=== PATIENT | male | born 1965 | race Caucasian/White ===

== ENCOUNTER → 2018-04-18 13:27 | Outpatient (CLI) | payer OTHER, SELFPAY ==
--- NOTE | 2018-04-18 13:31 | RAD_ITS ---
STUDY: X-RAY - LUMBOSACRAL SPINE REASON FOR EXAM: Male, 53 years old. Pain. TECHNIQUE: 7 view(s) of the lumbosacral spine were obtained including flexion and extension. COMPARISON: None FINDINGS: Normal lumbar lordosis. There is no substantial scoliosis. There is normal alignment of the vertebrae. There is multilevel endplate spondylosis of the lumbar vertebrae. Multilevel mild loss of disc height and moderate loss of disc height at L5-S1. Grossly normal range of motion with no subluxations. Normal bilateral sacral ala, sacroiliac joints, and visualized sacrum. Normal visualized soft tissue structures. RAD/L/S Spine Comp/w Bending Views IMPRESSION: Multilevel mild to moderate degenerative disc disease and no acute abnormality. Electronically Signed: Martín Schaeffer MD at 20:04 EDT , Service support ,
== END ==
PROVIDERS: Family Provider Preventive Medicine Occupational Medicine; PCP Preventive Medicine Occupational Medicine; Visit Provider Orthopaedic Surgery
DX: M54.5 Low back pain (principal)
CPT/HCPCS: 72114

== ENCOUNTER 2018-05-24 17:00 | Outpatient (RCR) | payer OTHER, SELFPAY ==
--- NOTE | 2018-05-01 15:55 | HP.PTEVAL_ITS ---
Patient's Visit Information LAUREN FORD is a 53 year old M referred to Physical Therapy by Arcelia Chávez DO with a diagnosis of B sacralitis and IT band syndrome. Date of Evaluation: 04/24/18 Physical Therapist: Donell Britt - Visit Plan Frequency: 2x /Week Duration: 4 Weeks Plan: Start with extension progression. Assess leg length issues next visit. Re assess lateral shift with REIL. May use modalities as needed. - Subjective Subjective: Pt. is here today for his initial evaluation with diagnosis of B sacralitis and ITB syndrome. Pt. reports having back pain for many years, but has become worse reacently. 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 Pt. reports increased pain with sitting, AMs, lifting, bending and twisting. Decreased pain: staying active. Pt. has not had an MRI at this point in time. Xray showed mild disc height loss at L5/S1. Pt. denies N/T in either LE. Pt. has not trialed exercises, injections or medications at this point in time. He does report increased difficulty with sleeping as well. He reports no changes in B/B and no LE weakness. Pt. is hopeful to reduce symptoms in order to get back to all recreational activities without limitations. - Pain L side of lumbar spine/SI Pain Intensity (Out of 10): 3 Pain Intensity Range: 3, 7 - Objective POSTURE: Pt. has reduced lumbar lordsis in sitting and standing, sway back posture. He has slight left lateral shift with trunk correction. PALPATION: Pt. has increased pain to L sided SI joint and L lumbar paraspinals. Slight R sided pain. NEUROLOGICAL: PT. has normal sensation to light and sharp touch. Pt. has 2+ achilles and patellar DTR. Normal heel/toe raise. ROM: LUMBAR SPINE : flexion min loss increase nW, ext mod loss increase nW, SB min loss bilat mild increase NW bilat, rotation min loss incerase nW bilat. HIP- pt. has normal ROM of bilateral hips, tightness in B HS. MMT: Pt. has 5/5 BLE strength , except hip abd 4+/5, and ext 4+/5. Core strength- fair-. GAIT: Pt. has slight L lateral shift in stance and with gait. Pt. had decreased step lenght bilaterally. STAIRS: no increas in symptoms. - Goals Goal 1:: Pt. to be I with HEP. Goal Time Frame: 4-6 Weeks Goal 2:: Pt. to have increased lumabr ROM by 25% in all directions without increase insymptoms. Goal Time Frame: 4-6 Weeks Goal 3:: Pt. to have increased Core strength by 1/2 grade to reduce stress applied to lumbar spine. Goal Time Frame: 4-6 Weeks Goal 4:: Pt. to resume all work and rectional activities withot increase in symptoms. Goal Time Frame: 4-6 Weeks - Rehabilitation Potential Physical Therapy Diagnosis: Pt. has signs and symptoms consistent with B sacralitis and IT band syndrome. Can not rule on L5/S1 disc injury with lateral component. Pt. would benefit from PT to increase lumabr ROM and decrease symptoms. Rehabilitation Potential: Excellent - Anticipated Interventions Patient/Client Instruction: Educate patient on: Condition, Plan of Care, Risk Factors, Benefits of Fitness Program For the Purpose of:: To improve health and function, To foster healthy habits, To improve decision making, To facilitate caregiver knowledge, To improve self management, To prevent re-injury, To improve ability to perform tasks related to life management Therapeutic Exercise to Include: Strength training, Power training, Body mechanics, Postural training, Flexibilty training, Passive ROM, Active ROM, Dynamic Lumbar Stabilization, Mark Exercises For the Purpose of:: To decrease pain, To increase ROM, To improve nutrient delivery to tissue, To increase oxygenation perfusion, To improve muscle performance and motor function, To improve ability to perform ADL's, To improve health of tissue, To decrease soft tissue restriction, To increase flexibility/ ROM Manual Therapy Techniques to Include: Trigger point massage, Massage, Mobilization, Manipulation, Passive ROM, Functional dry needling, Soft tissue mobilization For the Purpose of:: To decrease pain, To increase ROM, To improve nutrient delivery to tissue, To increase oxygenation perfusion, To improve muscle performance and motor function, To improve ability to perform ADL's, To improve health of tissue, To decrease soft tissue restriction, To increase flexibility/ ROM IF ES: Yes Cryotherapy (ice pack, ice massage): Yes Thermo therapy (hot pack): Yes Ultrasound (thermal/non thermal): Yes Pelvic traction supine: Yes For the Purpose of:: To decrease pain, To decrease swelling/inflammation, To increase ROM, To improve health of tissue, To decrease soft tissue restriction, To increase flexibility/ROM, To foster healthy habits Thank you for the opportunity to evaluate your patient. For Medicare and Medicare HMO plans, please review the plan of care and approve it. It will need to be FAXED BACK to us at [phone] for Medicare purposes. Please let me know if there are questions or concerns regarding this plan of care. Physician Signature: Date:
--- NOTE | 2018-06-20 07:38 | HP.PTDCSUM ---
HP - PT D/C Summary It has been my pleasure to treat LAUREN FORD under orders from Arcelia Chávez DO, for the diagnosis of B sacralitis and IT band syndrome for a total of 9 visit(s). Discharge Date: 05/24/18 Please see the following information for a summary of their discharge status. - Subjective Subjective: Pt. reports I am doing a little better today.' Pt. reports symptoms are less frequent. Pt. pleased. Pt. reports being 80% better overall. Pt. desires to continue with HEP on own at this point in time. - Pain L side of lumbar spine/SI Pain Intensity (Out of 10): 0 - Overall Improvement % Improvement: 80 - Objective Objective/Function: ROM- flexion- nil loss NE, ext min loss decrease in symptoms, SB nil loss bilat NE, rotation nil loss NE. Pt. has tightness in HS. Pt. reports mild increase in symptoms at R SI joint with rolling over in bed. Pt. reports no pain with sitting or walking. No distal symptoms. Pt. has been trained in strengthening and in lumbar ROM exercises to complete and is independent with them. - Goals Goal 1:: Pt. to be I with HEP. Goal Progress: Goal Met Goal 2:: Pt. to have increased lumabr ROM by 25% in all directions without increase insymptoms. Goal Progress: Goal Met Goal 3:: Pt. to have increased Core strength by 1/2 grade to reduce stress applied to lumbar spine. Goal Progress: Progressing Goal 4:: Pt. to resume all work and rectional activities withot increase in symptoms. Goal Progress: Progressing - Plan Plan: Pt. to be DC to HEP and to follow up with physician if symptoms reoccure. Pt. is independent with current HEP. - D/C Information Discharge Comments: Pt. progressed with lumbar ROM, extension progression. Pt. did well with PA and REIL with over pressure. He was progressing to core stability exercises. Pt. has a proper HEP and is independent with it. Pt. will continue with HEP on own and be DC from PT at this point in time. If there are questions or concerns regarding this patient's physical therapy, please feel free to call me at [phone]. Thank you for the referral of this patient. Sincerely, Donell Britt
== END 2018-05-24 19:00 | disposition home or self-care (01) ==
LOC: PT 17:00
PROVIDERS: Family Provider Preventive Medicine Occupational Medicine; PCP Preventive Medicine Occupational Medicine; Visit Provider Orthopaedic Surgery
DX: M46.1 Sacroiliitis, not elsewhere classified (principal); M76.31 Iliotibial band syndrome, right leg; M76.32 Iliotibial band syndrome, left leg
CPT/HCPCS: 97014; 97110; 97161; G0283

== ENCOUNTER 2019-09-29 22:25 | Emergency (ER) | payer OTHER, SELFPAY ==
[2019-09-29 22:26] VITALS: BP 158/78; PULSE 72; RESP 20; TEMP 36.6; O2SAT 98; BMI 32.5
--- NOTE | 2019-09-29 22:39 | EKG12_ITS ---
Test Reason : PALPS Blood Pressure : / mmHG Vent. Rate : 073 BPM Atrial Rate : 073 BPM P-R Int : 130 ms QRS Dur : 090 ms QT Int : 398 ms P-R-T Axes : 040 031 009 degrees QTc Int : 438 ms Normal sinus rhythm Normal ECG Confirmed by POLI CAR MD ([id number]), editor map GUSTAVO CLARKE ([id number]) on 10/01/2019 2:46:37 PM Referred By: Confirmed By:POLI CAR MD
--- NOTE | 2019-09-29 22:39 | ED.VIS.GEN ---
History of Present Illness Chief Complaint: Palpitations Informant: Patient Onset: Month(s) - 1 Context: Gradual Onset Timing: Intermittent Quality: racing and beating hard Location: chest Current Severity: gone Maximum Severity: Moderate Worsened by: light exertion, lying flat Associated Symptoms: none; no chest pain, sob, lightheadedness/near-syncope, LE swelling Narrative: Patient has been feeling this way for about a month. When he climbs stairs he is getting headaches and just feeling like my blood pressure is up. He did not have his blood pressure checked until tonight at work, it was 190 systolic. He does not take any medication for blood pressure and states that he has always been around 110, normal and never required any treatment. He takes medication for hyperlipidemia and type 2 diabetes, those are not new and they have not changed recently, he denies any drug abuse, denies any changes in caffeine intake which is usually 2 or 3 cups of coffee in the mornings, denies taking any [id number] medications or recent illnesses including colds. No focal neurologic symptoms. He does not get the palpitations with exertion, mainly with lying down. He has no orthopnea. He states his 6 months ago and he has been dealing with that but overall has been doing fairly well emotionally and does not feel acutely stressed about anything in particular. Prior similar symptoms: No Recent Illness/Hospitalization: No - Past Medical History (1) Hyperlipidemia Status: Chronic (2) Type 2 diabetes mellitus Status: Chronic Past Medical History - Allergies and Home Meds Allergies/Adverse Reactions: Allergies No Known Allergies Allergy (Verified 09/29/19 22:26) Primary Care Physician: Tushar Greenberg DO [Primary Care Provider] - Lives: With Family Smoking Status: Current some day smoker Drugs: None Review of Systems General: Denies: Chills, Fever, Sweats Eyes: Denies: Visual changes - bilaterally, Diplopia ENT: Denies: Rhinorrhea, Sore throat Cardiovascular: Reports: Palpitations, Heart racing. Denies: Chest pain Respiratory: Denies: Dyspnea, Cough, Dyspnea on exertion Gastrointestinal: Denies: Abdominal pain, Nausea, Vomiting, Diarrhea, Melena, Hematochezia Genitourinary: Denies: Dysuria, Hematuria, Frequency Musculoskeletal: Denies: Back pain, Swelling, Extremity Pain Skin: Denies: Rash, Wounds Neurological: Reports: Headache - mild off and on; no thunderclaps. Denies: Weakness, Parasthesia, Numbness Physical Exam Vital Signs/Narrative: Vital Signs Temp Pulse Resp BP Pulse Ox 09/29/19 22:26 97.8 F 72 20 H 158/78 H 98 Inital Vital Signs reviewed: Yes General: Well nourished, Well developed, No Acute Distress Head: Normocephalic, Atraumatic Eyes: Perrl, EOMI ENT: Moist mucous membranes, No rhinorrhea Neck: Supple, Nontender, No lymphadenopathy, No JVD Cardiovascular: Regular rate, Regular rhythm, No murmurs, Normal S1, Normal S2 Respiratory: No distress, CTA bilaterally, Chest nontender Abdomen: Soft, Nontender, Nondistended, Normal bowel sounds Back: Nontender, Normal Inspection Extremities: Nontender, No edema. Negative for: Calf Tenderness Skin: Normal color, No rash, No Trauma Neurological: Alert, Oriented x3, Cranial nerves II-XII grossly intact, Normal Strength, Normal Sensation, Normal Gait Psychological: Normal affect, Normal Mood Diagnostic/Tx/Re-eval Laboratory Results 09/29/19 09/29/19 09/30/19 22:30 22:30 00:02 WBC 8.5 RBC 5.11 Hgb 17.0 H Hct 49.1 MCV 96.1 H MCH 33.3 H MCHC 34.6 RDW Std Deviation 43.8 RDW Coeff of Uma 12.3 Plt Count 220 MPV 9.6 Immature Gran % (Auto) 0.200 Neut % (Auto) 55.8 Lymph % (Auto) 31.0 [place] % (Auto) 9.1 Eos % (Auto) 3.4 Baso % (Auto) 0.5 Absolute Neuts (auto) 4.8 Absolute Lymphs (auto) 2.65 Nucleated RBC % 0 Sodium 140 Potassium 3.5 Chloride 102 Carbon Dioxide 30.0 Anion Gap 8 BUN 18 Creatinine 1.04 Estim Creat Clear Calc 82.14 Est GFR (MDRD) Af Amer 96 Est GFR (MDRD) Non-Af 79 BUN/Creatinine Ratio 17.3 Glucose 225 H Calcium 9.6 Troponin I < 0.015 Urine Color Yellow Urine Clarity Clear Urine pH 6.0 Ur Specific Jessie 1.015 Urine Protein Negative Urine Glucose (UA) 1000 H Urine Ketones Negative Urine Occult Blood Negative Urine Nitrite Negative Urine Bilirubin Negative Urine Urobilinogen Normal Ur Leukocyte Esterase Negative Urine RBC 0 SEEN Urine WBC 0 SEEN Ur Squamous Epith Cells 0 SEEN Urine Bacteria 0 SEEN Urine Mucus 0 SEEN - Rhythm Strip Rhythm Strip: Sinus Rhythm Rate: 75 Ectopy: None - EKG Initial EKG Interpretation: Sinus Rhythm, No Acute Injury Pattern - normal EKG - Medical Decision Making Work-up is unremarkable. Patient is on lisinopril that he takes every night, not necessarily for blood pressure but due to being a diabetic for renal protection. He feels he may have had some increased stress but is not having anxiety/panic attacks. He wonders if that is related to this, certainly that is possible but not definitively linked or causative. As we observed him in the ER, his initial blood pressures were very high but they went down to the 120-130 range systolic. He remained asymptomatic. Orthostatics are unremarkable. I feel he can safely be discharged home. I recommend trying a couple things, may be taking his lisinopril every morning instead, decreasing caffeine intake or cutting it altogether for a couple days to see if it helps or changes any symptoms, possibly following up for a Holter monitor to rule out ectopic/supraventricular dysrhythmias, he is agreeable to follow-up. ED Disposition - Plan for ED Patient: Disposition: Home or Assisted Living Diagnosis: Labile blood pressure Instructions: Palpitations Referrals: Tushar Greenberg DO [Primary Care Provider] - 1 Week
[2019-09-29 22:46] LABS: Absolute Lymphocyte Count 2.65 X10^3/uL (0.83-4.51); Absolute Neutrophil Count 4.8 X10^3/uL (2.0-7.7); Basophil# 0.04 X10^3/uL; Basophil% 0.5 % (0-1); Eosinophil# 0.29 X10^3/uL; Eosinophils% 3.4 % (0-5); Hematocrit 49.1 % (40-54); Lymphocyte # 2.65 X10^3/ul (4.0); Mean Corp Hgb Conc 34.6 g/dL (32-36); Mean Corpuscular Hgb 33.3 pg (27.0-32.0); Mean Corpuscular Volume 96.1 fL (80-94); Mean Platelet Vol. 9.6 fl (6.2-12.0); Monocyte# 0.78 X10^3/uL; Monocyte% 9.1 % (0-10); NRBC Flagged by Analyzer 0 % (0-5); Neutrophil # 4.76 X10^3/uL (2.7-7.7); Neutrophil % 55.8 % (47-70); Platelet Count 220 K/mm3 (150-450); RBC Distribution Width CV 12.3 % (11.6-14.6); RBC Distribution Width SD 43.8 fl (35.1-43.9); Red Blood Count 5.11 M/mm3 (4.6-6.2); White Blood Count 8.5 K/mm3 (4.4-11.0)
[2019-09-29 22:59] LABS: Anion Gap 8 (5-15); BUN 18 mg/dL (7-18); BUN/Creat Ratio 17.3 RATIO (10-20); Calcium,Total 9.6 mg/dL (8.5-10.1); Chloride 102 mmol/L (98-107); Creatinine, Serum 1.04 mg/dL (0.70-1.30); EST Glomerular Filtration Rate 79 mL/min (>60); Est Glom Filt Rate - Afr Amer 96 mL/min (>60); Estimated Creatinine Clearance 82.14 ml/min; Glucose 225 mg/dL (74-106); Potassium 3.5 mmol/L (3.5-5.1); Sodium Level 140 mmol/L (136-145)
[2019-09-29 23:32] VITALS: BP 128/76; PULSE 67; RESP 18; O2SAT 95
[2019-09-30 00:04] VITALS: BP 139/79; BP 142/71; BP 143/79; BP 145/74; PULSE 62; PULSE 68; PULSE 73; PULSE 78; RESP 15; O2SAT 99
[2019-09-30 00:07] LABS: Bacteria 0 SEEN /hpf (None Seen); Mucous, Urine 0 SEEN /hpf (<or=2+); Red Blood Cells-Urine 0 SEEN /hpf (0-5); Squamous Epithelial Cells - UA 0 SEEN /hpf (0-5); White Blood Cells 0 SEEN /hpf (0-5)
[2019-09-30 00:08] LABS: Color, Urine Yellow (Yellow); Glucose, Dipstick 1000 mg/dl (Normal); Ketone-Dipstick Negative (Negative); Leukocyte Esterase-Dipstick Negative /ul (Negative); Nitrite-Dipstick Negative (Negative); Occult Blood-Urine Negative /ul (Negative); Protein-Dipstick Negative (Negative); Specific Gravity, Urine 1.015 (1.002-1.030); Urine Bilirubin Dipstick Negative (Negative); Urine Clarity Clear (Clear); Urine Urobilinogen Normal (Normal)
[2019-09-30 00:48] VITALS: BP 134/79; PULSE 69; RESP 18; O2SAT 97
--- NOTE | 2019-09-30 00:48 | ED.RN ---
THIS NURSE REVIEWED D/C INSTRUCTIONS WITH PT. PT VERBALIZED UNDERSTANDING OF INSTRUCTIONS. IV D/C. IV CATHETER INTACT. PT TOLERATED WELL. PT DENIES FURTHER NEEDS OR QUESTIONS AT THIS TIME.
== END 2019-09-30 00:49 | disposition home or self-care (01) ==
PROVIDERS: Emergency Provider Emergency Medicine; Family Provider Preventive Medicine Occupational Medicine; PCP Preventive Medicine Occupational Medicine
DX: R09.89 Other specified symptoms and signs involving the circulatory and respiratory systems (principal); E11.9 Type 2 diabetes mellitus without complications; E78.5 Hyperlipidemia, unspecified; Z79.84 Long term (current) use of oral hypoglycemic drugs; Z79.82 Long term (current) use of aspirin; Z79.899 Other long term (current) drug therapy; F17.200 Nicotine dependence, unspecified, uncomplicated
CPT/HCPCS: 80048; 81001; 84484; 85025; 93005; 99285; A4216

== ENCOUNTER 2021-01-16 07:53 | Emergency (ER) | payer OTHER, SELFPAY ==
[2020-02-18 10:45] VITALS: BMI 32.5
[2021-01-16 07:53] VITALS: BP 153/82; PULSE 74; RESP 16; TEMP 36.6; O2SAT 100; BMI 29.2
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
[2021-01-16 09:02] VITALS: BP 116/93; PULSE 72; RESP 16; O2SAT 93
== END 2021-01-16 09:03 | disposition home or self-care (01) ==
LOC: ED 08:53
PROVIDERS: Emergency Provider Emergency Medicine; PCP Preventive Medicine Occupational Medicine
DX: S29.012A Strain of muscle and tendon of back wall of thorax, initial encounter (principal); S20.219A Contusion of unspecified front wall of thorax, initial encounter; M54.2 Cervicalgia; V53.5XXA Driver of pick-up truck or van injured in collision with car, pick-up truck or van in traffic accident, initial encounter; Y93.89 Activity, other specified; Y92.411 Interstate highway as the place of occurrence of the external cause; Y99.0 Civilian activity done for income or pay; E11.9 Type 2 diabetes mellitus without complications; E78.5 Hyperlipidemia, unspecified; Z79.82 Long term (current) use of aspirin; Z79.4 Long term (current) use of insulin; Z79.899 Other long term (current) drug therapy
CPT/HCPCS: 71046; 99282

== ENCOUNTER → 2021-02-25 13:17 | Outpatient (CLI) | payer OTHER, SELFPAY ==
[2021-02-25 06:52] VITALS: BMI 30.7
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
== END ==
PROVIDERS: PCP Preventive Medicine Occupational Medicine; Referring Provider Physician Assistant; Visit Provider Physician Assistant
DX: S20.219A Contusion of unspecified front wall of thorax, initial encounter (principal); S29.012A Strain of muscle and tendon of back wall of thorax, initial encounter; X58.XXXA Exposure to other specified factors, initial encounter; Y93.9 Activity, unspecified; Y92.9 Unspecified place or not applicable; Y99.9 Unspecified external cause status
CPT/HCPCS: 72128

== ENCOUNTER → 2021-04-06 06:22 | Outpatient (CLI) | payer OTHER, SELFPAY ==
[2021-03-11 07:11] VITALS: BMI 30.7
[2021-03-25 06:56] VITALS: BMI 30.7
--- NOTE | 2021-04-06 06:24 | MRI_ITS ---
STUDY: MRI CERVICAL SPINE WITHOUT CONTRAST REASON FOR EXAM: Male, 56 years old. pain, muscle strain neck and upper back TECHNIQUE: Standardized fat and water weighted pulse sequences were obtained in the sagittal and axial planes. COMPARISON: None FINDINGS: Normal foramen magnum and brainstem-cervical cord junction. There is straightening of the normal cervical lordosis. C2-3: There is minimal disc space narrowing and endplate spondylosis. There is no significant disc herniation, central canal or foraminal stenosis. C3-4: There is minimal disc space narrowing and endplate spondylosis. There is no significant disc herniation, central canal or foraminal stenosis. C4-5: There is minimal disc space narrowing and endplate spondylosis. There is no significant disc herniation, central canal or foraminal stenosis. C5-6: There is moderate disc space narrowing and endplates spondylosis. Moderate disc osteophyte complex with mild central canal stenosis. Uncovertebral and facet arthropathy with moderate right and mild left foraminal stenosis. C6-7: There is moderate disc space narrowing and endplates spondylosis. Moderate disc osteophyte complex with mild central canal stenosis. Uncovertebral and facet arthropathy with moderate right and moderate left foraminal stenosis. C7-T1: There is minimal disc space narrowing and endplate spondylosis. There is no significant disc herniation, central canal or foraminal stenosis. Normal cervical cord. MRI/Spine Cervical (Routine) IMPRESSION: C5/C6: Mild central canal stenosis. Moderate right and mild left foraminal stenosis. C6/7: Mild central canal stenosis. Moderate right and moderate left foraminal stenosis. Electronically Signed: Dora Hunt MD at 15:16 EDT Tel , Service support ,
== END ==
PROVIDERS: PCP Preventive Medicine Occupational Medicine; Referring Provider Orthopaedic Surgery; Visit Provider Orthopaedic Surgery
DX: S16.1XXA Strain of muscle, fascia and tendon at neck level, initial encounter (principal); S29.012A Strain of muscle and tendon of back wall of thorax, initial encounter; X58.XXXA Exposure to other specified factors, initial encounter; Y93.9 Activity, unspecified; Y92.9 Unspecified place or not applicable; Y99.9 Unspecified external cause status
CPT/HCPCS: 72141

== ENCOUNTER 2021-04-23 09:00 | Outpatient (RCR) | payer OTHER, SELFPAY ==
[2021-01-19 09:37] VITALS: BMI 30.5
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
--- NOTE | 2021-04-23 09:26 | HP.PTDCSUM ---
It has been my pleasure to treat LAUREN FORD referred by WYATT Zamora, with the diagnosis of STRAIN OF MUSCLE BACK THORACIC,CERVICAL RADICULOPATHY,STRAIN SHOULDER for a total of 17 visit(s). Discharge Date: 04/23/21 Please see the following information for a summary of their discharge status. Subjective: Ready for d/c .RTW fully time .. No pain Left Shoulder Pain Intensity (Out of 10): 0 Bilateral Neck Pain Intensity (Out of 10): 0 RDZ Pain Intensity (Out of 10): 0 % Improvement: 85 Objective/Function: POSTURE: WFL. CERVICAL ROM: WFL FELXION/ROTATION/LATERAL FLEXION/EXTENSION. MMT: BUE 4/5 Goal 1:: I with HEP Goal Progress: Goal Met Goal 2:: Patient to decrease pain by 70% or > to improve function with job demnads and ADLS Goal Progress: Goal Met Goal 3:: Patient to improve left shoulder ROM WFL to improve function and job demands. Goal Progress: Goal Met Goal 4:: Patient to improve cervical ROM for function of recovery Goal Progress: Goal Met Goal 5:: Patient to improve neck owestry score by 5 points or > to improve function Goal Progress: Goal Met Goal 6:: Patient to RTW without limiations or restrictions Goal Progress: Goal Met Plan: D/C TO [facility] Discharge Comments: [facility] If there are questions or concerns regarding this patient's physical therapy, please feel free to call me at [phone]. Thank you for the referral of this patient. Sincerely, Lj Villarreal, PT, Cert MDT, OCS
== END 2021-04-23 19:00 | disposition home or self-care (01) ==
LOC: PT 09:00
PROVIDERS: PCP Preventive Medicine Occupational Medicine; Referring Provider Physician Assistant; Visit Provider Physician Assistant
DX: S29.012D Strain of muscle and tendon of back wall of thorax, subsequent encounter (principal); S20.213D Contusion of bilateral front wall of thorax, subsequent encounter; S16.1XXD Strain of muscle, fascia and tendon at neck level, subsequent encounter; S46.912D Strain of unspecified muscle, fascia and tendon at shoulder and upper arm level, left arm, subsequent encounter; M54.12 Radiculopathy, cervical region
CPT/HCPCS: 97012; 97014; 97110; 97140; 97161; 97530; G0283

== ENCOUNTER → 2022-11-12 | Outpatient (CLI) | payer OTHER, SELFPAY ==
--- NOTE | 2022-11-12 06:45 | CT_ITS ---
STUDY: CT ABDOMEN AND PELVIS WITH CONTRAST REASON FOR EXAM: Male, 57 years old. Probable recurrent umbilical hernia, -- oral and IV RADIATION DOSAGE (If Supplied By Facility): CTDIvol = ( 15.52 ) mGy, DLP = ( 1179.20 ) mGycm TECHNIQUE: Transaxial images were obtained from the dome of the diaphragm to the symphysis pubis with oral contrast. Oral and amp; IV Readi-CAT and amp; 100mL Isovue-370 was administered. Sagittal and coronal images were reconstructed. Individualized dose optimization techniques were used for this CT. COMPARISON: None. FINDINGS: Minimal increased markings at the right lung base suggests a mild degree of basilar atelectasis. The visualized portions of the heart are within normal limits. Normal liver. Normal gallbladder and extrahepatic biliary system. Normal spleen. Normal pancreas. Normal bilateral adrenal glands. There is a 2.9 cm x 2.5 cm x 2.7 cm heterogeneously enhancing mass in the posterior medial aspect of the midportion of the right kidney. A neoplastic process should be ruled out. There is a 9.3 mm cyst in the medial portion of the left kidney. There is a small hiatal hernia. Normal small intestine. There are scattered colonic diverticula consistent with diverticulosis. The appendix is visualized and appears normal. Small lymph nodes are seen within the mesenteric fat in the right lower quadrant suggestive of a mesenteric adenitis. There is scattered atherosclerotic calcification of the abdominal aorta, without a demonstrated aneurysm. Normal inferior vena cava. Normal retroperitoneum. Normal urinary bladder. There is enlargement of the prostate gland. It measures 4.9 cm x 4.9 cm. This causes indentation at the bladder base. There is thickening of the abdominal wall musculature at the level of the umbilicus without a afshin umbilical hernia. Disc space narrowing and degeneration with spondylosis at the L5-S1 level. CT/Abdomen/Pelvis WITH Contrast IMPRESSION: 2.9 cm x 2.5 cm x 2.7 cm heterogeneously enhancing mass in the medial posterior midportion of the right kidney. A neoplastic process should BE ruled out. Small left renal cyst. Sigmoid diverticulosis. Prostatic enlargement with indentation at the bladder base. Electronically Signed: Cuong Caballero MD at 8:32 EST ,
[2022-11-12 07:10] LABS: CREATININE FINGERSTICK 1.2 mg/dL (0.70-1.30); EGFR FINGERSTICK > 60.0000 mL/min (>60)
== END | disposition home or self-care (01) ==
LOC: CT 06:43
PROVIDERS: PCP Preventive Medicine Occupational Medicine; Visit Provider Surgery
DX: K42.9 Umbilical hernia without obstruction or gangrene (principal); K44.9 Diaphragmatic hernia without obstruction or gangrene; N28.1 Cyst of kidney, acquired; K57.30 Diverticulosis of large intestine without perforation or abscess without bleeding
CPT/HCPCS: 74177; Q9967

== ENCOUNTER 2025-06-14 07:00 | Outpatient (RCR) | payer OTHER, SELFPAY ==
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
--- NOTE | 2025-06-14 07:36 | HP.PTDCSUM ---
Discharge Summary D/C summary: It has been my pleasure to treat LAUREN FORD referred by WYATT Hernandez, with the diagnosis of DDD lumbar with back and leg pain for a total of 10 visit(s). Discharge Date: 06/14/25 Please see the following information for a summary of their discharge status. Subjective Subjective: Pt is better. He is not waking up at night now. If he still does too much he will be in pain. Pt feels he is ok to do his HEP and understands what to do. He will go back to his Dr to see what the next step is. Pain Back pain: Pain Intensity (Out of 10): 3 L Leg pain: Pain Intensity (Out of 10): 5 L knee pain: Pain Intensity (Out of 10): 0 Overall Improvement % Improvement: 60 Objective Objective/Function: Pt really felt the MT to the glut med and the foam rolling to it. ALso felt on all 4's hip hike on the L Goals Goal 1:: I HEP Goal Progress: Goal Met Goal 2:: Walk with normal gait pattern and equal stance time Goal Progress: Progressing Goal 3:: Increase L painfree IT band and pirformis length Goal Progress: Progressing Goal 4:: Be able to sleep without waking up in pain Goal Progress: Goal Met Plan Plan: Dc PT to HEP and back to Dr for reassessment D/C Information Discharge Comments: DC PT to HEP d/c sentence: If there are questions or concerns regarding this patient's physical therapy, please feel free to call me at [phone]. Thank you for the referral of this patient. Sincerely, Pamella Moore, MPT Balance/Gait/Functional tests Balance/Special Test Scores Oswestry Low Back Score: 9 Improvement % Improvement: 60
== END 2025-06-14 10:02 | disposition home or self-care (01) ==
LOC: PT 07:00
PROVIDERS: PCP Preventive Medicine Occupational Medicine; Referring Provider Student in an Organized Health Care Education/Training Program; Visit Provider Student in an Organized Health Care Education/Training Program
DX: M51.362 Other intervertebral disc degeneration, lumbar region with discogenic back pain and lower extremity pain (principal); M54.16 Radiculopathy, lumbar region
CPT/HCPCS: 97110; 97161

== ENCOUNTER → 2025-08-01 | Outpatient (CLI) | payer OTHER, SELFPAY ==
--- NOTE | 2025-08-01 10:40 | MRI_ITS ---
PROCEDURE: SPINE LUMBAR (ROUTINE) 08/01/2025 REASON FOR EXAM: PAIN AFTER THERAPY X6-8 WEEKS TECHNIQUE: Procedure Code: MRISPL Modality: MR Procedure: SPINE LUMBAR (ROUTINE) COMPARISON: Lumbar spine series of 04/25/2025. FINDINGS: Vertebrae: Intact. No evidence of spondylolysis. Alignment: No subluxation is seen. Conus Medullaris: Unremarkable, terminating in the T12-L1 level. L1-2: No significant spinal canal stenosis or neural foraminal narrowing is seen. L2-3: No significant spinal canal stenosis or neural foraminal narrowing is seen. L3-4: A very mild disc bulge is noted. No spinal canal stenosis or significant neural foraminal narrowing is seen. L4-5: Mild posterior facet and ligamentum flavum hypertrophy is seen. A mild right lateral disc protrusion is seen. No significant spinal canal stenosis or neural foraminal narrowing is seen. L5-S1: Mild posterior facet and ligamentum flavum hypertrophy is seen. Slight vertebral body osteophytosis is noted. A mild broad-based disc protrusion is asymmetrically greater to the right. No significant degree of spinal canal stenosis is noted, and no significant neural foraminal narrowing is appreciated. Sacrum: Mild degenerative changes seen upon limited evaluation. MRI/Spine Lumbar (Routine) IMPRESSION: Lower lumbar degenerative disc disease as described. No evidence of spinal canal stenosis or significant neural foraminal narrowing. Reading Location: [place] [id number]
== END | disposition home or self-care (01) ==
PROVIDERS: PCP Preventive Medicine Occupational Medicine; Referring Provider Student in an Organized Health Care Education/Training Program; Visit Provider Student in an Organized Health Care Education/Training Program
DX: M51.362 Other intervertebral disc degeneration, lumbar region with discogenic back pain and lower extremity pain (principal); M48.062 Spinal stenosis, lumbar region with neurogenic claudication
CPT/HCPCS: 72148

== ENCOUNTER 2025-10-14 12:04 | Day surgery (SDC) | payer OTHER, SELFPAY ==
[2025-10-14] VITALS (8 sets, daily range): BP systolic 102–123; BP diastolic 65–70; PULSE 52–59; RESP 16; TEMP 36.1–36.4; O2SAT 95–98; BMI 27.3
[2025-10-14] MEDS: 0.9% Normal Saline (Pres. free 10 ML Vial (01:12)
[2025-10-14] MEDS: Lactated Ringers 1,000 ML 15 ML IV (12:38)
--- NOTE | 2025-10-14 12:45 | PCM.PRE.AN2 ---
ASA Classification* ASA Classification ASA Classification: 2 Assessment & Plan Anesthesia* Anesthesia Assessment Anesthesia Assessment: Discussed sedation and/or anesthesia options, risks, benefits, and alternatives with patient/parents/legal guardian/POA. Questions invited. The patient/parents/legal guardian/POA seems to understand and agrees to proceed with anesthesia plan. Reviewed the physical assessment, medical history, allergy history and patient home medications list prior to surgery/procedure/anesthetic and documented any changes. Performed airway and anesthesia risk assessments. Anesthesia Type Anesthesia Type: MAC History Source History Obtained from:: Patient and Chart Anesthesia Focused Assessment* Temperature: 97.6 F Pulse Rate: 58 Blood Pressure: 123/67 Respiratory Rate: 16 Pulse Ox: 98 Oxygen Delivery Method: Room Air Airway Assessment Mouth opens: >3 cm Mallampati Score: III Teeth Condition: Caps/Crowns (Patient has several caps and crowns. They Are All Tight.) Neck Range of motion (ROM): Limited ROM (Somewhat Decreased) Labs Anesthesia Preop lab: CBC WBC, (4.4-11.0) 8.5 K/mm3 09/29/19, 22:30 RBC, (4.6-6.2) 5.11 M/mm3 09/29/19, 22:30 Hgb, (13.0-16.5) 17.0 g/dL H 09/29/19, 22:30 Hct, (40-54) 49.1 % 09/29/19, 22:30 Plt Count, (150-450) 220 K/mm3 09/29/19, 22:30 CHEMISTRY Potassium, (3.5-5.1) 3.5 mmol/L 09/29/19, 22:30 Sodium, (136-145) 140 mmol/L 09/29/19, 22:30 BUN, (7-18) 18 mg/dL 09/29/19, 22:30 Creatinine, (0.70-1.30) 1.04 mg/dL 09/29/19, 22:30 Glucose, (74-106) 225 mg/dL H 09/29/19, 22:30 COAG Pre-Assessment Diagnosis/Proposed Procedure Planned Operative Procedure(s): Block, Caudal Anesthesia History Anesthesia History - administrative volunteer: Anesthesia History - administrative volunteer Hx Hospitalization No 10/10/25 08:38 Any Problems With Anesthesia No 10/10/25 08:38 Cholinesterase deficiency No 10/10/25 08:38 You/Your Family Experience No 10/10/25 08:38 fever (hyperthermia) with Relationship Recent Exposure to Contagious No 10/14/25 12:31 Disease Does patient have nerve No 10/10/25 08:38 stimulator Patient instructed to have device shut off --Does patient have Pacemaker No 10/14/25 12:31 or ICD? When Was Last Pacemaker Check QUESTION #4 FULL TEXT: You/Your Family Experience fever (hyperthermia) with Anesthesia Last Oral Intake Last Oral intake: Last Oral Intake NPO since 05:30 10/14/25 12:31 Meds taken in AM with sips of water? Meds patient instructed to take am of surgery Any additional information?: Yes NPO since: 05:30 (Patient had coffee at 5:30 AM.) Meds taken in AM with sips of water?: Yes Meds patient instructed to take am of surgery: Metformin PONV PONV - administrative volunteer: PONV - administrative volunteer Female No 10/10/25 08:38 HX of Motion Sickness No 10/10/25 08:38 HX of N/V After Surgery No 10/10/25 08:38 Non-Smoker Yes 10/10/25 08:38 Duration of Surgery greater No 10/10/25 08:38 than 60 minutes Number of Risk Factors 1 10/10/25 08:38 PONV Score Low Risk 10/10/25 08:38 Height & Weight Height & Weight: Anesthesia: Height & Weight Height 5 ft 11 in 10/14/25 12:31 Weight: 89 kg 10/14/25 12:31 Body Mass Index (BMI) 27.3 10/14/25 12:31 Respiratory Assessment Respiratory Assessment - administrative volunteer: Respiratory Tract Infection Hx - administrative volunteer Hx Respiratory Tract Infection No 10/10/25 08:38 STOP Sleep Apnea STOP Sleep Apnea - administrative volunteer: STOP Sleep Apnea - administrative volunteer Hx Hypertension No: ON LISINOPRIL TO PROTECT 10/10/25 08:38 KIDNEY'S Hx Sleep Apnea No 10/10/25 08:38 CPAP BIPAP Do you snore loudly (louder No 10/10/25 08:38 than talking or can be heard Do you often feel tired/ No 10/10/25 08:38 fatigued/ sleepy during daytime? Has anyone observed you stop No 10/10/25 08:38 breathing during sleep? STOP Results Negative 10/10/25 08:38 QUESTION #5 FULL TEXT : Do you snore loudly (louder than talking or can be heard through closed doors)? Tobacco Use History Tobacco Use History - administrative volunteer: Tobacco Use History - administrative volunteer Tobacco Use Smoking Status Never smoker 10/10/25 08:38 Hx Tobacco Use No 10/10/25 08:38 Years Smoking Packs Smoked per Day Smoking Cessation Date was within the last 15 years Hx Smoking Cessation Date Hx Smoking Cessation Counseling Hematologic Medial History Hematologic Hx - administrative volunteer: Hematologic Medical Hx - river tester Hx of Blood Transfusion No 10/10/25 08:38 Hx of Transfusion in last 3 No 10/10/25 08:38 Months Date of Last Transfusion (if within last 3 months) Ever experience any problems No 10/10/25 08:38 with transfusion(s)? Specify any problems Hx of Preganancy in last 3 N/A 10/10/25 08:38 Months Nurse Filling Out Transfusion VCHRISTIN 10/10/25 08:38 & Questions: Date: 10/10/25 10/10/25 08:38 Time: 08:39 10/10/25 08:38 Patient unable to answer at this time (ie. confused, unrespo /Reproduction History /Reproductive History - administrative volunteer: /Reproductive Hx- administrative volunteer Hx Now No 10/10/25 08:38 Gestational Age (in weeks): EDC: Hx Hx Para Hx Section SAB No 10/10/25 08:38 Does the father of the baby or his family experience fever w Father of the baby Malignant Hypertension history comment Active Medications Active Medications: Current Medications Generic Name Dose Route Start Last Admin Trade Name Freq PRN Reason Stop Dose Admin Lactated Ringer's 1,000 mls @ 15 mls/hr 10/14/25 12:30 10/14/25 12:38 IV 15 mls/hr .Q48H LUCIAN Administration PFSH Medical History Cancer History of steroid therapy Back pain Non-smoker Left lateral epicondylitis Chronic neck and back pain Diabetes Metabolic disorder Home Medications ?Medication ?Instructions ?Recorded ?Last Taken ?Type lisinopril 2.5 mg tablet 1 tab PO DAILY 09/29/19 10/13/25 History metformin 500 mg tablet,extended See Rx Instructions PO DAILY 02/05/20 10/14/25 History release 24 hr atorvastatin 80 mg tablet 80 mg PO DAILY 07/23/21 10/13/25 History dapagliflozin propanediol 10 mg 10 mg PO DAILY 10/10/25 10/09/25 History tablet (Farxiga) Allergy/AdvReac Type Severity Reaction Status Date / Time No Known Allergies Allergy Verified 10/14/25 12:30 Family History Mother Heart disease Myocardial infarction Father Diabetes Surgical History History of kidney surgery H/O hernia repair H/O adenoidectomy History of tonsillectomy Social History household members: none Smoking Status: Never smoker alcohol intake: current alcohol intake frequency: a few times a month substance use type: does not use what type of physical activity do you participate in: walking and bicycling frequency: 5-6 times per week Review of Systems (Anesthesia) ROS Narrative System reviewed and no additional complaints, except as documented.
--- NOTE | 2025-10-14 12:50 | RAD_ITS ---
PROCEDURE: FLUOR GUIDANCE FOR SPINE INJ 10/14/2025 REASON FOR EXAM: CAUDAL BLOCK TECHNIQUE: Procedure Code: RADSPN Modality: DX Procedure: FLUOR GUIDANCE FOR SPINE INJ. Fluoroscopy: 5.8 seconds. Radiation dose: 4.28 mGy. 2 images were submitted. COMPARISON: None FINDINGS: Fluoroscopic services provided for caudal block. RAD/Fluor Guidance for Spine Inj IMPRESSION: Fluoroscopic services provided for caudal block. Reading Location: [facility]
[2025-10-14] MEDS: Lidocaine 1% (5 ml sdv) 5 ML Vial (13:12)
--- NOTE | 2025-10-14 13:18 | OP.PCM_ITS ---
Operative Report (Standard) Operative Information Date of Procedure: 10/14/25 Pre-Operative Diagnosis: lumbosacral radiculopathy, lumbosacral degenerative disc disease, lumbosacral spinal stenosis Post-Operative Diagnosis: lumbosacral radiculopathy, lumbosacral degenerative disc disease, lumbosacral spinal stenosis Surgery/Procedure Performed: Diagnostic/therapeutic caudal epidural steroid injection under fluoroscopic guidance mill supervisor: No Type of Anesthesia: Local MAC RN Documented Start/Stop Times: Operation Date: 10/14/25 13:50 Case Time Into Pre-Op 10/14/25 12:17 Anesthesia Start 10/14/25 13:03 Into Room 10/14/25 13:03 Procedure Start 10/14/25 13:06 Into Recovery 10/14/25 13:15 Procedure Start Time: 13:18 Procedure Stop Time: 13:18 Select all DRAINS/GRAFTS/IMPLANTS that apply: None Estimated Blood Loss: 0 Specimen collected: No Description of surgery: PROCEDURE PERFORMED: Caudal epidural steroid injection. ANESTHESIA: MAC. BLOOD LOSS: Minimal. COMPLICATIONS: None. DESCRIPTION OF PROCEDURE: History and physical of today was reviewed. Risks and benefits of the procedure were explained. The patient understood and agreed to proceed. Informed consent was obtained. IV inserted per routine protocol. The patient was taken to the operating room and placed in the prone position with a pillow positioned underneath the abdomen. The lower back and tailbone area was prepped and draped in a sterile fashion using iodine x3. Under fluoroscopy guidance on a lateral view, the caudal space was identified. The skin and subcutaneous tissue was anesthetized with approximately 3 mL of 1% lidocaine using a 25-gauge regular needle. Under direct visualization with fluoroscopy, using a 22-gauge 3-1/2-inch spinal needle, the needle was advanced via the skin through the sacral hiatus. The tip of the needle was passed through the sacrococcygeal ligament and advanced to approximately S4 area. After negative aspiration of blood or CSF, a total of 3 mL of contrast was injected to confirm correct placement of the needle as well as cephalad spread. The spread was followed to approximately L5 area. After confirmation on AP as well as lateral view and repeated negative aspiration, a total of 15 mL of preservative-free 0.125% Marcaine with 80 mg of Depo-Medrol was injected easily. The needle was then removed intact. The patient experienced no sign or symptoms of intrathecal or intravascular injection. The patient experienced no paresthesia. The procedure was completed without any apparent difficulty or any complications. The patient appeared to tolerate it well. ASSESSMENT AND PLAN: This is a 60-year-old male with lumbosacral radiculopathy, lumbosacral degenerative disc disease, lumbosacral spinal stenosis, status post diagnostic/therapeutic caudal epidural steroid injection under fluoroscopic guidance, patient will continue his current medications, patient will follow-up in approximately 2 weeks for reevaluation. Surgical Findings: 0 Complications Complications: No Admit VTE Documentation VTE Present on Admission: No VTE Mechan Device Prophylaxis: None VTE Pharm Prophylaxis ordered?: No
--- NOTE | 2025-10-14 13:35 | PCM.POST.ANE ---
Anesthesia: Postop Eval I Current Vital Signs Temperature: 97.5 F Pulse Rate: 59 Blood Pressure: 102/67 Respiratory Rate: 16 Pulse Ox: 95 Assessment Airway patent: Yes Spontaneous unlabored respirations: Yes nausea: No Vomiting: No Anesthesia Complication: No Fluid Hydration Crystalloid volume administer (ml): 200 Total IV fluid infused: 200 Progress Note Anesthesia document: Postop Eval 1 completed: Yes
--- NOTE | 2025-10-14 14:56 | POSTOPAN2_ITS ---
Anesthesia Postop Eval I Sum Postop Eval Completion status Anesthesia document: Postop Eval 1 completed: Yes Anesthesia Postop Eval I Summary Anesthesia Postop Eval I Summary: Anesthesia Postop Eval I: Assessment Summary Airway patent Yes 10/14/25 13:35 MACHINE WOODWORKING [email or web address].[email or web address] Spontaneous unlabored Yes 10/14/25 13:35 MACHINE WOODWORKING [email or web address].[email or web address] respirations Mental status nausea No 10/14/25 13:35 MACHINE WOODWORKING SANDER.[email or web address] Vomiting No 10/14/25 13:35 MACHINE WOODWORKING [email or web address].[email or web address] Anesthesia Postop Eval I: Fluid Summary Crystalloid volume administer 200 10/14/25 13:35 MACHINE WOODWORKING SANDER.TNES (ml) Colloids volume administered ( ml) Blood Product volume administered (ml) Total IV fluid infused 200 10/14/25 13:35 MACHINE WOODWORKING [email or web address].[email or web address] Anesthesia Postop Eval I: Summary Notes Anesthesia Complication No 10/14/25 13:35 MACHINE WOODWORKING SANDER.TNES Anesthesia Complication Comment: Post-operative progress note Anesthesia: Postop Eval II Evaluation Mental status: Awake and Calm Pain Level: 0 nausea: No Vomiting: No Complications Anesthesia Complication: No
--- NOTE | 2025-10-14 14:56 | PCM.POSTANE2 ---
Anesthesia Postop Eval I Sum Postop Eval Completion status Anesthesia document: Postop Eval 1 completed: Yes Anesthesia Postop Eval I Summary Anesthesia Postop Eval I Summary: Anesthesia Postop Eval I: Assessment Summary Airway patent Yes 10/14/25 13:35 SHINGLE SHEARING MACHINE OPERATOR.[email or web address] Spontaneous unlabored Yes 10/14/25 13:35 SHINGLE SHEARING MACHINE OPERATOR.TNES respirations Mental status nausea No 10/14/25 13:35 SHINGLE SHEARING MACHINE OPERATOR.TNES Vomiting No 10/14/25 13:35 SHINGLE SHEARING MACHINE OPERATOR.TNES Anesthesia Postop Eval I: Fluid Summary Crystalloid volume administer 200 10/14/25 13:35 SHINGLE SHEARING MACHINE OPERATOR.TNES (ml) Colloids volume administered ( ml) Blood Product volume administered (ml) Total IV fluid infused 200 10/14/25 13:35 SHINGLE SHEARING MACHINE OPERATOR.TNES Anesthesia Postop Eval I: Summary Notes Anesthesia Complication No 10/14/25 13:35 SHINGLE SHEARING MACHINE OPERATOR.TNES Anesthesia Complication Comment: Post-operative progress note Anesthesia: Postop Eval II Evaluation Mental status: Awake and Calm Pain Level: 0 nausea: No Vomiting: No Complications Anesthesia Complication: No
--- OUTSIDE RECORDS SUMMARY | 2025-10-14 18:37 | XMS RPT_ITS | CCD ---
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 contrast administration guidelines link. - docusate sodium (COLACE) 100 mg capsule Take 1 capsule by mouth twice daily as needed for constipation. - oxyCODONE-acetaminophen (PERCOCET) 5-325 mg tablet Take 1 tablet by mouth every 6 hours as needed for pain. - sildenafil (VIAGRA) 100 mg tablet TAKE 1 TABLET BY MOUTH ONCE DAILY NEEDED (1 HOUR BEFORE SEXUAL ACTIVITY) - metformin HCl (METFORMIN ORAL) Take 1,000 mg by mouth twice daily. - lisinopril 2.5 mg tablet Take 2.5 mg by mouth once daily. - atorvastatin (LIPITOR) 80 mg tablet Take 80 mg by mouth daily at bedtime. - pioglitazone (ACTOS) 15 mg tablet Take 45 mg by mouth once daily. - aspirin, enteric coated (ASPIRIN, ENTERIC COATED) 81 mg EC tablet Take 1 tablet by mouth once daily. - ai-GP-BQ-Vd-Ycm-Zaujdqt -Lutein (CENTRUM) 0.4-162-18 mg tab Take by mouth once daily. Problem List As Of Date 02/18/2025 Noted Resolved Dysmetabolic syndrome X [E88.810] 12/22/2011 Mixed hyperlipidemia [E78.2] 12/22/2011 Type 2 diabetes mellitus (HCC) [E11.9] 12/02/2022 Controlled type 2 diabetes mellitus without com*12/02/2022 Primary hypertension [I10] 12/02/2022 Right renal mass [N28.89] 12/30/2022 Encounter Status:Closed by KHANH ROCK on 02/18/25 [facility] UA DIP, URINE (POC)on 2023 BILIRUBIN UA (POCT) Negative Negative [facility] CLARITY UA (POCT) Clear [facility] COLOR UA (POCT) Yellow [facility] GLUCOSE UA (POCT) 100 mg/dL Abnormal Negative mg/dL [facility] Hemoglobin Ql (U) Negative Negative [facility] KETONE UA (POCT) Negative Negative mg/dL [facility] LEUKOCYTES UA (POCT) Negative Negative [facility] NITRITE UA (POCT) Negative Negative [facility] PH UA (POCT) 6.5 4.5 - 8.0 [facility] Protein Ql (U) Negative Negative mg/dL [facility] SPECIFIC GRAVITY UA (POCT) 1.020 1.005 - 1.030 [facility] UROBILINOGEN UA (POCT) 0.2 E.U./dL Normal E.U./dL [facility] .GFRon 10-25-2023 GFR 75 ml/min/1.73sqm Normal [facility] ([place]) Comment on above: Result Comment: GFR Population mean for , Non- Americans Ages 20-29 = 116 mL/min/1.73 sq.m. Ages 30-39 = 107 mL/min/1.73 sq.m. Ages 40-49 = 99 mL/min/1.73 sq.m. Ages 50-59 = 93 mL/min/1.73 sq.m. Ages 60-69 = 85 mL/min/1.73 sq.m. Ages 70+ = 75 mL/min/1.73 sq.m. Chronic Kidney Disease: Less than 60 mL/min/1.73 square meters End Stage Renal Disease: Less than 15 mL/min/1.73 square meters Performed By: #### P SA, LIPID, GFR, CMP #### [address] [address] GFR Non- 62 ml/min/1.73sqm Normal [facility] ([place]) Comment on above: Result Comment: GFR Population mean for , Non- Americans Ages 20-29 = 116 mL/min/1.73 sq.m. Ages 30-39 = 107 mL/min/1.73 sq.m. Ages 40-49 = 99 mL/min/1.73 sq.m. Ages 50-59 = 93 mL/min/1.73 sq.m. Ages 60-69 = 85 mL/min/1.73 sq.m. Ages 70+ = 75 mL/min/1.73 sq.m. Chronic Kidney Disease: Less than 60 mL/min/1.73 square meters End Stage Renal Disease: Less than 15 mL/min/1.73 square meters Performed By: #### P SA, LIPID, GFR, CMP #### [address] [address] CMPon 10-25-2023 Albumin Level 4.2 G/dL Normal 3.5-5.0 [facility] ([place]) Comment on above: Performed By: #### P SA, LIPID, GFR, CMP #### [address] [address] Albumin/Globulin [Mass ratio] 1.4 {ratio} Normal 1.1-2.5 [facility] ([place]) Comment on above: Performed By: #### P SA, LIPID, GFR, CMP #### [address] [address] ALP [Catalytic activity/Vol] 84 U/L Normal 40-135 [facility] ([place]) Comment on above: Performed By: #### P SA, LIPID, GFR, CMP #### [address] [address] ALT [Catalytic activity/Vol] 41 U/L Normal 16-63 [facility] ([place]) Comment on above: Performed By: #### P SA, LIPID, GFR, CMP #### [address] [address] AST [Catalytic activity/Vol] 18 U/L Normal 10-40 [facility] ([place] Comment on above: Performed By: #### P SA, LIPID, GFR, CMP #### [address] [address] Bili Total 1.2 mg/dL High 0.2-1.0 [facility] ([place]) Comment on above: Result Comment: Use of this assay is not recommended for patients undergoing treatment with eltrombopag due to the potential for falsely elevated results. Performed By: #### P SA, LIPID, GFR, CMP #### [address] [address] BUN/Creatinine Ratio 17 ratio Normal 7-27 [facility] ([place]) Comment on above: Performed By: #### P SA, LIPID, GFR, CMP #### [address] [address] Calcium [Mass/Vol] 9.8 mg/dL Normal 8.4-10.2 [facility] ([place]) Comment on above: Performed By: #### P SA, LIPID, GFR, CMP #### [address] [address] Chloride [Moles/Vol] 99 mmol/L Normal 98-107 [facility] ([place]) Comment on above: Performed By: #### P SA, LIPID, GFR, CMP #### [address] [address] CO2 [Moles/Vol] 30 mmol/L High 22-29 [facility] ([place]) Comment on above: Performed By: #### P SA, LIPID, GFR, CMP #### [address] [address] Creatinine [Mass/Vol] 1.21 mg/dL Normal 0.70-1.30 [facility] ([place]) Comment on above: Performed By: #### P SA, LIPID, GFR, CMP #### [address] [address] Electrolyte Balance 8.0 mEq/L Normal 4.0-15.0 [facility] ([place]) Comment on above: Performed By: #### P SA, LIPID, GFR, CMP #### [address] [address] Globulin 2.9 G/dL Normal [facility] ([place]) Comment on above: Performed By: #### P SA, LIPID, GFR, CMP #### [address] [address] Glucose [Mass/Vol] 130 mg/dL High 70-105 [facility] ([place]) Comment on above: Performed By: #### P SA, LIPID, GFR, CMP #### [address] [address] Potassium [Moles/Vol] 4.4 mmol/L Normal 3.5-5.1 [facility] ([place]) Comment on above: Performed By: #### P SA, LIPID, GFR, CMP #### [address] [address] Sodium [Moles/Vol] 137 mmol/L Normal 136-145 [facility] ([place]) Comment on above: Performed By: #### P SA, LIPID, GFR, CMP #### [address] [address] Total Protein 7.1 G/dL Normal 6.4-8.2 [facility] ([place]) Comment on above: Performed By: #### P SA, LIPID, GFR, CMP #### [address] [address] Urea nitrogen [Mass/Vol] 20 mg/dL High 7-18 [facility] ([place] Comment on above: Performed By: #### P SA, LIPID, GFR, CMP #### [id number] [place], [place] [address] LABORATORYOrdered By: SYSTEM SYSTEM on 10-25-2023 Albumin BCP dye [Mass/Vol] 4.2 G/dL Normal 3.5 - 5.0 G/dL AO ADM SS Albumin/Globulin [Mass ratio] 1.4 {ratio} Normal 1.1 - 2.5 ratio AO ADM SS ALP [Catalytic activity/Vol] 84 U/L Normal 40 - 135 U/L AO ADM SS ALT With P-5'-P [Catalytic activity/Vol] 41 U/L Normal 16 - 63 U/L AO ADM SS AST With P-5'-P [Catalytic activity/Vol] 18 U/L Normal 10 - 40 U/L AO ADM SS Bilirubin [Mass/Vol] 1.2 mg/dL High 0.2 - 1 .0 mg/dL AO ADM SS Comment on above: Interpretive Data: U se of this assay is not recommended for patients undergoing treatment with eltrombopag due to the potential for falsely elevated results. Calcium [Mass/Vol] 9.8 mg/dL Normal 8.4 - 10. 2 mg/dL AO ADM SS Chloride [Moles/Vol] 99 mmol/L Normal 98 - 10 7 mmol/L AO ADM SS CO2 [Moles/Vol] 30 mmol/L High 22 - 29 mmol/L AO ADM SS Creatinine [Mass/Vol] 1.21 mg/dL Normal 0.70 - 1.30 mg/dL AO ADM SS Electrolyte Balance 8.0 mEq/L Normal 4.0 - 15 .0 mEq/L AO ADM SS GFR/1.73 sq M.predicted among blacks MDRD (S/P/Bld) [Vol rate/Area] 75 ml/min/1.73sqm Invalid Interpretation Code AO Chemistry S Comment on above: Interpretive Data: GFR Population mean for , Non- Americans Ages 20-29 = 116 mL/min/1.73 sq.m. Ages 30-39 = 107 mL/min/1.73 sq.m. Ages 40-49 = 99 mL/min/1.73 sq.m. Ages 50-59 = 93 mL/min/1.73 sq.m. Ages 60-69 = 85 mL/min/1.73 sq.m. Ages 70+ = 75 mL/min/1.73 sq.m. Chronic Kidney Disease: Less than 60 mL/min/1.73 square meters End Stage Renal Disease: Less than 15 mL/min/1.73 square meters GFR/1.73 sq M.predicted among non-blacks MDRD (S/P/Bld) [Vol rate/Area] 62 ml/min/1.73sqm Invalid Interpretation Code AO Chemistry S Comment on above: Interpretive Data: GFR Population mean for , Non- Americans Ages 20-29 = 116 mL/min/1.73 sq.m. Ages 30-39 = 107 mL/min/1.73 sq.m. Ages 40-49 = 99 mL/min/1.73 sq.m. Ages 50-59 = 93 mL/min/1.73 sq.m. Ages 60-69 = 85 mL/min/1.73 sq.m. Ages 70+ = 75 mL/min/1.73 sq.m. Chronic Kidney Disease: Less than 60 mL/min/1.73 square meters End Stage Renal Disease: Less than 15 mL/min/1.73 square meters Globulin 2.9 G/dL Invalid Interpretation Code AO ADM SS Glucose [Mass/Vol] 130 mg/dL High 70 - 105 mg/dL AO ADM SS Potassium [Moles/Vol] 4.4 mmol/L Normal 3.5 - 5.1 mmol/L AO ADM SS Prostate specific Ag [Mass/Vol] 1.78 ng/mL Normal 0.00 - 4.00 ng/mL AO ADM SS Protein [Mass/Vol] 7.1 G/dL Normal 6.4 - 8.2 G/dL AO ADM SS Sodium [Moles/Vol] 137 mmol/L Normal 136 - 145 mmol/L AO ADM SS Urea nitrogen [Mass/Vol] 20 mg/dL High 7 - 18 mg/dL AO ADM SS Urea nitrogen/Creatinine [Mass ratio] 17 ratio Normal 7 - 27 ratio AO ADM SS LABORATORYOrdered By: Phillip Ponce on 10-25-2023 Cholesterol [Mass/Vol] 275 mg/dL High 0 - 200 mg/dL AO ADM SS Comment on above: Interpretive Data: C holesterol Reference Interval: Less than 200 Desirable 200-239 Borderline high risk 240 and above High risk Cholesterol in HDL [Mass/Vol] 47 mg/dL Normal 40 - 60 mg/dL AO ADM SS Cholesterol in LDL [Mass/Vol] 177 mg/dL High 0 - 130 mg/dL AO ADM SS Triglyceride [Mass/Vol] 254 mg/dL High 0 - 150 mg/dL AO ADM SS Comment on above: Interpretive Data: T riglyceride Reference Interval: Less than 150 Normal 150-199 Borderline high risk 200-499 High risk 500 or higher Very high risk LIPIDon 10-25-2023 Cholesterol [Mass/Vol] 275 mg/dL High 0-200 [facility] ([place]) Comment on above: Result Comment: Chol esterol Reference Interval: Less than 200 Desirable 200-239 Borderline high risk 240 and above High risk Performed By: #### P SA, LIPID, GFR, CMP #### [address] [address] Cholesterol in HDL [Mass/Vol] 47 mg/dL Normal 40-60 [facility] ([place]) Comment on above: Performed By: #### P SA, LIPID, GFR, CMP #### [address] [address] Cholesterol in LDL [Mass/Vol] 177 mg/dL High 0-130 [facility] ([place]) Comment on above: Performed By: #### P SA, LIPID, GFR, CMP #### [address] [address] Triglyceride [Mass/Vol] 254 mg/dL High 0-150 [facility] ([place]) Comment on above: Result Comment: Trig lyceride Reference Interval: Less than 150 Normal 150-199 Borderline high risk 200-499 High risk 500 or higher Very high risk Performed By: #### P SA, LIPID, GFR, CMP #### [address] [address] PSAon 10-25-2023 Prostate Specific Antigen 1.78 ng/mL Normal 0.00-4.00 [facility] ([place]) Comment on above: Performed By: #### P SA, LIPID, GFR, CMP #### Melony [address] [address] CNCOon 08-02-2023 CNCO Letter Text Normal [facility] CNOVon 08-02-2023 CNOV Office Visit (KRISS ) BRET CINTRON ([id number]) 1965 M Date Time Provider Department 08/02/23 3:45 PM PADMA MEDEIROS During your visit today, we recorded the following information about you: Blood pressure Weight Height 124/76 93.4 kg 1.803 m Padma Medeiros MD 08/02/2023 4:06 PM Signed [facility] UROLOGY ESTABLISHED PATIENT FOLLOW-UP NOTE PATIENT: Bret S Saida (58 year old) PCP: Keiry Wayne, DO SUMMARY: 1. Renal cell carcinoma of right kidney. 12/30/22 - R-RPN. Final path - [id number] G3 ccRCC. Intermediate risk. 2. Pulmonary nodule. 2-mm left lung nodule, present at diagnosis, stable on CT-07/2023. ASSESSMENT: 1. History of kidney cancer - ICD9: V10.52, ICD10: Z85.528 (primary diagnosis) 2. Malignant neoplasm of right kidney, except renal pelvis (HCC) - ICD9: 189.0, ICD10: C64.1 3. Lung nodules - ICD9: 793.19, ICD10: R91.8 PLAN: #1 Chronic, stable. CT chest and kidney results reviewed. There is no evidence of disease recurrence or metastasis. The previously seen lung nodule is stable. Continue surveillance. Follow up in [address] chest and renal. If the lung nodule is stable, then chest imaging can be switched to chest x-ray. FOLLOW UP: Return in about 6 months (around 02/01/2024) for CT scans and Creatinine. CHIEF COMPLAINT: Patient presents with: Follow Up: Renal cell carcinoma of right kidney (HCC HISTORY OF PRESENT ILLNESS: Prior notes were reviewed. The patient reports doing well. CHUCKY/AUASS FORMS No question data found. REVIEW OF SYSTEMS: Not applicable ALLERGIES: ALLERGIES No Known Allergies MEDICATIONS: iv contrast (will be provided with radiology test) CT kidney wow Inject, intravenously, once for 1 dose.No IV access, insert saline lock prior to the beginning of sedation, infusion, injection of imaging exam. Discontinue saline lock post exam. If Pt. has a central line or IVAD, may access for administration according to line specific nursing protocol. Once exam is complete flush line and de-access according to line specific nursing protocol in the CT contrast administration guidelines link. iv contrast (will be provided with radiology test) CT Chest W -Inject, intravenously, once for 1 dose.No IV access, insert saline lock prior to the beginning of sedation, infusion, injection of imaging exam. Discontinue saline lock post exam. If Pt. has a central line or IVAD, may access for administration according to line specific nursing protocol. Once exam is complete flush line and de-access according to line specific nursing protocol in the CT contrast administration guidelines link. docusate sodium (COLACE) 100 mg capsule Take 1 capsule by mouth twice daily as needed for constipation. oxyCODONE-acetaminophen (PERCOCET) 5-325 mg tablet Take 1 tablet by mouth every 6 hours as needed for pain. sildenafil (VIAGRA) 100 mg tablet TAKE 1 TABLET BY MOUTH ONCE DAILY NEEDED (1 HOUR BEFORE SEXUAL ACTIVITY) metformin HCl (METFORMIN ORAL) Take 1,000 mg by mouth twice daily. lisinopril 2.5 mg tablet Take 2.5 mg by mouth once daily. atorvastatin (LIPITOR) 80 mg tablet Take 80 mg by mouth daily at bedtime. pioglitazone (ACTOS) 15 mg tablet Take 45 mg by mouth once daily. aspirin, enteric coated (ASPIRIN, ENTERIC COATED) 81 mg EC tablet Take 1 tablet by mouth once daily. dn-FO-NZ-Ub-Ods-Ezyfkss -Lutein (CENTRUM) 0.4-162-18 mg tab Take by mouth once daily. PAST HISTORY: PAST MEDICAL HISTORY Diagnosis Date CKD (chronic kidney disease) stage 2, GFR 60-89 ml/min Diabetes mellitus (HCC) Pure hypercholesterolemia Renal mass PAST SURGICAL HISTORY Procedure Laterality Date PAST SURGICAL HISTORY OF umbilical hernia repair as a baby TONSILLECTOMY AND ADENOIDECTOMY as a child FAMILY HISTORY Problem Relation Age of Onset other ([place] and age 60) Mother other (diabetes and [place] age 60) Father Social History Tobacco Use Smoking status: Never Smokeless tobacco: Never Vaping Use Vaping Use: Never used Substance Use Topics Alcohol use: Yes Comment: occassionally Drug use: Not Currently PHYSICAL EXAMINATION: BP 124/76 Ht 180.3 cm (5' 11) Wt 93.4 kg (206 lb) BMI 28.73 kg/m? Genitourinary: (1) Rectal: . (2) CVA: . (3) Genital: . (4) Gonads: . (5) Other: . Constitutional: In no acute distress. Well appearing. Respiratory: Normal respiratory effort without use of accessory muscles. Musculoskeletal: Normal gait and station Cardiovascular: Gastrointestinal: DATA: Clinic: URINALYSIS: N/a Laboratory: (more content not included)... Normal [facility] CNOVon 01-18-2023 CNOV Office Visit (AKURFL ) BRET CINTRON ([id number]) 1965 M Date Time Provider Department 01/18/23 3:45 PM PADMA MEDEIROS During your visit today, we recorded the following information about you: Blood pressure Weight Height 148/76 93.4 kg 1.803 m Padma Medeiros MD 01/18/2023 4:14 PM Signed REASON FOR VISIT: Post-operative visit IMPRESSION: Bret Cintron is a 57 year old male s/p Robotic-assisted laparoscopic right partial nephrectomy; intraoperative renal ultrasound for tumor identification on 12/30/22. 1. Renal cell carcinoma of right kidney (HCC) - ICD9: 189.0, ICD10: C64.1 (primary diagnosis). 12/30/22 - R-RPN. Final path - [id number] G3 ccRCC. Intermediate risk. 2. Pulmonary nodule - ICD9: 793.11, ICD10: R91.1 3. Malignant neoplasm of right kidney, except renal pelvis (HCC) - ICD9: 189.0, ICD10: C64.1. PLAN: 1) Doing well. Pathology results reviewed; significance discussed. Proceed with surveillance. Activity restrictions until 01/30/23. Follow up in [address] renal wwo contrast, CT chest (due to pulmonary nodule on preop CT), and sCr. 2) Obtain CT chest to monitor pulmonary nodule. HPI: The patient presents for postoperative follow up. He is doing well. Pain is minimal. PATHOLOGY: FINAL DIAGNOSIS A. 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 Diagnosis Comment This case has been reviewed by Dr. Pamella Cotton, who concurs with the above findings. Synoptic Report KIDNEY: Nephrectomy 8th Edition - Protocol posted: 04/29/2021 KIDNEY: RESECTION - A SPECIMEN Procedure Partial nephrectomy Specimen Laterality Right TUMOR Tumor Focality Unifocal Tumor Site Not specified Tumor Size Greatest Dimension (Centimeters): 3.0 cm Additional Dimension (Centimeters) 2.8 cm 2 cm Histologic Type Clear cell renal cell carcinoma Histologic Grade (WHO / ISUP) G3 (nucleoli conspicuous and eosinophilic at 100x magnification) Tumor Extent Limited to kidney Sarcomatoid Features Not identified Rhabdoid Features Not identified Tumor Necrosis Not identified Lymphovascular Invasion Not identified MARGINS Margin Status All margins negative for invasive carcinoma REGIONAL LYMPH NODES Regional Lymph Node Status Not applicable (no regional lymph nodes submitted or found) PATHOLOGIC STAGE CLASSIFICATION (pTNM, AJCC 8th Edition) Reporting of pT, pN, and (when applicable) pM categories is based on information available to the pathologist at the time the report is issued. As per the AJCC (Chapter 1, 8th Ed.) it is the managing physician?s responsibility to establish the final pathologic stage based upon all pertinent information, including but potentially not limited to this pathology report. 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 LABS: Hemoglobin Date Value Ref Range Status 01/12/2023 15.6 13.0 - 17.0 g/dL Final 12/31/2022 13.6 13.0 - 17.0 g/dL Final Hematocrit Date Value Ref Range Status 01/12/2023 46.2 39.0 - 51.0 % Final 12/31/2022 41.3 39.0 - 51.0 % Final Creatinine Date Value Ref Range Status 01/12/2023 1.22 0.73 - 1.22 mg/dL Final 12/31/2022 1.33 (H) 0.73 - 1.22 mg/dL Final 12/16/2022 0.95 0.73 - 1.22 mg/dL Final No results found for: PSA URINALYSIS: No results found for: PH, SPGR, UGLUC, UBILI, UKET, UHB, UPROT, UROBIL, NITRITES, UWBC, SSA IMAGING: N/a PHYSICAL EXAMINATION BP 148/76 Ht 180.3 cm (5' 11) Wt 93.4 kg (206 lb) BMI 28.73 kg/m? General appearance: Well appearing, alert, in no acute distress, and well-hydrated, well nourished Abdomen: Abdomen soft, non-tender. Incision: c/d/i Genitourinary: n/a Padma Medeiros MD Referring Provider: PADMA MEDEIROS [[id number]] Allergies As of Date: 01/18/2023 (No Known Allergies) Date Reviewed: 01/18/2023 Reviewed by: Padma Medeiros MD - Fully Assessed Reason for Visit: Follow Up [171] Cmt: Renal mass Primary Visit Diagnosis:Renal cell carcinoma of right kidney (HCC) [C64.1] Other Visit Diagnoses:Pulmonary nodule [R91.1] Malignant neoplasm of right kidney, except renal pelvis (HCC) [C64.1] Lung nodules [R91.8] Order(s):CT KIDNEY WO/W IVCON [[id number]] Order #: [id number] FUTURE iv contrast (will be provided with radiology test)CT kidney wow Inject, intravenously, once for 1 dose.No IV access, insert saline lock prior to the beginning of sedation, infusion, injection of imaging exam. Discontinue saline lock post exam. If Pt. has a central line or IVAD (more content not included)... Normal [facility] CNPNon 01-05-2023 CNPN Telephone (AKURFL) BRET CINTRON ([id number]) 1965 M Date Time Provider Department 01/05/23 PADMA MEDEIROS During your visit today, we recorded the following information about you: Arminda Byers MA 01/05/2023 1:51 PM Signed Patient called stating that he is having some issues with the site of his surgery incision. He stated that he is having bloating and cramping in the lower right abdomin area. He feels like he needs to have a BM or to pass gas, however he is not having any trouble doing either. He is feeling nauseous, becomes hot and then cold. He says that he does not feel as if he has a fever and no other signs of infection. Patient would like to know if there is something that can be can or given to help? Please advise. JOI Magaña MD 01/05/2023 2:50 PM Signed Bowel symptoms are usually uncommon after kidney surgery. Constipation due to narcotic pain medications is the most common side effect. I have sent a script for simethicone (gas-ex) to his pharmacy to help with the gas and bloating feeling. I recommend sticking with a more bland diet. I encourage him to wean off narcotic pain medications if he hasn't already. If he is already off narcotic pain medications and having a daily bowel movement, then he can stop Colace as well. If he develops worsening pain, nausea/vomiting, fevers/chills, then he should go to the ER. Thanks Padma Medeiros MD 01/05/2023 2:50 PM Signed Addended by: PADMA MEDEIROS on: 01/05/2023 02:50 PM Modules accepted: Orders Arminda Byers MA 01/06/2023 11:56 AM Signed Passed along message. Patient says that he is feeling much better today after taking the gas-ex medication. Arminda Byers MA Allergies As of Date: 01/05/2023 (No Known Allergies) Date Reviewed: 12/30/2022 Reviewed by: Amanda Haji RN - Fully Assessed Reason for Visit: Patient Update [1234] Patient Question [1477] Primary Visit Diagnosis:Bloating [R14.0] Order(s):simethicone, chewable (MYLICON) 80 mg chewable tabletTake 1 tablet by mouth every 6 hours as needed (gas and bloating) for up to 7 days.Disp: 28 tabletRfl: 0 Prescriptions as of 01/06/2023 - simethicone, chewable (MYLICON) 80 mg chewable tablet Take 1 tablet by mouth every 6 hours as needed (gas and bloating) for up to 7 days. - docusate sodium (COLACE) 100 mg capsule Take 1 capsule by mouth twice daily as needed for constipation. - oxyCODONE-acetaminophen (PERCOCET) 5-325 mg tablet Take 1 tablet by mouth every 6 hours as needed for pain. - sildenafil (VIAGRA) 100 mg tablet TAKE 1 TABLET BY MOUTH ONCE DAILY NEEDED (1 HOUR BEFORE SEXUAL ACTIVITY) - metformin HCl (METFORMIN ORAL) Take 1,000 mg by mouth twice daily. - lisinopril 2.5 mg tablet Take 2.5 mg by mouth once daily. - atorvastatin (LIPITOR) 80 mg tablet Take 80 mg by mouth daily at bedtime. - pioglitazone (ACTOS) 15 mg tablet Take 45 mg by mouth once daily. - aspirin, enteric coated (ASPIRIN, ENTERIC COATED) 81 mg EC tablet Take 1 tablet by mouth once daily. - gi-QW-SR-Qj-Nzx-Iakyhhz -Lutein (CENTRUM) 0.4-162-18 mg tab Take by mouth once daily. Problem List As Of Date 01/05/2023 Noted Resolved Dysmetabolic syndrome X [E88.81] 12/22/2011 Mixed hyperlipidemia [E78.2] 12/22/2011 Type 2 diabetes mellitus (HCC) [E11.9] 12/02/2022 Controlled type 2 diabetes mellitus without com*12/02/2022 Primary hypertension [I10] 12/02/2022 Right renal mass [N28.89] 12/30/2022 Prescriptions ordered this encounter Disp Refills Start End SIMETHICONE 80 MG CHEWABLE TABLET 28 t* 0 01/05/2023 01/12/2023 Route: ORAL Sig: Take 1 tablet by mouth every 6 hours as needed (gas and bloating) for up to 7 days. Encounter Status:Closed by ARMINDA BYERS on 01/05/23 [facility] ANES POSTPROC EVALon 023 ANES POSTPROC EVAL HNO ID: [id number] Author: Bishop Monsivais MD Service: Anesthesiology Author Type: Physician Type: Anesthesia Postprocedure Evaluation Filed: 12/31/2022 7:29 AM Note Text: POST ANESTHESIA EVALUATION NOTE : 1965 Procedure Summary Date: 12/30/22 Room / Location: [place] OR 04 / [place] Anesthesia Start: 1210 Anesthesia Stop: 1737 Procedures: XI ROBOTIC LAPAROSCOPIC NEPHRECTOMY PARTIAL (Right: Kidney) DANNY INTRAOPERATIVE ULTRASOUND GUIDANCE Diagnosis: Renal mass, right (Renal mass, right [N28.89]) Surgeons: Padma Medeiros MD Responsible Provider: Bishop Monsivais MD Anesthesia Type: general ASA Status: 2 Anesthesia Type: general Airway Type: ETT Last Vitals Vitals Value Taken Time BP 118/60 12/30/221999 Temp 36.6 ?C (97.9 ?F) 12/30/221999 HR SpO2 82 12/30/222003 Resp 12 12/30/222003 SpO2 95 % 12/30/222003 Vitals shown include unvalidated device data. Post Anesthesia Patient Status Patient Evaluation: bedside. Neurological Status: aware and responsive. Pulmonary Status: breathing comfortably on supplemental oxygen Airway Control: returned to baseline unsupported. Cardiovascular Status: stable. Pain Management: clinically adequate Postoperative Hydration: acceptable. Intraoperative Events: no significant anesthesia events Post Operative Nausea/Vomiting Status: no significant post operative nausea or vomiting Recommendation: continue current plan of care. Anesthesia Observations No Documentation SIGNATURE: Bishop Monsivais MD PATIENT NAME: Bret Cintron DATE: December 31, 2022 TIME: 7:29 AM CSN: [id number] Normal [facility] Basic metabolic 2000 panelon 12-31-2022 Anion gap [Moles/Vol] 12 mmol/L Normal 9-18 [facility] Comment on above: Order Comment: Speci men Type: BLOOD SPECIMEN Ordering Facility: [facility] Address: [address] [place] [address] Performed By: #### 2 4321-2 #### [facility] CLIA [id number] [address] [place] [address] [place] Calcium [Mass/Vol] 8.4 mg/dL Low 8.5-10.2 [facility] Comment on above: Order Comment: Speci men Type: BLOOD SPECIMEN Ordering Facility: [facility] Address: [address] [place] [address] Performed By: #### 2 4321-2 #### [facility] CLIA [id number] 1 [place] [address] [place] Chloride [Moles/Vol] 100 mmol/L Normal 97-105 [facility] Comment on above: Order Comment: Speci men Type: BLOOD SPECIMEN Ordering Facility: [facility] Address: [address] [address] Performed By: #### 2 4321-2 #### [facility] CLIA [id number] [address] CO2 [Moles/Vol] 23 mmol/L Normal 22-30 [facility] Comment on above: Order Comment: Speci men Type: BLOOD SPECIMEN Ordering Facility: [facility] Address: [address] [place] [address] Performed By: #### 2 4321-2 #### [facility] CLIA [id number] [address] OF [facility] Creatinine [Mass/Vol] 1.33 mg/dL High 0.73-1.22 [facility] Comment on above: Order Comment: Speci men Type: BLOOD SPECIMEN Ordering Facility: [facility] Address: [address] [place] [address] Performed By: #### 2 4321-2 #### [facility] CLIA [id number] [address] ESTIMATED GLOMERULAR FILTRATION RATE 63 mL/min/1.73m??? Normal >=60 [facility] Comment on above: Order Comment: Speci men Type: BLOOD SPECIMEN Ordering Facility: [facility] Address: [address] [place] [address] Result Comment: Analilia mated Glomerular Filtration Rate (eGFR) is calculated using the 2020 CKD-EPI creatinine equation. This equation utilizes serum creatinine, sex, and age as parameters. The creatinine assay has traceable calibration to isotope dilution-mass spectrometry. Refer to KDIGO guidelines for clinical interpretation. In patients with unstable renal function, e.g. those with acute kidney injury, the eGFR may not accurately reflect actual GFR. Performed By: #### 2 4321-2 #### [facility] CLIA [id number] [address] OF [facility] Glucose [Mass/Vol] 141 mg/dL High 74-99 [facility] Comment on above: Order Comment: Speci men Type: BLOOD SPECIMEN Ordering Facility: [facility] Address: [address] [place] [address] Result Comment: The [place] Diabetes Association (ADA) provides guidance for cutoff values for fasting glucose and random glucose. The ADA defines fasting as no caloric intake for at least 8 hours. Fasting plasma glucose results between 100 to 125 mg/dL indicate increased risk for diabetes (prediabetes). Fasting plasma glucose results greater than or equal to 126 mg/dL meet the criteria for diagnosis of diabetes. In the absence of unequivocal hyperglycemia, results should be confirmed by repeat testing. In a patient with classic symptoms of hyperglycemia or hyperglycemic crisis, random plasma glucose results greater than or equal to 200 mg/dL meet the criteria for diagnosis of diabetes. Reference: Standards of Medical Care in Diabetes 2016, [place] [employer] Association. Diabetes Care. 2016.39(Suppl 1). Performed By: #### 2 4321-2 #### [facility] CLIA [id number] [address] [place] [address] [place] Potassium [Moles/Vol] 4.3 mmol/L Normal 3.7-5.1 [facility] Comment on above: Order Comment: Speci men Type: BLOOD SPECIMEN Ordering Facility: [facility] Address: [address] [place] [address] Performed By: #### 2 1-2 #### [facility] CLIA [id number] 1 [place] [address] [place] Sodium [Moles/Vol] 135 mmol/L Low 136-144 [facility] Comment on above: Order Comment: Speci men Type: BLOOD SPECIMEN Ordering Facility: [facility] Address: [address] [address] Performed By: #### 2 4321-2 #### [facility] CLIA [id number] 1 [place] [address] [place] Urea nitrogen [Mass/Vol] 19 mg/dL Normal 9-24 [facility] Comment on above: Order Comment: Fredyi men Type: BLOOD SPECIMEN Ordering Facility: [facility] Address: [address] [place] [address] Performed By: #### 2 4321-2 #### [facility] CLIA [id number] [address] CBC panel Auto (Bld)on 12-31 Erythrocyte distribution width (RBC) [Ratio] 13.2 % Normal 11.5-15.0 [facility] Comment on above: Order Comment: Speci men Type: BLOOD SPECIMEN Ordering Facility: [facility] Address: [address] [place] [address] Performed By: #### T SCR30 #### [facility] CLIA [id number] [address] Hematocrit (Bld) [Volume fraction] 41.3 % Normal 39.0-51.0 [facility] Comment on above: Order Comment: Speci men Type: BLOOD SPECIMEN Ordering Facility: [facility] Address: [address] [place] [address] Performed By: #### T SCR30 #### [facility] CLIA [id number] [address] Hemoglobin (Bld) [Mass/Vol] 13.6 g/dL Normal 13.0-17.0 [facility] Comment on above: Order Comment: Speci men Type: BLOOD SPECIMEN Ordering Facility: [facility] Address: [address] [place] [address] Performed By: #### T SCR30 #### [facility] CLIA [id number] [address] MCH (RBC) [Entitic mass] 32.6 pg Normal 26.0-34.0 [facility] Comment on above: Order Comment: Speci men Type: BLOOD SPECIMEN Ordering Facility: [facility] Address: [address] [place] [address] Performed By: #### T SCR30 #### [facility] CLIA [id number] [address] OF [facility] MCHC (RBC) [Mass/Vol] 32.9 g/dL Normal 30.5-36.0 [facility] Comment on above: Order Comment: Speci men Type: BLOOD SPECIMEN Ordering Facility: [facility] Address: [address] [address] Performed By: #### T SCR30 #### [facility] CLIA [id number] [address] MCV (RBC) [Entitic vol] 99.0 fL Normal 80.0-100.0 [facility] Comment on above: Order Comment: Speci men Type: BLOOD SPECIMEN Ordering Facility: [facility] Address: [address] [address] Performed By: #### T SCR30 #### [facility] CLIA [id number] [address] Nucleated RBC (Bld) [#/Vol] 10*3/uL Normal <0.01 [facility] Comment on above: Order Comment: Speci men Type: BLOOD SPECIMEN Ordering Facility: [facility] Address: [address] [address] Performed By: #### T SCR30 #### [facility] CLIA [id number] [address] Platelet mean volume (Bld) [Entitic vol] 9.7 fL Normal 9.0-12.7 [facility] Comment on above: Order Comment: Speci men Type: BLOOD SPECIMEN Ordering Facility: [facility] Address: [address] [address] Performed By: #### T SCR30 #### [facility] CLIA [id number] [address] Platelets (Bld) [#/Vol] 198 10*3/uL Normal 150-400 [facility] Comment on above: Order Comment: Speci men Type: BLOOD SPECIMEN Ordering Facility: [facility] Address: [address] [address] Performed By: #### T SCR30 #### [facility] CLIA [id number] [address] RBC (Bld) [#/Vol] 4.17 10*6/uL Low 4.20-6.00 [facility] Comment on above: Order Comment: Speci men Type: BLOOD SPECIMEN Ordering Facility: [facility] Address: [address] [id number] Performed By: #### T SCR30 #### [facility] CLIA [id number] [address] WBC (Bld) [#/Vol] 12.88 10*3/uL High 3.70-11.00 [facility] Comment on above: Order Comment: Speci men Type: BLOOD SPECIMEN Ordering Facility: [facility] Address: [address] [address] Performed By: #### T SCR30 #### [facility] CLIA [id number] [address] CNDSon 12-31-2022 CNDS HNO ID: [id number] Author: Smooth Figueroa MD Service: Urology Author Type: Resident Type: Discharge Summary Filed: 12/31/2022 3:52 PM Note Text: Attestation signed by Padma Medeiros MD at 12/31/2022 4:10 PM Attending Note I agree with the resident's findings and plan as documented and have discussed the case and management of the patient's care with the resident. Padma Medeiros MD Date: 12/31/22 Time: 4:09 PM DISCHARGE NOTE (Patient Admitted Less than 48 Hours) SERVICE DATE: 12/31/2022 SERVICE TIME: 3:51 PM ADMISSION DATE: 12/30/2022 DISCHARGE DISPOSITION: Home with Self Care DIET: Regular ACTIVITY AFTER DISCHARGE: Lifting is restricted to 15-20 lbs for 6 weeks FOLLOW UP CARE REQUIRED: Follow up with Dr. Medeiros DISCHARGE MEDICATIONS (ONLY ACTIVATE WHEN READY TO DISCHARGE): Current Discharge Medication List START taking these medications docusate sodium (COLACE) 100 mg Take 100 mg by mouth twice daily as needed for constipation. Qty: 60 capsule Refills: 0 oxyCODONE-acetaminophen (PERCOCET) 1 tablet Take 1 tablet by mouth every 6 hours as needed for pain. Qty: 12 tablet Refills: 0 Associated Diagnoses:Right renal mass CONTINUE these medications which have NOT CHANGED metformin HCl (METFORMIN ORAL) 1,000 mg Take 1,000 mg by mouth twice daily. lisinopril 2.5 mg Take 2.5 mg by mouth once daily. atorvastatin (LIPITOR) 80 mg Take 80 mg by mouth daily at bedtime. pioglitazone (ACTOS) 45 mg Take 45 mg by mouth once daily. Refills: 0 aspirin, enteric coated (ASPIRIN, ENTERIC COATED) 81 mg Take 81 mg by mouth once daily. Refills: 0 en-EF-LS-Hj-Ncg-Mcqashu -Lutein (CENTRUM) 0.4-162-18 mg tab Take by mouth once daily. Refills: 0 sildenafil (VIAGRA) 100 mg tablet TAKE 1 TABLET BY MOUTH ONCE DAILY NEEDED (1 HOUR BEFORE SEXUAL ACTIVITY) FINAL DIAGNOSIS: Right renal mass SIGNATURE: Smooth Figueroa MD PATIENT NAME: Bret Cintron DATE: December 31, 2022 TIME: 3:51 PM [facility] ANES PRE-OPon 12-30-2022 ANES PRE-OP HNO ID: [id number] Author: Kathy Burns MD Service: Anesthesiology Author Type: Anesthesiologist Type: Anesthesia Preprocedure Evaluation Filed: 12/30/2022 12:55 PM Note Text: ANESTHESIOLOGY DAY OF SURGERY NOTE : 1965 Procedure Information Date/Time: 12/30/22 1215 Procedures: XI ROBOTIC LAPAROSCOPIC NEPHRECTOMY PARTIAL (Right: Kidney) DANNY INTRAOPERATIVE ULTRASOUND GUIDANCE Location: [place] OR / [place] Surgeons: Padma Medeiros MD Estimated body mass index is 28.45 kg/m? as calculated from the following: Height as of 12/16/22: 180.3 cm (5' 11). Weight as of 12/16/22: 92.5 kg (204 lb). Most recent hematocrit and potassium results: Hematocrit 50.6 12/16/2022 Potassium 4.7 12/16/2022 Other history: T2DM HLD CKD - lisinopril for renal protection Relevant Problems CARDIO (+) Primary hypertension ENDO (+) Controlled type 2 diabetes mellitus without complication, without long-term current use of insulin (HCC) (+) Type 2 diabetes mellitus (HCC) I - PHYSICAL EVALUATION AIRWAY Patient intubated: No. Tracheostomy tube not present Mallampati: III. TM distance: >3 FB. Neck ROM: full ROM without neurological symptoms. Mouth opening: adequate. Short neck: no. Thick neck: yes Ng present: yes DENTAL Dental findings: teeth intact. II - ANESTHESIA PLAN ASA Score: 2 Anesthetic Plan: general Airway type: ETT The patient is not a current smoker. NPO Status: adequate Beta Julienne Perioperative beta-julienne/statin: n/a. Monitoring Plan Monitoring plan: standard ASA and invasive hemodynamic monitoring. Monitoring method: arterial Line Post Procedure Analgesic Plan Postoperative analgesic plan: multimodal analgesia. Informed Consent Anesthetic risks, benefits, alternatives, personnel and consent discussed: yes. Patient / Responsible Constitution Party agrees to proceed: yes Patient / Surrogate agrees to blood products: blood products not planned Significant changes in the patient condition since the History and Physical, not otherwise documented in primary service progress note: no. Potential Anesthesia issues that may suggest increased risk of complications or contraindication to planned procedure: none. No vitals data found for the desired time range. No current facility-administered medications on file as of 12/30/2022. Outpatient Medications as of 12/30/2022 Medication Sig - sildenafil (VIAGRA) 100 mg tablet TAKE 1 TABLET BY MOUTH ONCE DAILY NEEDED (1 HOUR BEFORE SEXUAL ACTIVITY) - metformin HCl (METFORMIN ORAL) Take 1,000 mg by mouth twice daily. - lisinopril 2.5 mg tablet Take 2.5 mg by mouth once daily. - atorvastatin (LIPITOR) 80 mg tablet Take 80 mg by mouth daily at bedtime. - pioglitazone (ACTOS) 15 mg tablet Take 45 mg by mouth once daily. - aspirin, enteric coated (ASPIRIN, ENTERIC COATED) 81 mg EC tablet Take 1 tablet by mouth once daily. - bl-AO-JK-Nq-Abc-Wvzecwm -Lutein (CENTRUM) 0.4-162-18 mg tab Take by mouth once daily. I have interviewed and examined the patient. I have reviewed the medical record and/or the pre-anesthesia evaluation, pertinent labs, and test results. This contains updated information obtained within 48 hours of Surgery/Procedure. SIGNATURE: Kathy Burns MD PATIENT NAME: Bret Cintron DATE: December 30, 2022 TIME: 10:37 AM CSN: [id number] [facility]RET CINTR[facility] ([id number]) 1965 M Date Time Provider Department 12/30/22 PADMA MEDEIROS During your visit today, we recorded the following information about you: Padma Medeiros MD 12/30/2022 10:06 PM Signed The patient is s/p robotic partial nephrectomy. Please schedule follow up visit with me in 2 weeks with CBC and BMP. Thanks Connie Gay COORD 12/31/2022 9:41 AM Signed Pt has been added to schedule. Will call pt and confirm appt and advise to get blood work prior. Connie Gay COORD Irma Murguia Coord 01/05/2023 3:49 PM Signed Called patient and he is aware of follow up appointment and told him to make sure to get the blood work done prior to appointment. Patient understands. Irma Murguia Coord Allergies As of Date: 12/30/2022 (No Known Allergies) Date Reviewed: 12/30/2022 Reviewed by: Amanda Haji RN - Fully Assessed Reason for Visit: Appointment [186] Primary Visit Diagnosis:Right renal mass [N28.89] Order(s):CBC [SQCBC] Order #: [id number] FUTURE BASIC METABOLIC PNL [SQBMP] Order #: [id number] FUTURE Prescriptions as of 01/05/2023 - simethicone, chewable (MYLICON) 80 mg chewable tablet Take 1 tablet by mouth every 6 hours as needed (gas and bloating) for up to 7 days. - docusate sodium (COLACE) 100 mg capsule Take 1 capsule by mouth twice daily as needed for constipation. - oxyCODONE-acetaminophen (PERCOCET) 5-325 mg tablet Take 1 tablet by mouth every 6 hours as needed for pain. - sildenafil (VIAGRA) 100 mg tablet TAKE 1 TABLET BY MOUTH ONCE DAILY NEEDED (1 HOUR BEFORE SEXUAL ACTIVITY) - metformin HCl (METFORMIN ORAL) Take 1,000 mg by mouth twice daily. - lisinopril 2.5 mg tablet Take 2.5 mg by mouth once daily. - atorvastatin (LIPITOR) 80 mg tablet Take 80 mg by mouth daily at bedtime. - pioglitazone (ACTOS) 15 mg tablet Take 45 mg by mouth once daily. - aspirin, enteric coated (ASPIRIN, ENTERIC COATED) 81 mg EC tablet Take 1 tablet by mouth once daily. - vo-LQ-FD-At-Ute-Twozgoj -Lutein (CENTRUM) 0.4-162-18 mg tab Take by mouth once daily. Problem List As Of Date 12/30/2022 Noted Resolved Dysmetabolic syndrome X [E88.81] 12/22/2011 Mixed hyperlipidemia [E78.2] 12/22/2011 Type 2 diabetes mellitus (HCC) [E11.9] 12/02/2022 Controlled type 2 diabetes mellitus without com*12/02/2022 Primary hypertension [I10] 12/02/2022 Right renal mass [N28.89] 12/30/2022 Encounter Status:Closed by PADMA MEDEIROS on 12/30/22 [facility] OPERATIVE NOon 12-30-2022 OPERATIVE NO HNO ID: [id number] Author: Padma Medeiros MD Service: Urology Author Type: Physician Type: Operative Report Filed: 12/30/2022 5:11 PM Note Text: OPERATIVE REPORT NAME: Bret Cintron LOG ID: [id number] Surgery/Procedure Date: 12/30/2022 Incision/Procedure Start Time: 12:46 PM Incision Close/Procedure End Time: Surgeon(s)/Proceduralis t(s) and Language And Literature Division Chair(s): Surgeon(s) and Role: * Padma Medeiros MD - Primary * Rajat Chandler MD - Resident - Assisting * Rylan Angeles MD Procedure(s): Robotic-assisted laparoscopic right partial nephrectomy; intraoperative renal ultrasound for tumor identification. Anesthesia: General Estimated Blood Loss: 300 ml Specimens: Right renal mass Implantable Devices: None Drains: 15-Fr round KEYLA drain; 16-Fr Aranda catheter Complications: None immediate Accidental Punctures and Lacerations: None Pre-Op/Pre-Procedure Diagnosis: (N28.89) Right renal mass (primary encounter diagnosis) Post-Op/Post-Procedure Diagnosis: Same as above Operative Indications: Bret Cintron is a 57 year old male who presents for surgery. Informed consent was obtained. Findings: 1. Warm ischemia: 53 minutes 2. Percent saved parenchyma: 85% 3. Surgical margins: grossly negative for tumor 4. Entry into the collecting system: yes Procedure Narrative: A huddle was performed wherein the patient, procedure, and laterality were verified in the presence of the patient and operative team. The patient was transported to the operating room and transferred to the operating table in the supine position. Sequential compression devices were placed on the lower extremities and turned on. After the placement of lines and monitors, general endotracheal anesthesia was induced, and an orogastric tube was inserted. Prophylactic antibiotics were administered prior to the procedure start. A Aranda catheter was inserted and placed to gravity drainage. The patient was repositioned in the lateral flank position with the right side up in preparation for a right-sided partial nephrectomy. All pressure points were padded appropriately. The patient was shaved, prepped, and draped in the usual sterile fashion. A time out was performed, wherein the patient, procedure, and laterality were confirmed prior to starting. Intraperitoneal access was obtained using a Veress needle off the lateral border of the rectus muscle in line with the eleventh rib. After access was obtained, an 8-mm robotic port was placed, and the camera was inserted. Under direct vision, three additional 8-mm robotic ports, one 12-mm AirSeal port, and two 5-mm retail assistant store manager ports were placed. A liver retractor was place. The robot was then docked. All of the port sites were infiltrated with 0.25% bupivacaine at the onset of the case. The peritoneum was incised along the line of Toldt, and the colon was reflected medially. The duodenum was released sharply, exposing the lateral border of the inferior vena cava. Superior to the insertion of the gonadal vein into the vena cava and anterior to the psoas muscle, the posterior renal plane was developed. Dissection was continued towards the renal hilum. One renal vein and one renal artery were identified and dissected out. The kidney was then defatted completely, and a bulge was noted on the posterior interpolar medial aspect of the kidney. Renal ultrasound was used to delineate the borders of the tumor. Two robotic bulldog clamps were placed on the artery, and one robotic bulldog clamp was placed on the vein. The partial nephrectomy was then performed, removing the tumor with a grossly negative margin. The tumor was bordering the renal sinus fat and collecting system. There was yellow tissue noted at the base of the resection. I reinserted the ultrasound and checked this area, and no residual mass was seen. I suspect that the lowe yellow tissue was renal sinus fat. The renorrhaphy was performed in two layers with a 2-0 Vicryl/Polysorb suture for the deep layer and 0 Vicryl/Polysorb suture for the capsular closure. The collecting system was closed in the deep layer. Capsular sutures were secured with nonabsorbable polymer clips. Vascular control was then released from the hilum. Hemostasis was checked and was noted to be excellent. The ischemia time was as noted above. No bleeding was noted from the renorrhaphy site. Surgicel was placed over the renorrhaphy site and hilum to support postoperative hemostasis. Gerota's fascia was re-approximated over the partial nephrectomy site with nonabsorbable polymer clips. The specimen was then placed in a retrieval bag, and the robot was undocked. The liver retractor was released. The 12-mm AirSeal port incision was extended, and the specimen was extracted and sent to Pathology. The fascia of the extraction site was closed with 0 PDS/Maxon suture in an interrupted fashion. The remainder of the ski (more content not included)... Normal [facility] SURGICAL PATHOLOGYon 023 CASE REPORT Normal [facility] Comment on above: Order Comment: Speci men Type: TISSUE SPECIMEN Ordering Facility: [facility] Address: [address] [place] [address] Result Comment: Surg ical Pathology Report Case: [id number] Authorizing Provider: Padma Medeiros MD Collected: 12/30/2022 12:55 PM Ordering Location: [place] [facility] Received: 12/31/2022 09:00 AM Pathologist: Morenita Gao MD Specimen: KIDNEY PARTIAL NEPHRECTOMY RIGHT, Right Renal Mass Performed By: #### S #### [facility] CLIA [id number] [address] CLINICAL HISTORY Normal [facility] Comment on above: Order Comment: Speci men Type: TISSUE SPECIMEN Ordering Facility: [facility] Address: [address] [place] [address] Result Comment: Pre- op diagnosis: Renal mass, right [N28.89] Performed By: #### S #### [facility] CLIA [id number] [address] DIAGNOSIS COMMENT This case has been reviewed by Dr. Pamella Cotton, who concurs with the above findings. [facility] Comment on above: Order Comment: Speci men Type: TISSUE SPECIMEN Ordering Facility: [facility] Address: [address] [place] [address] Performed By: #### S #### [facility] CLIA [id number] [address] FINAL DIAGNOSIS Normal [facility] Comment on above: Order Comment: Speci men Type: TISSUE SPECIMEN Ordering Facility: [facility] Address: [address] [place] [address] Result Comment: A. R ight renal mass, robotic laparoscopic partial nephrectomy: -- Clear-cell renal cell carcinoma (3.0 cm), WHO/ ISUP G3, see comment and case summary. Performed By: #### S #### [facility] CLIA [id number] [address] FINAL PERFORMING LAB Normal [facility] Comment on above: Order Comment: Speci men Type: TISSUE SPECIMEN Ordering Facility: [facility] Address: [address] [place] [address] Result Comment: Diag nostic interpretation performed at [facility], [address] [place] [address] CLIA# [id number] Manager Library: Rafi Quick M.D. Performed By: #### S #### [facility] CLIA [id number] [address] [place] [address] GROSS DESCRIPTION Normal [facility] Comment on above: Order Comment: Speci men Type: TISSUE SPECIMEN Ordering Facility: [facility] Address: [address] [place] [address] Result Comment: Gabriela SMITH PARTIAL NEPHRECTOMY RIGHT Received in formalin labeled right renal mass is a portion of kidney weighing 17 g and measuring 3.8 x 3.5 x 2.2 cm. The parenchymal resection margin is inked blue and the capsular surface is inked black. A 3.0 x 2.8 x 2 cm mass is identified upon sectioning (abuts parenchymal resection margin, abuts the capsular surface). The mass is orange and fibrous with focal areas of hemorrhage. The background uninvolved renal parenchyma is brown-garcia and unremarkable. Also received in the same container is a irregular unoriented fragment of fibroadipose tissue measuring 2.4 x 1.5 x 1 cm. No nodularity or induration is identified. A gross photograph is taken and attached to the case. Crown Presser sections are submitted as follows: A1-A3-mass in relation to capsular surface and parenchymal resection margin, A4-uninvolved renal parenchyma, A5-fragment of adipose tissue received in the same container. Gross examination performed at [facility], [address] [place] [address] CLIA#[id number] OLS December 31, 2022 9:40 AM Performed By: #### S #### [facility] CLIA [id number] [address] [place] SYNOPTIC REPORT Normal [facility] Comment on above: Order Comment: Speci men Type: TISSUE SPECIMEN Ordering Facility: [facility] Address: [place] [address] Result Comment: KIDRenea EY: Nephrectomy KIDNEY: RESECTION - A 8th Edition - Protocol posted: 04/29/2021 SPECIMEN Procedure: Partial nephrectomy Specimen Laterality: Right TUMOR Tumor Focality: Unifocal Tumor Site: Not specified Tumor Size: Greatest Dimension (Centimeters): 3.0 cm Additional Dimension (Centimeters): 2.8 cm Additional Dimension (Centimeters): 2 cm Histologic Type: Clear cell renal cell carcinoma Histologic Grade (WHO / ISUP): G3 (nucleoli conspicuous and eosinophilic at 100x magnification) Tumor Extent: Limited to kidney Sarcomatoid Features: Not identified Rhabdoid Features: Not identified Tumor Necrosis: Not identified Lymphovascular Invasion: Not identified MARGINS Margin Status: All margins negative for invasive carcinoma REGIONAL LYMPH NODES Regional Lymph Node Status: Not applicable (no regional lymph nodes submitted or found) PATHOLOGIC STAGE CLASSIFICATION (pTNM, AJCC 8th Edition) Reporting of pT, pN, and (when applicable) pM categories is based on information available to the pathologist at the time the report is issued. As per the AJCC (Chapter 1, 8th Ed.) it is the managing physician???s responsibility to establish the final pathologic stage based upon all pertinent information, including but potentially not limited to this pathology report. 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 Performed By: #### S #### [facility] CLIA [id number] [address] [place] Basic metabolic 2000 panelon 12-16-2022 Anion gap [Moles/Vol] 13 mmol/L Normal 9-18 [facility] Comment on above: Order Comment: Speci men Type: BLOOD SPECIMEN Ordering Facility: [facility] Address: [place] [address] Performed By: #### 2 4321-2 #### [facility] CLIA [id number] [address] [place] Calcium [Mass/Vol] 9.8 mg/dL Normal 8.5-10.2 [facility] Comment on above: Order Comment: Speci men Type: BLOOD SPECIMEN Ordering Facility: [facility] Address: [address] [place] [address] Performed By: #### 2 4321-2 #### [facility] CLIA [id number] [address] [place] Chloride [Moles/Vol] 102 mmol/L Normal 97-105 [facility] Comment on above: Order Comment: Speci men Type: BLOOD SPECIMEN Ordering Facility: [facility] Address: [address] [place] [address] Performed By: #### 2 4321-2 #### [facility] CLIA [id number] [address] CO2 [Moles/Vol] 25 mmol/L Normal 22-30 [facility] Comment on above: Order Comment: Speci men Type: BLOOD SPECIMEN Ordering Facility: [facility] Address: [address] [place] [address] Performed By: #### 2 4321-2 #### [facility] CLIA [id number] [address] [place] Creatinine [Mass/Vol] 0.95 mg/dL Normal 0.73-1.22 [facility] Comment on above: Order Comment: Speci men Type: BLOOD SPECIMEN Ordering Facility: [facility] Address: [address] [place] [address] Performed By: #### 2 4321-2 #### [facility] CLIA [id number] [address] ESTIMATED GLOMERULAR FILTRATION RATE 94 mL/min/1.73m??? Normal >=60 [facility] Comment on above: Order Comment: Speci men Type: BLOOD SPECIMEN Ordering Facility: [facility] Address: [address] [place] [address] Result Comment: Analilia mated Glomerular Filtration Rate (eGFR) is calculated using the 2020 CKD-EPI creatinine equation. This equation utilizes serum creatinine, sex, and age as parameters. The creatinine assay has traceable calibration to isotope dilution-mass spectrometry. Refer to KDIGO guidelines for clinical interpretation. In patients with unstable renal function, e.g. those with acute kidney injury, the eGFR may not accurately reflect actual GFR. Performed By: #### 2 4321-2 #### [facility] CLIA [id number] 1 [place] [address] [place] Glucose [Mass/Vol] 115 mg/dL High 74-99 [facility] Comment on above: Order Comment: Cisco archer Type: BLOOD SPECIMEN Ordering Facility: [facility] Address: [address] [place] [address] Result Comment: The [place] Diabetes Association (ADA) provides guidance for cutoff values for fasting glucose and random glucose. The ADA defines fasting as no caloric intake for at least 8 hours. Fasting plasma glucose results between 100 to 125 mg/dL indicate increased risk for diabetes (prediabetes). Fasting plasma glucose results greater than or equal to 126 mg/dL meet the criteria for diagnosis of diabetes. In the absence of unequivocal hyperglycemia, results should be confirmed by repeat testing. In a patient with classic symptoms of hyperglycemia or hyperglycemic crisis, random plasma glucose results greater than or equal to 200 mg/dL meet the criteria for diagnosis of diabetes. Reference: Standards of Medical Care in Diabetes 2016, [place] Diabetes Association. Diabetes Care. 2016.39(Suppl 1). Performed By: #### 2 4321-2 #### [facility] CLIA [id number] [address] [place] [address] [place] Potassium [Moles/Vol] 4.7 mmol/L Normal 3.7-5.1 [facility] Comment on above: Order Comment: Cisco archer Type: BLOOD SPECIMEN Ordering Facility: [facility] Address: [address] [place] [address] Performed By: #### 2 4321-2 #### [facility] CLIA [id number] 1 [place] [address] [place] Sodium [Moles/Vol] 140 mmol/L Normal 136-144 [facility] Comment on above: Order Comment: Speci men Type: BLOOD SPECIMEN Ordering Facility: [facility] Address: [address] [address] Performed By: #### 2 4321-2 #### [facility] CLIA [id number] [address] Urea nitrogen [Mass/Vol] 14 mg/dL Normal 9-24 [facility] Comment on above: Order Comment: Speci men Type: BLOOD SPECIMEN Ordering Facility: [facility] Address: [address] [address] Performed By: #### 2 4321-2 #### [facility] CLIA [id number] [address] CBC panel Auto (Bld)on 12-16 Erythrocyte distribution width (RBC) [Ratio] 13.1 % 11.5 - 15.0 % [facility] Hematocrit (Bld) [Volume fraction] 50.6 % 39.0 - 51.0 % [facility] Hemoglobin (Bld) [Mass/Vol] 16.9 g/dL 13.0 - 17.0 g/dL [facility] MCH (RBC) [Entitic mass] 33.1 pg 26.0 - 34.0 pg [facility] MCHC (RBC) [Mass/Vol] 33.4 g/dL 30.5 - 36.0 g/dL [facility] MCV (RBC) [Entitic vol] 99.0 fL 80.0 - 100.0 fL [facility] Nucleated RBC (Bld) [#/Vol] <0.01 k/uL [facility] Platelet mean volume (Bld) [Entitic vol] 10.5 fL 9.0 - 12.7 fL [facility] Platelets (Bld) [#/Vol] 227 10*3/uL 150 - 400 k/uL [facility] RBC (Bld) [#/Vol] 5.11 10*6/uL 4.20 - 6.0 0 m/uL [facility] WBC (Bld) [#/Vol] 8.01 10*3/uL 3.70 - 11. 00 k/uL [facility] Erythrocyte distribution width (RBC) [Ratio] 13.1 % Normal 11.5-15.0 [facility] Comment on above: Order Comment: Speci men Type: BLOOD SPECIMEN Ordering Facility: [facility] Address: [address] [address] Performed By: #### 5 8410-2 #### [facility] CLIA [id number] [address] Hematocrit (Bld) [Volume fraction] 50.6 % Normal 39.0-51.0 [facility] Comment on above: Order Comment: Speci men Type: BLOOD SPECIMEN Ordering Facility: [facility] Address: [address] [place] [address] Performed By: #### 5 8410-2 #### [facility] CLIA [id number] [address] Hemoglobin (Bld) [Mass/Vol] 16.9 g/dL Normal 13.0-17.0 [facility] Comment on above: Order Comment: Speci men Type: BLOOD SPECIMEN Ordering Facility: [facility] Address: [address] [address] Performed By: #### 5 8410-2 #### [facility] CLIA [id number] [address] MCH (RBC) [Entitic mass] 33.1 pg Normal 26.0-34.0 [facility] Comment on above: Order Comment: Speci men Type: BLOOD SPECIMEN Ordering Facility: [facility] Address: [address] [address] Performed By: #### 5 8410-2 #### [facility] CLIA [id number] [address] MCHC (RBC) [Mass/Vol] 33.4 g/dL Normal 30.5-36.0 [facility] Comment on above: Order Comment: Speci men Type: BLOOD SPECIMEN Ordering Facility: [facility] Address: [address] [place] [address] Performed By: #### 5 8410-2 #### [facility] CLIA [id number] [address] MCV (RBC) [Entitic vol] 99.0 fL Normal 80.0-100.0 [facility] Comment on above: Order Comment: Speci men Type: BLOOD SPECIMEN Ordering Facility: [facility] Address: [address] [place] [address] Performed By: #### 5 8410-2 #### [facility] CLIA [id number] [address] [place] Nucleated RBC (Bld) [#/Vol] 10*3/uL Normal <0.01 [facility] Comment on above: Order Comment: Speci men Type: BLOOD SPECIMEN Ordering Facility: [facility] Address: [address] [place] [address] Performed By: #### 5 8410-2 #### [facility] CLIA [id number] [address] Platelet mean volume (Bld) [Entitic vol] 10.5 fL Normal 9.0-12.7 [facility] Comment on above: Order Comment: Speci men Type: BLOOD SPECIMEN Ordering Facility: [facility] Address: [address] [place] [address] Performed By: #### 5 8410-2 #### [facility] CLIA [id number] [address] Platelets (Bld) [#/Vol] 227 10*3/uL Normal 150-400 [facility] Comment on above: Order Comment: Speci men Type: BLOOD SPECIMEN Ordering Facility: [facility] Address: [address] [place] [address] Performed By: #### 5 8410-2 #### [facility] CLIA [id number] [address] [place] RBC (Bld) [#/Vol] 5.11 10*6/uL Normal 4.20-6.00 [facility] Comment on above: Order Comment: Speci men Type: BLOOD SPECIMEN Ordering Facility: [facility] Address: [address] [address] Performed By: #### 5 8410-2 #### [facility] CLIA [id number] [address] WBC (Bld) [#/Vol] 8.01 10*3/uL Normal 3.70-11.00 [facility] Comment on above: Order Comment: Speci men Type: BLOOD SPECIMEN Ordering Facility: [facility] Address: [address] [place] [address] Performed By: #### 5 8410-2 #### [facility] CLIA [id number] [address] CONFIRM BLOOD TYPEon 023 ABO O [facility] Rh Nom (Bld) Positive [facility] ABO O Normal [facility] Comment on above: Order Comment: Speci men Type: BLOOD SPECIMEN Ordering Facility: [facility] Address: [address] [place] [address] Performed By: #### C ONABO #### [facility] CLIA [id number] [address] Rh Nom (Bld) Positive Normal [facility] Comment on above: Order Comment: Speci men Type: BLOOD SPECIMEN Ordering Facility: [facility] Address: [address] [place] [address] Performed By: #### C ONABO #### [facility] CLIA [id number] [address] [place] [address] HISTORY PHYSICALon 3 HISTORY PHYSICAL HNO ID: [id number] Author: Emiliano Mcallister APRN.NIYA Service: ? Author Type: Nurse Practitioner Type: HANDP Filed: 12/16/2022 12:21 PM Note Text: HISTORY AND PHYSICAL EXAMINATION SERVICE DATE: 12/16/2022 SERVICE TIME: 7:27 AM PRIMARY CARE PHYSICIAN: Keiry Wayne DO REASON FOR VISIT: Bret Cintron is a 57 year old male who is scheduled for Procedure(s): XI ROBOTIC LAPAROSCOPIC NEPHRECTOMY PARTIAL (Right) DANNY INTRAOPERATIVE ULTRASOUND GUIDANCE (N/A) at the request of Dr. Padma swift. My final recommendation will be communicated back to the requesting physician by way of shared medical record or letter.Visit type: PST. Subjective The patient has the following: ACTIVE PROBLEM LIST Dysmetabolic Syndrome X Mixed Hyperlipidemia Type 2 Diabetes Mellitus (Hcc) Controlled Type 2 Diabetes Mellitus Without Complication, Without Long-Term Current Use of Insulin (Hcc) Primary Hypertension COVID-19 Immunization Status Overdue - COVID-19 VACCINE (4 - Booster for Moderna series) Overdue since 11/26/2021 10/01/2021 Imm Admin: COVID-19 original vaccine, full dose, monovalent (MODERNA) 11/26/2020 Imm Admin: COVID-19 original vaccine, full dose, monovalent (MODERNA) 10/29/2020 Imm Admin: COVID-19 original vaccine, full dose, monovalent (MODERNA) CHIEF COMPLAINT: Kidney cancer HPI: Patient incidentally noted to have an enhancing 2.9 cm interpolar medial right renal mass on CT 11/12/22 in the work up for possible recurrent umbilical hernia. No hernia was noted. Renal mass is concerning for malignancy. Patient denies pain or urinary issues. REVIEW OF SYSTEMS: General: No weight loss, malaise or fevers. Neurological: Negative for: headaches, seizures and strokes. Respiratory: Denies coughing, wheezing, SOB Cardiovascular: HLD. Denies HTN, on Lisinopril for kidney protection. Denies chest pain, palpitations, or CHF GI: Negative for: abdominal pain, nausea and vomiting. : See HPI. Endocrine: DM-oral meds Negative for: hypothyroidism. Hematology: Denies bleeding/clotting disorder Oncology: See HPI. Psych: Negative for: anxiety and depression. Musculoskeletal: Negative for: back pain, joint pain and swelling. PAST MEDICAL HISTORY Diagnosis Date CKD (chronic kidney disease) stage 2, GFR 60-89 ml/min Diabetes mellitus (HCC) Pure hypercholesterolemia Renal mass PAST SURGICAL HISTORY Procedure Laterality Date PAST SURGICAL HISTORY OF umbilical hernia repair as a baby TONSILLECTOMY AND ADENOIDECTOMY as a child FAMILY HISTORY Problem Relation Age of Onset other ([place] and age 60) Mother other (diabetes and [place] age 60) Father Social History Tobacco Use Smoking status: Never Smokeless tobacco: Never Vaping Use Vaping Use: Never used Substance Use Topics Alcohol use: Yes Comment: occassionally Drug use: Not Currently Prior to Admission medications as of 12/16/22 1127 Medication Sig Last Dose Taking metformin HCl (METFORMIN ORAL) Take 1,000 mg by mouth twice daily. Yes lisinopril 2.5 mg tablet Take 2.5 mg by mouth once daily. Yes atorvastatin (LIPITOR) 80 mg tablet Take 80 mg by mouth daily at bedtime. Yes pioglitazone (ACTOS) 15 mg tablet Take 45 mg by mouth once daily. Yes aspirin, enteric coated (ASPIRIN, ENTERIC COATED) 81 mg EC tablet Take 1 tablet by mouth once daily. Yes ds-XK-JG-Lc-Rhw-Aupgwfl -Lutein (CENTRUM) 0.4-162-18 mg tab Take by mouth once daily. Yes sildenafil (VIAGRA) 100 mg tablet TAKE 1 TABLET BY MOUTH ONCE DAILY NEEDED (1 HOUR BEFORE SEXUAL ACTIVITY) No medication comments found. ALLERGIES No Known Allergies Objective PHYSICAL EXAM: General: alert and oriented and healthy appearance. Skin: Warm, dry, no diaphoresis. HEENT: Normocephalic, atraumatic, no lymphadenopathy. Cardiovascular: regular rate and rhythm, normal S1 and S2, no rub, murmurs, or gallop. Respiratory: normal breath sounds, no wheezes or crackles. Abdomen: Soft, nontender, BSx4. Extremities: no deformity, no edema or tenderness, no joint swelling or clubbing. Neurological: normal cognition and motor skills. PAIN ASSESSMENT: VITALS: BP 130/79 Pulse 62 Temp 97.9 Resp 14 Ht 5' 11 (1.80m) Wt 204 lb (92.5kg) SpO2 99% BMI 28.46 kg/(m2). Diagnostic tests reviewed for today's visit: Lab Value Units Date High Low HB No results within date range. HCT No results within date range. WBC No results within date range. PLT No results within date range. NA No results within date range. K No results within date range. GLUC No results within date range. BUN No results within date range. CREAT No results within date range. PTSEC No results within date range. INR No results within date range. APTT No results within date range. ALT No results within date range. AST No results within date range. TBILI No results within date range. TSH No results within date range. Lab Value Units Date (more content not included)... Normal [facility] TYPE AND SCREEN,30 DAYon ABO O [facility] HIstorical Ab Scr Status Negative [facility] Rh Nom (Bld) Positive [facility] ABO O Normal [facility] Comment on above: Order Comment: Speci men Type: BLOOD SPECIMEN Ordering Facility: [facility] Address: [address] [place] [address] Performed By: #### T SCR30 #### [facility] CLIA [id number] [address] HISTORICAL AB SCR STATUS Negative Normal [facility] Comment on above: Order Comment: Speci men Type: BLOOD SPECIMEN Ordering Facility: [facility] Address: [address] [place] [address] Performed By: #### T SCR30 #### [facility] CLIA [id number] [address] Rh Nom (Bld) Positive Normal [facility] Comment on above: Order Comment: Speci men Type: BLOOD SPECIMEN Ordering Facility: [facility] Address: [address] [place] [address] Performed By: #### T SCR30 #### [facility] CLIA [id number] [address] CNPNasima 12-10-2022 CNPN Telephone (KRISS) BRET CINTRON ([id number]) 1965 M Date Time Provider Department 12/10/22 PADMA MEDEIROS During your visit today, we recorded the following information about you: Matt Barry MA 12/10/2022 10:21 AM Signed Pt's scott called and was asking about the results of the ct scan of the chest. She is very upset that she hasn't heard from anyone. Pt's scott wanted to know about FMLA for herself. She asked to call Bret at [phone].Please advise JOI Perez MD 12/10/2022 1:09 PM Signed Please see my previous phone message for CT results. I do not know the office policy regarding FMLA . I recommend checking with the training systems officer. Thanks Katie Alexis 12/13/2022 1:18 PM Signed Spoke to patient he was given all information previously and I can close this call out. Katie Alexis Allergies As of Date: 12/10/2022 (No Known Allergies) Date Reviewed: 11/23/2022 Reviewed by: Padma Medeiros MD - Fully Assessed Reason for Visit: Patient Question [7315] Cmt: Pt's scott called and was asking about the results of the ct scan of the chest. She is very upset that she hasn't heard from anyone. Pt's scott wanted to know about FMLA for herself. She asked to call Bret at [phone].Please advise Prescriptions as of 12/13/2022 - lisinopril 2.5 mg tablet Take 2.5 mg by mouth once daily. - atorvastatin (LIPITOR) 80 mg tablet Take 80 mg by mouth once daily. - metFORMIN ER (GLUMETZA) 1,000 mg 24 hr tablet Take 1,000 mg by mouth daily with breakfast. - phentolamine-alprostadi l 0.5 mg-20 mcg/mL injection Inject 10 units in office as directed. Bring COLD to injection appt. - pioglitazone (ACTOS) 15 mg tablet Take 30 mg by mouth once daily. - aspirin, enteric coated (ASPIRIN, ENTERIC COATED) 81 mg EC tablet Take 1 tablet by mouth once daily. - sn-VS-JE-Vy-Dbh-Wueecru -Lutein (CENTRUM) 0.4-162-18 mg tab Take by mouth once daily. - Flaxseed Oil 1,000 mg ORAL Cap Take by mouth. Problem List As Of Date 12/10/2022 Noted Resolved Dysmetabolic syndrome X [E88.81] 12/22/2011 Mixed hyperlipidemia [E78.2] 12/22/2011 Type 2 diabetes mellitus (HCC) [E11.9] 12/02/2022 Controlled type 2 diabetes mellitus without com*12/02/2022 Primary hypertension [I10] 12/02/2022 Encounter Status:Closed by MATT BARRY on 12/10/22 [facility] CNP[facility] Telephone (UROLAE) BRET CINTRON Theo ([id number]) 1965 M Date Time Provider Department 12/09/22 PADMA MEDEIROS During your visit today, we recorded the following information about you: Colton Artis RN 12/09/2022 2:09 PM Signed Patient calling about results of chest CT that you ordered. Please advise. Bridget Medeiros MD 12/10/2022 1:02 PM Signed You can share the results: Tiny 2 mm subpleural nodule, nonspecific, can be reassessed with surveillance Small sclerotic focus left 8th rib, nonspecific. Coronary artery calcifications From my standpoint, the results are good; there is no obvious evidence of metastatic disease. Thanks Colton Artis RN 12/10/2022 1:16 PM Signed Spoke with patient and gave him the information. Colton Artis RN Allergies As of Date: 12/09/2022 (No Known Allergies) Date Reviewed: 11/23/2022 Reviewed by: Padma Medeiros MD - Fully Assessed Reason for Visit: Results [95] Prescriptions as of 12/10/2022 - lisinopril 2.5 mg tablet Take 2.5 mg by mouth once daily. - atorvastatin (LIPITOR) 80 mg tablet Take 80 mg by mouth once daily. - metFORMIN ER (GLUMETZA) 1,000 mg 24 hr tablet Take 1,000 mg by mouth daily with breakfast. - phentolamine-alprostadi l 0.5 mg-20 mcg/mL injection Inject 10 units in office as directed. Bring COLD to injection appt. - pioglitazone (ACTOS) 15 mg tablet Take 30 mg by mouth once daily. - aspirin, enteric coated (ASPIRIN, ENTERIC COATED) 81 mg EC tablet Take 1 tablet by mouth once daily. - je-FF-IN-Ql-Rtn-Prxyigk -Lutein (CENTRUM) 0.4-162-18 mg tab Take by mouth once daily. - Flaxseed Oil 1,000 mg ORAL Cap Take by mouth. Problem List As Of Date 12/09/2022 Noted Resolved Dysmetabolic syndrome X [E88.81] 12/22/2011 Mixed hyperlipidemia [E78.2] 12/22/2011 Type 2 diabetes mellitus (HCC) [E11.9] 12/02/2022 Controlled type 2 diabetes mellitus without com*12/02/2022 Primary hypertension [I10] 12/02/2022 Encounter Status:Closed by COLTON ARTIS on 12/09/[address] [facility] [address] CHEST WO IVCONon 12-07-19 CT CHEST WO IVCON * * *Final Report* * * DATE OF EXAM: Dec 07 2022 7:05AM [facility] 0541 - CT CHEST WO IVCON / PROCEDURE REASON: Malignant neoplasm of right kidney, except renal pelvis (HCC) * * * * Physician Interpretation * * * * EXAMINATION: CHEST CT WITHOUT CONTRAST CLINICAL HISTORY: Malignant neoplasm of right kidney, except renal pelvis Technique: Spiral CT acquisition of the chest from the thoracic inlet to the upper abdomen without contrast. MQ: [id number] CT Radiation dose: Integrated Dose-length product (DLP) for this visit = 531 mGy*cm CT Dose Reduction Employed: Automated exposure control (AEC) Comparison: Outside hospital CT abdomen and pelvis 11/12/2022 RESULT: Limitations: None. Lines, tubes, and devices: None. Lung parenchyma and airways: Calcified granulomas Tiny subpleural 2 mm nodule left lower lobe by the fissure image 67 Pleural space: No pleural effusion. No pleural thickening. Lower neck, lymph nodes, and mediastinum: The imaged thyroid gland is normal. No lymphadenopathy in the supraclavicular, axillary, mediastinal, or hilar regions. Heart, pericardium, and thoracic vessels: The thoracic aorta and main pulmonary artery are normal in caliber. The cardiac chambers are normal in size. Coronary artery atherosclerotic calcifications are noted, although the study is not optimized for coronary assessment. No pericardial effusion or thickening. Bones and soft tissues: Small sclerotic focus lateral left 8th rib, image 177 Upper abdomen: No abnormality in the imaged upper abdomen. Textile Conversion Manager (topogram) images: No additional findings. IMPRESSION: Tiny 2 mm subpleural nodule, nonspecific, can be reassessed with surveillance Small sclerotic focus left 8th rib, nonspecific. Coronary artery calcifications Furniture Upholsterer Apprentice: PSCB Transcribe Date/Time: Dec 09 2022 11:38A Dictated by : ELIAZAR HOOD MD This examination was interpreted and the report reviewed and electronically signed by: ELIAZAR HOOD MD on Dec 09 2022 11:44AM EST [id number] Normal [facility] CNCOon 12-06-2022 CNCO Letter Text Normal [facility] CNOVon 11-23-2022 CNOV Office Visit (UROLAE ) SAIDABRET Venegas ([id number]) 1965 M Date Time Provider Department 11/23/22 8:00 AM PADMA MEDEIROS During your visit today, we recorded the following information about you: Blood pressure Weight Height 128/82 94.3 kg 1.803 m Padma Medeiros MD 11/23/2022 9:00 AM Signed [facility] UROLOGY ESTABLISHED PATIENT FOLLOW-UP NOTE PATIENT: Bret S Saida (57 year old) PCP: Keiry Wayne, DO SUMMARY: Incidentally noted to have an enhancing 2.9 cm interpolar medial right renal mass on CT 11/12/22 in the work up for possible recurrent umbilical hernia. No hernia was detected. ASSESSMENT: 1. Right renal mass - ICD9: 593.9, ICD10: N28.89 (primary diagnosis) 2. Malignant neoplasm of right kidney, except renal pelvis (HCC) - ICD9: 189.0, ICD10: C64.1 3. CKD (chronic kidney disease) stage 2, GFR 60-89 ml/min - ICD9: 585.2, ICD10: N18.2 PLAN: The diagnosis of small renal mass was discussed in detail. Cr/GFR in 09/2022 was 1.07/71. Based on its radiographic appearance, I counseled the patient that there is an 80-90% risk of malignancy. Of malignant tumors, I counseled that 75% are indolent while 25% tend to be aggressive. At its current size, I estimate that the risk of metastasis is <2% (<4 cm). I reviewed the rationale, positive and negative predictive values (95-100% and 65-70%, respectively), potential risks (including pain, hemorrhage, hematuria, and pneumothorax), and non-diagnostic rate (up to 20%) of renal mass biopsy. For these reasons, I have counseled the patient against pursuing renal mass biopsy as it is unlikely to alter management and carries serious risks. Treatment options were discussed, including expectant management or active surveillance, partial nephrectomy, radical nephrectomy, and thermal ablation. In terms of active treatments, we discussed radical and partial nephrectomy. I discussed the fact that partial nephrectomy has the advantage of better long-term renal functional preservation, which may be advantageous in select patients, and offers equivalent long-term oncologic efficacy with a small (<5%) risk of local recurrence. We discussed the higher complication rate with partial nephrectomy and the need for long-term radiographic surveillance after surgery. In terms of thermal ablation, I discussed percutaneous cryoablation. I counseled the patient that this approach is reserved for small (<3 cm), well-located masses. I discussed the increased risk of recurrence and possible need for retreatment with this modality. The patient is interested in partial nephrectomy. I counseled the patient that partial nephrectomy is considered a major surgery that carries potential surgical risks including, but not limited to, bleeding, infection, adjacent organ injury, kidney loss, renal insufficiency, need for short-term or long-term dialysis, and cancer recurrence and anesthetic risks including, but not limited to, heart attack, stroke, pulmonary embolism/deep venous thrombosis, and . I discussed risks unique to partial nephrectomy, including ureteral injury, positive surgical margin, and conversion to radical nephrectomy. I discussed the open, laparoscopic, and robotic approaches and risk of open conversion with the minimally invasive surgery. I discussed the patient's overall health and how the patient's comorbidities may increase the risk of medical and/or surgical complications. I informed the patient that these complications may require longer hospitalization and/or additional surgery. The operation was reviewed in detail, including my preferred approach (robotic) and anticipated duration (4-6 hours). I discussed the expected postoperative course, including overnight stay in the hospital. I discussed the need for a Aranda catheter for overnight. I discussed the need for an abdominal drain that is usually removed prior to discharge from the hospital. I discussed that the patient would be on activity restrictions (no heavy lifting >15 lbs or strenuous activity) for 1 month after surgery. The patient was informed that another board-certified urologist would be assisting me with the surgery. The patient wishes to proceed with right robotic partial nephrectomy with intraoperative ultrasound for tumor identification, possible radical nephrectomy, possible open conversion . ([facility]) In terms of preoperative preparation for surgery, I discussed the following. Obtain CT thorax.I have asked the patient to stop the following blood thinners prior to surgery: aspirin for 7 days. A presurgical testing appointment will be requested. Clearance for surgery will be requested (more content not included)... Normal [facility] [place] 11-23-2022 EPHRAIM Telephone (UROLAG) BRET CINTRON ([id number]) 1965 M Date Time Provider Department 11/23/22 PADMA MEDEIROS During your visit today, we recorded the following information about you: Padma Medeiros MD 11/23/2022 8:46 AM Signed Surgery: Right robotic partial nephrectomy with intraoperative ultrasound for tumor identification, possible radical nephrectomy, possible open conversion Duration: 5 hour(s) Surgeon: Padma Medeiros MD Language And Literature Division Chair: Rylan Angeles MD Location: main Anesthesia: General Fluoroscopy: No Special equipment: Yes, If yes describe:robot Presurgical testing: Yes Clearance: Yes, If yes describe: medical Orders: No Bowel prep: No Blood thinners to stop: aspirin for 7 days Allergies As of Date: 11/23/2022 (No Known Allergies) Date Reviewed: 11/23/2022 Reviewed by: Padma Medeiros MD - Fully Assessed Reason for Visit: Orders [681] Prescriptions as of 11/23/2022 - lisinopril 2.5 mg tablet Take 2.5 mg by mouth once daily. - atorvastatin (LIPITOR) 80 mg tablet Take 80 mg by mouth once daily. - metFORMIN ER (GLUMETZA) 1,000 mg 24 hr tablet Take 1,000 mg by mouth daily with breakfast. - phentolamine-alprostadi l 0.5 mg-20 mcg/mL injection Inject 10 units in office as directed. Bring COLD to injection appt. - pioglitazone (ACTOS) 15 mg tablet Take 30 mg by mouth once daily. - aspirin, enteric coated (ASPIRIN, ENTERIC COATED) 81 mg EC tablet Take 1 tablet by mouth once daily. - po-IO-EL-Tc-Clh-Bkrvtxo -Lutein (CENTRUM) 0.4-162-18 mg tab Take by mouth once daily. - Flaxseed Oil 1,000 mg ORAL Cap Take by mouth. Problem List As Of Date 11/23/2022 Noted Resolved Dysmetabolic syndrome X [E88.81] 12/22/2011 Mixed hyperlipidemia [E78.2] 12/22/2011 Encounter Status:Closed by PADMA MEDEIROS on 11/23/22 [facility] UA DIP, URINE (POC)on 2022 BILIRUBIN UA (POCT) Negative Negative [facility] CLARITY UA (POCT) Clear [facility] COLOR UA (POCT) Yellow [facility] GLUCOSE UA (POCT) Negative Negative mg/dL [facility] HEMOGLOBIN/BLOOD UA (POCT) Negative Negative [facility] KETONE UA (POCT) Negative Negative mg/dL [facility] LEUKOCYTES UA (POCT) Negative Negative [facility] NITRITE [facility]A (POCT) Negative Negative [facility] PH UA (POCT) 6.0 4.5 - 8.0 [facility] Protein Ql (U) Negative Negative mg/dL [facility] SPECIFIC GRAVITY UA (POCT) 1.025 1.005 - 1.030 [facility] UROBILINOGEN UA (POCT) 0.2 E.U./dL Normal E.U./dL [facility] Basophil percentageOrdered B y: Dr. Gates on 11-12-2022 Creatinine [Mass/Vol] 1.2 mg/dL 0.70-1.30 [facility] No Panel InformationOrdered By: Dr. Gates on 11-12-2022 Bedside Estimated GFR (eGFR) > 60.0000 mL/min >60 [facility] LABORATORYOrdered By: Dennis Adan on 10-12-2022 Albumin DL <= 20 mg/L (U) [Mass/Vol] 1094 mcg/dL Invalid Interpretation Code AO ADM SS Albumin/Creatinine DL <= 20 mg/L (U) [Mass ratio] 9 mcg/mg Invalid Interpretation Code 0 - 30 mcg/mg AO ADM SS Creatinine (U) [Mass/Vol] 121.2 mg/dL Invalid Interpretation Code 39.0 - 259.0 mg/dL AO ADM SS Albumin BCP dye [Mass/Vol] 4.4 G/dL Invalid Interpretation Code 3.5 - 5.0 G/dL AO ADM SS Albumin/Globulin [Mass ratio] 1.6 {ratio} Invalid Interpretation Code 1.1 - 2.5 ratio AO ADM SS ALP [Catalytic activity/Vol] 84 U/L Invalid Interpretation Code 40 - 135 U/L AO ADM SS ALT With P-5'-P [Catalytic activity/Vol] 38 U/L Invalid Interpretation Code 16 - 63 U/L AO ADM SS AST With P-5'-P [Catalytic activity/Vol] 24 U/L Invalid Interpretation Code 10 - 40 U/L AO ADM SS Bilirubin [Mass/Vol] 1.2 mg/dL Invalid Interpretation Code 0.2 - 1.0 mg/dL AO ADM SS Calcium [Mass/Vol] 9.8 mg/dL Invalid Interpretation Code 8.4 - 10.2 mg/dL AO ADM SS Chloride [Moles/Vol] 101 mmol/L Invalid Interpretation Code 98 - 107 mmol/L AO ADM SS Cholesterol [Mass/Vol] 185 mg/dL Invalid Interpretation Code 0 - 200 mg/dL AO ADM SS Cholesterol in HDL [Mass/Vol] 49 mg/dL Invalid Interpretation Code 40 - 60 mg/dL AO ADM SS Cholesterol in LDL [Mass/Vol] 106 mg/dL Invalid Interpretation Code 0 - 130 mg/dL AO ADM SS CO2 [Moles/Vol] 29 mmol/L Invalid Interpretation Code 22 - 29 mmol/L AO ADM SS Creatinine [Mass/Vol] 1.07 mg/dL Invalid Interpretation Code 0.70 - 1.30 mg/dL AO ADM SS Electrolyte Balance 9.0 mEq/L Invalid Interpretation Code 4.0 - 15.0 mEq/L AO ADM SS Globulin 2.7 G/dL Invalid Interpretation Code AO ADM SS Glucose [Mass/Vol] 149 mg/dL Invalid Interpretation Code 70 - 105 mg/dL AO ADM SS Potassium [Moles/Vol] 4.5 mmol/L Invalid Interpretation Code 3.5 - 5.1 mmol/L AO ADM SS Prostate specific Ag [Mass/Vol] 1.40 ng/mL Invalid Interpretation Code 0.00 - 4.00 ng/mL AO ADM SS Protein [Mass/Vol] 7.1 G/dL Invalid Interpretation Code 6.4 - 8.2 G/dL AO ADM SS Sodium [Moles/Vol] 139 mmol/L Invalid Interpretation Code 136 - 145 mmol/L AO ADM SS Triglyceride [Mass/Vol] 149 mg/dL Invalid Interpretation Code 0 - 150 mg/dL AO ADM SS Urea nitrogen [Mass/Vol] 14 mg/dL Invalid Interpretation Code 7 - 18 mg/dL AO ADM SS Urea nitrogen/Creatinine [Mass ratio] 13 ratio Invalid Interpretation Code 7 - 27 ratio AO ADM SS LABORATORYOrdered By: SYSTEM SYSTEM on 10-12-2022 GFR 87 ml/min/1.73sqm Invalid Interpretation Code AO Chemistry S GFR Non- 71 ml/min/1.73sqm Invalid Interpretation Code AO Chemistry S BLADDER SCAN [facility] Vital Signs Date Time Vital Sign Value Performing Clinician Brook chavez 04-25-2025 08:03-0400 Body height 180.[address] Keiry Wayne DO Work Phone: [facility] 04-25-2025 08:03-0400 Body mass index (BMI) [Ratio] 28.3 kg/m2 Dr. Keiry Wayne DO Work Phone: [facility] 04-25-2025 08:03-0400 Body weight 92.[address] Keiry Wayne DO Work Phone: [facility] 02-13-2024 13:28-0400 Body height 180.3 cm Padma Medeiros MD Work Phone: [facility] 02-13-2024 13:28-0400 Body weight 93.44 kg Padma Medeiros MD Work Phone: [facility] 02-13-2024 13:28-0400 Diastolic blood pressure 77 mm[Hg] Padma Medeiros MD Work Phone: [facility] 02-13-2024 13:28-0400 Systolic blood pressure 134 mm[Hg] Padma Medeiros MD Work Phone: [facility] 01-18-2023 15:29-0400 Body height 180.3 cm Padma Medeiros MD Work Phone: [facility] 01-18-2023 15:29-0400 Body weight 93.44 kg Padma Medeiros MD Work Phone: [facility] 01-18-2023 15:29-0400 Diastolic blood pressure 76 mm[Hg] Padma Medeiros MD Work Phone: [facility] 01-18-2023 15:29-0400 Systolic blood pressure 148 mm[Hg] Padma Medeiros MD Work Phone: [facility] 12-16-2022 11:37-0500 Body height 180.3 cm [facility] 1 [facility] 12-16-2022 11:37-0500 Body temperature 97.9 [degF] Pst 1 [facility] 12-16-2022 11:37-0500 Body weight 92.53 kg Pst 1 [facility] 12-16-2022 11:37-0500 Diastolic blood pressure 79 mm[Hg] Pst 1 [facility] 12-16-2022 11:37-0500 Heart rate 62 /min Pst 1 [facility] 12-16-2022 11:37-0500 Respiratory rate 14 /min Pst 1 [facility] 12-16-2022 11:37-0500 SaO2% (BldA) [Mass fraction] 99 % Pst 1 [facility] 12-16-2022 11:37-0500 Systolic blood pressure 130 mm[Hg] Pst 1 [facility] 11-23-2022 08:08-0500 Body height 180.3 cm Padma Medeiros MD Work Phone: [facility] 11-23-2022 08:08-0500 Body weight 94.35 kg Padma Medeiros MD Work Phone: [facility] 11-23-2022 08:08-0500 Diastolic blood pressure 82 mm[Hg] Padma Medeiros MD Work Phone: [facility] 11-23-2022 08:08-0500 Systolic blood pressure 128 mm[Hg] Padma Medeiros MD Work Phone: [facility] 11-03-2022 07:58-0500 Body height 180.[address] Keiry Wayne Work Phone: [facility] 11-03-2022 07:58-0500 Body mass index (BMI) [Ratio] 30.1 kg/m2 Dr. Keiry Wayne Work Phone: [facility] 11-03-2022 07:58-0500 Body temperature 97 [degF] Dr. Keiry Wayne Work Phone: [facility] 11-03-2022 07:58-0500 Body weight 97.[address] Keiry Wayne Work Phone: [facility] 11-03-2022 07:58-0500 Diastolic blood pressure 85 mm[Hg] Dr. Keiry Wayne Work Phone: [facility] 11-03-2022 07:58-0500 Heart rate 70 /min Dr. Keiry Wayne Work Phone: [facility] 11-03-2022 07:58-0500 Respiratory rate 17 /min Dr. Keiry Wayne Work Phone: [facility] 11-03-2022 07:58-0500 SaO2% (BldA) [Mass fraction] 97 % Dr. Keiry Wayne Work Phone: [facility] 11-03-2022 07:58-0500 Systolic blood pressure 138 mm[Hg] Dr. Keiry Wayne Work Phone: [facility] Encounters Encounter Date Encounter Type Care Provider Facility Start: 08-28-2025 End: 08-28-2025 ambulatory Rajat Allred Facility:[facility] Start: 08-27-2025 End: 08-27-2025 ambulatory Gabe Rivas Facility:[facility] Start: 08-09-2025 End: 08-09-2025 Patient encounter procedure Laurie SCHNEIDER -[facility] Work Phone: Start: 08-09-2025 End: 08-09-[address] Keiry Wayne DO Work Phone: -[facility] Start: 08-01-2025 End: 08-01-[address] Keiry Wayne DO Work Phone: [facility] Start: 08-01-2025 End: 08-01-2025 Patient encounter procedure Laurie SCHNEIDER -[facility] Work Phone: Start: 08-01-2025 End: 08-01-2025 ambulatory Laurie May Facility:[facility] Start: 06-26-2025 End: 06-26-2025 ambulatory SONIA SCHWARTZ DO Facility:[facility] Start: 06-26-2025 End: 06-26-2025 Minor Procedure SONIA SCHWARTZ DO [facility] Start: 06-21-2025 End: 06-21-2025 Patient encounter procedure Laurie SCHNEIDER -[facility] Work Phone: Start: 06-21-2025 End: 06-21-[address] Keiry Wayne DO Work Phone: -[facility] Start: 06-14-2025 End: 06-14-[address] Keiry Wayne DO Work Phone: -Physical Therapy Start: 06-14-2025 End: 06-14-2025 Discharged Recurring Laurie SCHNEIDER -Physical Therapy Work Phone: Start: 04-25-2025 End: 04-25-[address] Gabe Rivas MD -[facility] Start: 04-25-2025 End: 04-25-[address] Keiry Wayne DO Work Phone: [facility] Work Phone: Start: 02-25-2025 End: 02-25-2025 Patient encounter procedure Padma Medeiros MD Work Phone: Urology Comment on above: History of kidney ca ncer (Primary Dx); Pulmonary nodule Start: 02-25-2025 End: 02-25-2025 ambulatory PADMA MEDEIROS Facility:[id number] Start: 02-19-2025 End: 02-19-2025 ambulatory PADMA MEDEIROS Facility:[facility] Start: 02-19-2025 End: 02-19-2025 Subsequent hospital visit by physician [facility] (I-Stat) Work Phone: Cat Scan Comment on above: History of kidney ca ncer [Z85.528] Start: 02-18-2025 End: 02-18-2025 Orders Only Padma Medeiros MD Work Phone: Urology Comment on above: History of kidney ca ncer (Primary Dx) Orders Start: 02-14-2024 Telephone encounter Padma Medeiros MD Work Phone: Urology Comment on above: Patient Update Start: 02-13-2024 End: 02-13-2024 Patient encounter procedure Padma Medeiros MD Work Phone: Urology Comment on above: History of kidney ca ncer (Primary Dx); Pulmonary nodule; Glucosuria Start: 02-01-2024 End: 02-01-2024 Subsequent hospital visit by physician [facility] (I-Stat) Work Phone: Cat Scan Comment on above: History of kidney ca ncer [Z85.528] Start: 10-25-2023 End: 10-26-2023 ambulatory KEIRY WAYNE DO Facility:[facility] Start: 10-25-2023 End: 10-25-2023 Patient encounter procedure KEIRY WAYNE DO [facility] Start: 08-02-2023 End: 08-02-2023 ambulatory PADMA MEDEIROS Facility:[facility] Start: 01-18-2023 End: 01-18-2023 ambulatory PADMA MEDEIROS Facility:[facility] Start: 01-18-2023 End: 01-18-2023 Patient encounter procedure Padma Medeiros MD Work Phone: [facility] Comment on above: Renal cell carcinoma of right kidney (HCC) (Primary Dx); Pulmonary nodule; Malignant neoplasm of right kidney, except renal pelvis (HCC); Lung nodules Start: 01-05-2023 Telephone encounter Padma Medeiros MD Work Phone: [facility] Comment on above: Patient Update; Brandie ent Question Start: 12-30-2022 Telephone encounter Padma Medeiros MD Work Phone: Urology Comment on above: Appointment Start: 12-30-2022 End: 12-31-2022 ambulatory PADMA MEDEIROS Facility:[facility] Start: 12-16-2022 End: 12-17-2022 ambulatory EMILIANO MCALLISTER Facility:[facility] Start: 12-16-2022 End: 12-17-2022 ambulatory PADMA MEDEIROS [facility] Start: 12-16-2022 Encounter for other preprocedural examination PADMA MEDEIROS [facility] Start: 12-16-2022 End: 12-16-2022 Admission to [facility] Start: 12-16-2022 End: 12-16-2022 ambulatory P[address] 1 Pre Surgical Testing Comment on above: Preoperative testing (Primary Dx); Controlled type 2 diabetes mellitus without complication, without long-term current use of insulin (HCC); Primary hypertension; Renal mass [N28.89 (ICD-10-CM)] Start: 12-16-2022 End: 12-16-2022 Patient encounter status Pst 1 Pre Surgical Te sting Start: 12-09-2022 Telephone encounter Padma Medeiros MD Work Phone: Urology Comment on above: Results Start: 12-07-2022 ambulatory PADMA MEDEIROS [facility] ity:[facility] Start: 12-07-2022 End: 12-07-2022 Subsequent hospital visit by physician [facility] SCAN [facility] Comment on above: Malignant neoplasm o f right kidney, except renal pelvis (HCC) [C64.1] Start: 11-23-2022 Telephone encounter Padma Medeiros MD Work Phone: Urology Comment on above: Orders Start: 11-23-2022 End: 11-23-2022 ambulatory KEIRY WAYNE Facility:[facility] Start: 11-23-2022 End: 11-23-2022 Patient encounter procedure Padma Medeiros MD Work Phone: Urology Comment on above: Right renal mass (Pr imary Dx); Malignant neoplasm of right kidney, except renal pelvis (HCC); CKD (chronic kidney disease) stage 2, GFR 60-89 ml/min Start: 11-12-2022 End: 11-12-[address] Keiry Wayne Work Phone: [facility] Work Phone: Start: 11-12-2022 End: 11-12-[address] Keiry Wayne Work Phone: [facility] Start: 11-03-2022 End: 11-03-[address] Keiry Wayne Work Phone: [facility] Start: 10-12-2022 End: 10-12-2022 Patient encounter procedure KEIRY WAYNE DO [facility] Procedures Date Procedure Procedure Detail Performing Clinician Start: 08-01-2025 MRI of lumbar spine Dr. Keiry Wayne DO Work Phone: Start: 04-25-2025 X-ray of lumbosacral spine Dr. Keiry Wayne DO Work Phone: Start: 02-13-2024 BLADDER SCAN Padma Medeiros MD Work Phone: Start: 02-13-2024 Urnls dip stick/tabl et rgnt auto w/o microscopy Padma Medeiros MD Work Phone: Start: 12-16-2022 Antibody screen Pst 1 Start: 12-16-2022 Antibody screen PADMA MEDEIROS Comment on above: Order Comment: Speci men Type: BLOOD SPECIMEN Ordering Facility: [facility] Address: [address] [place] [address] Performed By: #### T [id number] #### [facility] BLOOD B[facility] [id number] [address] [place] [address] [place] Start: 11-23-2022 Urnls dip stick/tabl et rgnt auto w/o microscopy Padma Medeiros MD Work Phone: Start: 11-12-2022 Computed tomography of abdomen and pelvis with contrast Dr. Keiry Wayne Work Phone: Start: 10-31-2015 Colonoscopy SONIA SCHWARTZ DO Comment on above: WNL Start: History of partial nephrectomy SONIA SCHWARTZ DO Comment on above: right side Plan of Treatment Date Care Activity Detail Author Start: 03-03-2026 End: 03-03-2026 Patient encounter procedure 03/03/2026 9:45 AM EDT [place] [address] Padma Medeiros MD [address] [place], [place] [address]maribell Garcia [address] [place], [place] [id number] Follow up after CT Urology Comment on above: Follow up after CT Start: 02-25-2026 End: 05-27-2026 Creatinine and Glomerular filtration rate.predicted panel - Serum, Plasma or Blood CREATININE BLD Lab Routine History of kidney cancer Expected: 02/25/2026 (Approximate), Expires: 05/27/2026 [facility] Comment on above: Expected: 02/25/2026 (Approximate), Expires: 05/27/2026 Start: 02-25-2026 End: 02-25-2026 Patient encounter procedure Cat Scan Comment on above: CT ABD/PEL W IVCON Start: 04-25-2025 X-ray of lumbosacral spine L/S Spine Min 4 Views [facility] Start: 04-25-2025 XR Spine Lumbar and Sacrum GE 4 Views [facility] Start: 02-25-2025 End: 02-25-2025 Patient encounter procedure 02/25/2025 2:45 PM EDT [facility] [place] [address] Padma Medeiros MD [address] [place] [address]mar[address]ell [address] [place], [place] [id number] Return in about 1 year (around 02/12/2025) for kidney cancer surveillance with CT scan results. Urology Comment on above: Return in about 1 ye ar (around 02/12/2025) for kidney cancer surveillance with CT scan results. Start: 08-02-2024 BP Controlled (<130/80) BP Controlle d (<130/80) [facility] Start: 07-01-2024 Covid-19 Vaccine (4 - 2024-25 season) Covid-19 Vaccine () [facility] Start: 07-01-2024 Influenza vaccination C [facility] Start: 10-31-2023 Behavioral Health Screening Behavioral Health Screening [facility] Start: 07-21-2023 End: 09-20-2023 CREATININE BLD CREATININE BLD Lab Routine Renal cell carcinoma of right kidney (HCC) Expected: 07/21/2023, Expires: 09/20/2023 [facility] Work Phone: Comment on above: Expected: 07/21/2023 , Expires: 09/20/2023 Start: 07-21-2023 End: 02-17-2024 Ct abdomen w/o & w/contrast material CT KIDNEY WO/W IVCON Radiology Routine Malignant neoplasm of right kidney, except renal pelvis (HCC) Expected: 07/21/2023, Expires: 02/17/2024 [facility] Work Phone: Comment on above: Expected: 07/21/2023 , Expires: 02/17/2024 Start: 07-21-2023 End: 02-17-2024 CT CHEST W IVCON CT CHEST W IVCON Radiology Routine Lung nodules Expected: 07/21/2023, Expires: 02/17/2024 [facility] Work Phone: Comment on above: Expected: 07/21/2023 , Expires: 02/17/2024 Start: 07-01-2023 Covid-19 Vaccine () Covid-19 Vaccine () [facility] Start: 01-13-2023 End: 03-15-2023 Basic metabolic 2000 panel - Serum or Plasma BASIC METABOLIC PNL Lab Routine Right renal mass Expected: 01/13/2023, Expires: 03/15/2023 [facility] Work Phone: Comment on above: Expected: 01/13/2023 , Expires: 03/15/2023 Start: 01-13-2023 End: 03-15-2023 CBC panel - Blood by Automated count CBC Lab Routine Right renal mass Expected: 01/13/2023, Expires: 03/15/2023 [facility] Work Phone: Comment on above: Expected: 01/13/2023 , Expires: 03/15/2023 Start: 12-16-2022 End: 02-15-2023 Basic metabolic 2000 panel - Serum or Plasma [facility] Work Phone: Comment on above: Expected: 12/16/2022 , Expires: 02/15/2023 Start: 10-31-2022 DEPRESSION ASSESSMENT DEPRESSION ASS ESSMENT [facility] Start: 07-01-2022 Influenza vaccination INFLUENZA (#1) [facility] Start: 11-26-2021 COVID-19 VACCINE (4 - Booster for Moderna series) COVID-19 VACCINE (4 - Booster for Moderna series) [facility] Start: 2021 PROSTATE CANCER SCREENING DISCUSSION PROSTATE CANCER SCREENING DISCUSSION [facility] Start: 2021 Prostate specific antigen measurement Prostate Cancer Screening Discussion [facility] Start: 10-31-2019 Urine microalbumin profile DTaP,Tdap,Td Vaccine (2 - Tdap) [facility] Start: 12-28-2016 LIPID SCREEN LIPID SCREEN [facility] Start: 11-24-2016 Pneumococcal vaccination Pneum ococcal Vaccine (2 of 2 - PPSV23 or PCV20) [facility] Start: 11-24-2016 Pneumococcal Vaccine : 50+ (2 of 2 - PPSV23) Pneumococcal Vaccine: 50+ (2 of 2 - PPSV23) [facility] Start: 01-24-2016 SHINGRIX VACCINE (1 of 2) SHINGRIX VACCINE (1 of 2) [facility] Start: 12-28-2014 DIABETES SCREEN DIABETES SCREEN [facility] Start: 12-28-2012 Hepatitis B screening URINE ALBUMIN:CREATININE RATIO [facility] Start: 12-28-2012 Hepatitis B surface antibody level LDL CHOLESTEROL [facility] Start: 06-28-2012 Hemoglobin A1c measurement HbA1C [facility] Start: 06-28-2012 Hemoglobin A1c/Hemoglobin.total in Blood HBA1C [facility] Start: 2011 COLOGUARD (FIT-DNA) COLOGUARD (FIT-D NA) [facility] Start: 2011 Colonoscopy COLONOSCOPY [facility] Start: 2011 COLORECTAL CANCER SCREENING COLORECTAL CANCER SCREENING [facility] Start: [address] COLONOGRAPHY [facility] Start: 2011 FECAL OCCULT BLOOD FECAL OCCULT BLOO D [facility] Start: 2011 Screening for malign ant neoplasm of colon [facility] Start: 2011 SIGMOIDOSCOPY SIGMOIDOSCOPY [facility] Start: 1985 Hepatitis B Vaccine (1 of 3 - 19+ 3-dose series) Hepatitis B Vaccine (1 of 3 - 19+ 3-dose series) [facility] Start: 1985 Urine microalbumin profile DTAP,TDAP,TD (1 - Tdap) [facility] Start: 01-24-1984 ANNUAL PCP TEAM FIELD HEALTH OFFICER SAMIR DISEASE VISIT ANNUAL PCP TEAM CHRONIC DISEASE VISIT [facility] Start: 01-24-1984 Anxiety Screening Anxiety Screening [facility] Start: 01-24-1984 BP CONTROLLED (<130/80) BP CONTROLLE D (<130/80) [facility] Start: 01-24-1984 Depression Screening Depression Scre ening [facility] Start: 01-24-1984 HEPATITIS C SCREENING HEPATITIS C [facility] Start: 01-24-1984 Hepatitis C screening Hepatitis C [facility] Start: 01-24-1984 HIV SCREENING HIV SCREENING [facility] Start: 01-24-1984 HIV screening HIV Screening [facility] Start: 01-24-1976 3 comp foot exam completed DIABETIC FOOT EXAM [facility] Start: 01-24-1976 Diabetic foot examination Diabetic Foot Exam [facility] Start: 01-24-1976 Glaucoma screening Dilated Retinal E xam [facility] Start: 01-24-1976 Hepatitis C antibody , confirmatory test DILATED RETINAL EXAM [facility] Start: 01-24-1972 PNEUMOCOCCAL (1 - PCV) PNEUMOCOCCAL (1 - PCV) [facility] Start: 1966 HEPATITIS B (1 of 3 - 3-dose series) HEPATITIS B (1 of 3 - 3-dose series) [facility] End: 03-14-2025 CT Abdomen and Pelvis W contrast IV CT ABD/PEL W IVCON Radiology Routine History of kidney cancer 1 Occurrences starting 02/13/2024 until 03/14/2025 [facility] Work Phone: Comment on above: 1 Occurrences starti ng 02/13/2024 until 03/14/2025 CT Abdomen and Pelvi s W contrast IV CT ABD/PEL W IVCON Radiology Routine History of kidney cancer 02/19/2025 9:08 AM EDT [facility] Work Phone: End: 03-27-2026 CT Abdomen and Pelvis W contrast IV CT ABD/PEL W IVCON Radiology Routine History of kidney cancer 1 Occurrences starting 02/25/2025 until 03/27/2026 [facility] Work Phone: Comment on above: 1 Occurrences starti ng 02/25/2025 until 03/27/2026 CT Chest W contrast IV CT CHEST W IVCON Radiology Routine Lung nodules 02/01/2024 9:17 AM EDT [facility] Work Phone: End: 03-14-2025 CT Chest W contrast IV CT CHEST W IVCON Radiology Routine History of kidney cancer Pulmonary nodule 1 Occurrences starting 02/13/2024 until 03/14/2025 [facility] Work Phone: Comment on above: 1 Occurrences starti ng 02/13/2024 until 03/14/2025 CT Chest W contrast IV CT CHEST W IVCON Radiology Routine History of kidney cancer Pulmonary nodule 02/19/2025 9:08 AM EDT [facility] CT Kidney WO and W contrast IV CT KIDNEY WO/W IVCON Radiology Routine History of kidney cancer Malignant neoplasm of right kidney, except renal pelvis (HCC) 02/01/2024 9:16 AM [facility] Work Phone: End: 12-23-2023 Ct thorax w/o contrast material CT CHEST WO IVCON Radiology Routine Malignant neoplasm of right kidney, except renal pelvis (HCC) 1 Occurrences starting 11/23/2022 until 12/23/2023 [facility] Work Phone: Comment on above: 1 Occurrences starti ng 11/23/2022 until 12/23/2023 End: 12-07-2022 Ct thorax w/o contrast material [facility] Work Phone: Comment on above: 1 Occurrences starti ng 12/07/2022 until 12/07/2022 [facility] End: 03-27-2026 XR Chest PA and Lateral XR CHEST 2V FRONTAL/LAT Radiology Routine History of kidney cancer 1 Occurrences starting 02/25/2025 until 03/27/2026 [facility] Comment on above: 1 Occurrences starti ng 02/25/2025 until 03/27/2026 [facility] Immunizations Immunization Date Immunization Notes Care Provider Thomas curry 09-05-2020 influenza, injectabl e, quadrivalent, preservative free; Translations: [Fluarix PF Quadrivalent ] KEIRY WAYNE DO [facility] 09-05-2020 influenza virus vaccine, unspecified formulation Ct (I-Stat) Work Phone: [facility] 09-29-2016 pneumococcal conjuga te vaccine, 13 valent KEIRY WAYNE DO [facility] Payers Date Payer Category Payer Self-pay [id number] 2019 Unknown [id number] 2019 Unknown [id number] 2019 Private Health Insurance [id number] 1966 Unknown [id number] 2.16.8 [id number] 1966 Unknown [id number]. [id number] Unknown [id number] Unknown [id number] Unknown [id number] 2.16.8 [id number] Unknown [id number] 2.16.8 [id number] Unknown [id number] 2.16.8 [id number] Unknown [id number] 2.16.8 [id number] Unknown [id number] 2.16.8 [id number] Unknown [id number] 2.16.8 [id number] Unknown [id number] 2.16.8 [id number] Unknown [id number] [id number] Social History Date Type Detail Facility Start: 11-12-2019 End: 11-03-2022 Tobacco smoking status Never smoked tobacco (finding) [facility] Start: 1965 Sex Assigned At Male [facility] Start: 12-22-2011 Tobacco use and exposure Smokeless tobacco non-user [facility] Work Phone: Start: 11-23-2022 End: 02-25-2025 Alcohol intake Current drinker of alcohol (finding) [facility] Start: 11-03-2022 Tobacco smoking status NHIS Unknown if ever smoked [facility] Start: 01-16-2021 None [facility] Start: 09-29-2019 With Family [facility] Start: 09-29-2019 Cigars [facility] Start: 12-15-2022 Alcohol Comment occassionally [facility] Start: 08-02-2023 End: 02-25-2025 History of Social function [facility] Start: 08-02-2023 End: 02-25-2025 Tobacco use panel [facility] National Score (1-10 0), lower number is lower risk 48 [facility] Start: 12-25-2022 Gender identity Identifies as male gender (finding) [facility] Sexual Orientation [place] Ava warren [facility] Start: 04-25-2019 Sex Male (finding) [facility] Functional Status Date Assessment Result Facility 12-31-2022 Are you deaf, or do you have serious difficulty hearing No 12/31/2022 3:57 PM Tatyana Hoff, KATYA No [facility] 12-31-2022 Are you blind, or do you have serious difficulty seeing, even when wearing glasses No 12/31/2022 3:57 PM Tatyana Hoff, KATYA No [facility] 12-31-2022 Do you have serious difficulty walking or climbing stairs No 12/31/2022 3:57 PM Tatyana Hoff, KATYA No [facility] 12-31-2022 Do you have difficul ty dressing or bathing No 12/31/2022 3:57 PM Tatyana Hoff, KATYA No [facility] 12-31-2022 Because of a physica l, mental, or emotional condition, do you have difficulty doing errands alone such as visiting a physician's office or shopping No 12/31/2022 3:57 PM Tatyana Hoff, KATYA No [facility] Mental Status Date Assessment Result Facility 12-31-2022 Because of a physica l, mental, or emotional condition, do you have serious difficulty concentrating, remembering, or making decisions No 12/31/2022 3:57 PM Tatyana Hoff, KATYA No [facility] Clinical Notes 11-23-2022 to 08-09-2025 Note Date & Type Note Facility 08-09-2025 Progress note [facility] 06-26-2025 Evaluation + Plan note Extrac emani from: Title:Clinical Document Author:SONIA SCHWARTZ DO D ate:06/26/25 BRANDON ADMISSION HISTORY AN D PHYSICIAL CHIEF COMPLAINT: Colorectal cancer screening HISTORY OF PRESENT ILLNESS: Colorectal cancer screening REVIEW OF SYSTEMS: Constitutional: denies weight loss Cardiovascular:denies chest pain, palpitations Respiratory:denies shortness of breath Gastrointestinal:no abd pain Musculoskeletal: no arthralgias Skin: no rashes ACTIVE PROBLEMS: (9) Diastasis recti (842110160) Erectile dysfunction (9257235981) Hyperlipidemia LDL goal <70 (514259500) Overweight with body mass index (BMI) 25.0-29.9 (0095302155) Personal history of renal cell cancer (8027199036) Screening for colon cancer (949856812) Screening for prostate cancer (699458205) Type 2 diabetes mellitus (838180113) Well adult exam (219258266) MEDICATIONS: Active Inpt Meds: None Active PRN Meds: None One Time Meds: None Active IV Meds: Sodium Chloride 0.9% intravenous solution 1,000 mL (NS 1,000 mL) Start: 06/26/25 6:34:00 EDT, Rate: 20 mL/hr, 06/26/25 6:34:00 EDT ALLERGIES: (1) Zetia FAMILY HISTORY: SOCIAL HISTORY: PHYSICAL EXAM: VITALS: [id number](kg) 06/26 06:3536.1--625325--82/27 90.9 24 Hr Tmax: 36.1 at 06/26 06:35 36 Hr Tmax: 36.1 at 06/26 06:35 Vital Signs are the last 5 in the past 48 hours. Weights display the last 5 within 7 days. Initial Wt: 06/26 90.9 kg 200 lb Current Wt: 06/26 90.9 kg 200 lb physical exam alert and oriented cardio; regular without murmur pulm; clear abd; soft, nontender LABS: No 36hr Lab Data DIAGNOSTICS: IMPRESSION: Colorectal cancer screening PLAN: Colonoscopy as discussed in office Future Appointments Appointment Date:10/21/2025 07:30:00 AM Scheduled Provider:HIRAM MARI Location:[facility] Appointment Type:PC OV Future Scheduled Tests Laboratory* Prostate Specific Antigen 10/16/24 * Prostate Specific Antigen 10/22/25 * A1C Hemoglobin 10/22/25 * Lipid Profile 10/16/24 * Lipid Profile 10/22/25 * Albumin/Creatinine Ratio, Random Urine 10/16/24 * Albumin/Creatinine Ratio, Random Urine 10/22/25 * Complete Metabolic Panel 10/16/24 * Complete Metabolic Panel 10/22/25 [facility] 08-27-2025 Hospital Discharge instructions Patient Education 06/26/2025 08:00:04 Monitored Anesthesia Care, Care After Monitored Anesthesia Care, Care After These instructions provide you with information about caring for yourself after your procedure. Your health care provider may also give you more specific instructions. Your treatment has been plannedaccording to current medical practices, but problems sometimes occur. Call your health care provider if you have any problems or questions after your procedure. What can I expect after the procedure? After your procedure, you may: Feel sleepy for several hours. Feel clumsy and have poor balance for several hours. Feel forgetful about what happened after the procedure. Have poor judgment for several hours. Feel nauseous or vomit. Have a sore throat if you had a breathing tube during the procedure. Follow these instructions at home: For at least 24 hours after the procedure: Have a responsible adult stay with you. It is important to have someone help care for you until youare awake and alert. Rest as needed. Do not: ?Participate in activities in which you could fall or become injured. ?Drive. ?Use heavy machinery. ?Drink alcohol. ?Take sleeping pills or medicines that cause drowsiness. ?Make important decisions or sign legal documents. ?Take care of children on your own. Eating and drinking Follow the diet that is recommended by your health care provider. If you vomit, drink water, juice, or soup when you can drink without vomiting. Make sure you have little or no nausea before eating solid foods. General instructions Take ksmy-kxr-dexauta and prescription medicines only as told by your health care provider. If you have sleep apnea, surgery and certain medicines can increase your risk for breathing problems. Follow instructions from your health care provider about wearing your sleep device: ?Anytime you are sleeping, including during daytime naps. ?While taking prescription pain medicines, sleeping medicines, or medicines that make you drowsy. If you smoke, do not smoke without supervision. Keep all follow-up visits as told by your health care provider. This is important. Contact a health care provider if: You keep feeling nauseous or you keep vomiting. You feel light-headed. You develop a rash. You have a fever. Get help right away if: You have trouble breathing. Summary For several hours after your procedure, you may feel sleepy and have poor judgment. Have a responsible adult stay with you for at least 24 hours or until you are awake and alert. This information is not intended to replace advice given to you by your health care provider. Make sure you discuss any questions you have with your health care provider. Document Released: 02/06/2017 Document Revised: 01/15/2019 Document Reviewed: 02/06/2017 [employer] Patient Education 2020 [employer] 06/26/2025 08:00:00 Colonoscopy, Adult, Care After, [id number] Colonoscopy, Adult, Care After This sheet gives you information about how to care for yourself after your procedure. Your doctor may also give you more specific instructions. If you have problems or questions, call your doctor. What can I expect after the procedure? After the procedure, it is common to have: A small amount of blood in your poop for 24 hours. Some gas. Mild cramping or bloating in your belly. Follow these instructions at home: General instructions For the first 24 hours after the procedure: ?Do not drive or use machinery. ?Do not sign important documents. ?Do not drink alcohol. ?Do your daily activities more slowly than normal. ?Eat foods that are soft and easy to digest. Take qobn-met-ywdmuec or prescription medicines only as told by your doctor. To help cramping and bloating: Try walking around. Put heat on your belly (abdomen) as told by your doctor. Use a heat source that your doctor recommends, such as a moist heat pack or a heating pad. ?Put a towel between your skin and the heat source. ?Leave the heat on for 20 30 minutes. ?Remove the heat if your skin turns bright red. This is especially important if you cannot feel pain, heat, or cold. You can get burned. Eating and drinking Drink enough fluid to keep your pee (urine) clear or pale yellow. Return to your normal diet as told by your doctor. Avoid heavy or fried foods that are hard to digest. Avoid drinking alcohol for as long as told by your doctor. Contact a doctor if: You have blood in your poop (stool) 2 3 days after the procedure. Get help right away if: You have more than a small amount of blood in your poop. You see large clumps of tissue (blood clots) in your poop. Your belly is swollen. You feel sick to your stomach (nauseous). You throw up (vomit). You have a fever. You have belly pain that gets worse, and medicine does not help your pain. Summary After the procedure, it is common to have a small amount of blood in your poop. You may also have mild cramping and bloating in your belly. For the first 24 hours after the procedure, do not drive or use machinery, do not sign important documents, and do not drink alcohol. Get help right away if you have a lot of blood in your poop, feel sick to your stomach, have a fever, or have more belly pain. This information is not intended to replace advice given to you by your health care provider. Make sure you discuss any questions you have with your health care provider. Document Released: 11/19/2011 Document Revised: 08/17/2018 Document Reviewed: 07/11/2017 [employer] Patient Education 2020 [employer]. Follow Up Care 05/23/2025 14:57:52 With:SONIA SCHWARTZ Address: [address] [place] [address] [place] [address] [phone] Business (1) When:Within 5 Year(s) With:HIRAM MARI Address: [address] [place] [phone] When: [facility] 08-27-2025 Note Discharge Instructions Thank you for allowing [facility] to assist you with your healthcare needs. The following is importantdischarge information regarding your hospital visit. Your Care Team HIRAM MARI Dr., Mona What to do next Instructions From Your Doctor Colonoscopy 5 years Scheduled Follow-Up Appointments Appointment Type When With Where Contact Information StatusPC OV 10/21/2025 07:30 AM EST HIRAM MARI [facility] Confirmed Follow Up Appointments Follow Up with SONIA SCHWARTZ When:In 5 years Where:[address] [place] [address] [place] [address] [phone] Business (1) Follow Up with HIRAM MARI Where:[address] [place] [phone] The Following Activity and Diet Have Been Ordered for You Discharge Activity - Ordered -- Driving Restricted, No driving until tomorrow, 06/26/25 6:34:00 EDT Discharge Return to Work, School, or Sports (Discharge Return to status) - Ordered -- May return to: work, 06/26/25 6:34:00 EDT Discharge Diet - Ordered -- Type of Diet: Regular Diet, 06/26/25 6:34:00 EDT Allergies Zetia body aches Medications Please ask your primary doctor or pharmacist before taking any other medication not listed, including over the counter drugs, herbal medications, vitamins and or supplements as they may interact withyour home medications. What How Much When Why Instructions Last Dose Unchanged aspirin (aspirin 81 mg oral delayed releasetablet) 1 tab(s) by mouth Every day Unchanged atorvastatin (atorvastatin 80 mg oral tablet) 1 tab(s) by mouth Once a day Duration: 90 Days Unchanged dapagliflozin (Farxiga 10 mg oral tablet) 1 tab(s) by mouth Once a day Type 2 diabetes mellitus Unchanged lisinopril (lisinopril 2.5 mg oral tablet) 1 tab(s) by mouth Once a day Duration: 90 Days Unchanged metFORMIN (MetFORMIN (Eqv-Glucophage XR) 500 mg oral tablet, EXTENDED RELEASE) 2 tab(s) by mouth Two (2) times a day Duration: 90 Days Unchanged multivitamin (Multivitamin) 1 tab(s) by mouth Every day Unchanged sildenafil (Viagra 100 mg oral tablet) 1 tab(s) by mouth Once a day as needed for as needed for erectile dysfunction Erectile dysfunction 1 hour before sexual activity Please take this list to your next doctor s visit. Bring all medications you take, including over the counter medications, herbals and other supplements with you to your doctor s visit. Patients and families are reminded to discard old lists and to update any records with all medication providers or retail pharmacies. Education Materials Monitored Anesthesia Care, Care After These instructions provide you with information about caring for yourself after your procedure. Your health care provider may also give you more specific instructions. Your treatment has been plannedaccording to current medical practices, but problems sometimes occur. Call your health care provider if you have any problems or questions after your procedure. What can I expect after the procedure? After your procedure, you may: Feel sleepy for several hours. Feel clumsy and have poor balance for several hours. Feel forgetful about what happened after the procedure. Have poor judgment for several hours. Feel nauseous or vomit. Have a sore throat if you had a breathing tube during the procedure. Follow these instructions at home: For at least 24 hours after the procedure: Have a responsible adult stay with you. It is important to have someone help care for you until youare awake and alert. Rest as needed. Do not: ? Participate in activities in which you could fall or become injured. ? Drive. ? Use heavy machinery. ? Drink alcohol. ? Take sleeping pills or medicines that cause drowsiness. ? Make important decisions or sign legal documents. ? Take care of children on your own. Eating and drinking Follow the diet that is recommended by your health care provider. If you vomit, drink water, juice, or soup when you can drink without vomiting. Make sure you have little or no nausea before eating solid foods. General instructions Take lrds-xmb-tscoxsr and prescription medicines only as told by your health care provider. If you have sleep apnea, surgery and certain medicines can increase your risk for breathing problems. Follow instructions from your health care provider about wearing your sleep device: ? Anytime you are sleeping, including during daytime naps. ? While taking prescription pain medicines, sleeping medicines, or medicines that make you drowsy. If you smoke, do not smoke without supervision. Keep all follow-up visits as told by your health care provider. This is important. Contact a health care provider if: You keep feeling nauseous or you keep vomiting. You feel light-headed. You develop a rash. You have a fever. Get help right away if: You have trouble breathing. Summary For several hours after your procedure, you may feel sleepy and have poor judgment. Have a responsible adult stay with you for at least 24 hours or until you are awake and alert. This information is not intended to replace advice given to you by your health care provider. Make sure you discuss any questions you have with your health care provider. Document Released: 02/06/2017 Document Revised: 01/15/2019 Document Reviewed: 02/06/2017 [employer] Patient Education 2020 [place]. Colonoscopy, Adult, Care After This sheet gives you information about how to care for yourself after your procedure. Your doctor may also give you more specific instructions. If you have problems or questions, call your doctor. What can I expect after the procedure? After the procedure, it is common to have: A small amount of blood in your poop for 24 hours. Some gas. Mild cramping or bloating in your belly. Follow these instructions at home: General instructions For the first 24 hours after the procedure: ? Do not drive or use machinery. ? Do not sign important documents. ? Do not drink alcohol. ? Do your daily activities more slowly than normal. ? Eat foods that are soft and easy to digest. Take mpve-ewh-rsyqyne or prescription medicines only as told by your doctor. To help cramping and bloating: Try walking around. Put heat on your belly (abdomen) as told by your doctor. Use a heat source that your doctor recommends, such as a moist heat pack or a heating pad. ? Put a towel between your skin and the heat source. ? Leave the heat on for 20 30 minutes. ? Remove the heat if your skin turns bright red. This is especially important if you cannot feel pain, heat, or cold. You can get burned. Eating and drinking Drink enough fluid to keep your pee (urine) clear or pale yellow. Return to your normal diet as told by your doctor. Avoid heavy or fried foods that are hard to digest. Avoid drinking alcohol for as long as told by your doctor. Contact a doctor if: You have blood in your poop (stool) 2 3 days after the procedure. Get help right away if: You have more than a small amount of blood in your poop. You see large clumps of tissue (blood clots) in your poop. Your belly is swollen. You feel sick to your stomach (nauseous). You throw up (vomit). You have a fever. You have belly pain that gets worse, and medicine does not help your pain. Summary After the procedure, it is common to have a small amount of blood in your poop. You may also have mild cramping and bloating in your belly. For the first 24 hours after the procedure, do not drive or use machinery, do not sign important documents, and do not drink alcohol. Get help right away if you have a lot of blood in your poop, feel sick to your stomach, have a fever, or have more belly pain. This information is not intended to replace advice given to you by your health care provider. Make sure you discuss any questions you have with your health care provider. Document Released: 11/19/2011 Document Revised: 08/17/2018 Document Reviewed: 07/11/2017 [email or web address] Patient Education 2020 [employer] Additional Information VACCINATE! IT SAVES LIVES! Members of the community who have not yet received the COVID-19 vaccine and would like to receive it can visit one of [facility] vaccine clinics. There are many vaccine clinic locations within the [facility]. For locations and available times, please visit [email or web address].[place].gov/. It is important to note that some COVID mobile vaccine clinics are held outdoors and may be canceled in rainy or stormy conditions. To learn more about pediatric vaccinations (ages 5-11), we invite you to visit the [facility] webpage. [email or web address].[email or web address]/[email or web address]-[email or web address]-[email or web address] stions.htmlTo learn more about the COVID-19 vaccine, we invite you to visit the CDC website for a list of frequently asked questions.https://www.cdc.gov/coronavirus/2019-ncov/vaccines/faq.html [facility] Patient Portal Access Instructions: Stay connected with your healthcare team and access your personal medical information anytime with the [facility] Patient Portal. Please follow the directions below to create your [facility] account: 1.Access the email account you provided upon registration to the hospital/physician office.2.Look for an invitation email from [facility].3.Open the email and access the invitation link: AcceptInvitation to [facility].4.Fill in the required dorsey to create your account. To access your account, visit [email or web address]. Click the blue button labeled Access Patient Portal and then log in with the username and password that you created in the steps above. You will be able to view your test results, lab results, a summary of your visits, upcoming appointments and more. There is also a convenient messaging option where you can send secure messages to your p Head[employer]vider. In addition, you will have the ability to download any documents or summaries to your computer and/or send the information securely to a physician. Remember that your healthcare information is confidential, so carefully consider who you will allowto register on the [facility] [facility] [facility] Patient Portal for access to your information. You can also access the [facility] Patient Portal on the [employer] fidencio. Simply click on Patient Portal and then log into your account. If you would like to receive a full copy of your medical records, please contact the [facility] Medical Records Department by calling [phone], Tuesday through Tuesday between 8 a.m. and 4:30 p.m. HOW TO SAFELY DISPOSE OF PRESCRIPTION MEDICATIONS Please use one of the following methods to safely dispose of your unused medications. 1.Use a drug disposal kit: the drug disposal pouch allows you to safely discard your old and unuseddrugs. Ask your nurse to give you one when you are discharged.2.Visit a local take-back location: Many local pharmacies and police departments have programs that collect old and unwanted prescriptiondrugs. Call your local pharmacy or go to http://MySmartPrice/2D4Sr1t to find one close to you.3.Make use of household items: Use cat litter or old coffee grounds to dispose medications if other options arenot available. Mix your drugs with these household products, seal them in an airtight container andthrow it into the garbage. Call [facility]: [phone] to be sure your drugs can be disposed of in this way. Some medicines may require a different approach.4.Never flush your medications down the toilet. IF YOU HAVE BEEN PRESCRIBED AN OPIOID FOR PAIN If you have been prescribed an opioid (such as hydrocodone, oxycodone or morphine), it is critical to understand the possible side effects and risks of opioid pain medications. Even when taken as directed, opioids can have several side effects including: Tolerance, meaning you might need to take more of a medication for the same pain relief. Nausea, vomiting and/or constipation. Sleepiness, dizziness, dry mouth, confusion, depression or itching. Physical dependence, meaning you have withdrawal symptoms when a medication is stopped, can develop within a few days. KNOW YOUR RESPONSIBILITIES It is important to know exactly how much and how often to take the opioid pain medications you are prescribed. Never take opioids in higher amounts or more often than prescribed. Do not combine opioids with alcohol or other drugs that cause drowsiness, such as benzodiazepines, also known as benzos, including diazepam and alprazolam, muscle relaxants or sleep aids. Never sell or share prescription opioids. This is illegal. Store opioids in a secure place and out of reach of others (including children, family, friends and visitors). The last page of this document has been signed and retained as a CHART COPY. Signatures Patient Education Materials Monitored Anesthesia Care, Care After Colonoscopy, Adult, Care After, Fywi-qv-Wuek Medication Leaflets My discharge plan and instructions have been reviewed and explained to me and I,SAIDA BRET Venegas understand my current condition and have read and understand these discharge instructions. I have received a written copy of the plan/instructions. If I have questions, I am aware that I should contactmy doctor. Patient/Crown Presser Signature: Date/Time: Relationship to Patient: Witness Name/Signature: Date/Time: [facility]08-27-2025 Note Indication for Surgery Colorectal cancer screening Preoperative Diagnosis Colorectal cancer screening Postoperative Diagnosis 1. 2 mm sigmoid polyp 2. 3 mm rectal polyp Operation Colonoscopy with snare polypectomy Surgeon(s) Sonia Schwartz D.O. Anesthesia MAC Estimated Blood Loss None Specimen(s) Polyps Complications None Technique The patient was evaluated in the preoperative area and surgical consent was obtained. He was then brought to endoscopy and monitored on pulse oximetry, cardiac monitoring and placed on supplemental oxygen. He was placed in left lateral decubitus position and a surgical timeout was obtained. Sedation was provided by anesthesia. A digital exam was unremarkable. Colonoscope inserted into the rectum advanced toward the cecum. Cecal pouch appeared normal. Photographs were obtained. Scope then carefully checked under 6-minute withdrawal with a good prep. A small sigmoid polyp was removed with cold snare polypectomy. Polyp was retrieved. Small rectal polyp was removed with cold snare polypectomy. The polyp was retrieved. Retroflexion in the rectum was normal. The scope was removed. Patient was then transferred to the recovery area in stable condition vital signs. Discharge summary: 1. Final Diagnosis: 1. 2 mm sigmoid polyp 2. 3 mm rectal polyp 2. Outcome: Patient tolerated procedure well without complication 3. Disposition: Patient was discharged home to follow previous diet and medications 4. Follow-up care: Follow-up with primary care physician as scheduled. Repeat exam in 5 years Digitally Signed by SONIA SCHWARTZ DO on 06/26/2025 07:54 AM [facility]08-27-2025 Anesthesiology Consult note Patient: BRET CINTRON Age: 60 years Sex: Male : 1965 Associated Diagnoses: None Author: RAJAT COLON APRN-MANAGER ZONE Assessment Postanesthesia assessment Vitals: Vital signs from flowsheet : Vital Signs 06/26/2025 7:50 EDT Heart Rate Monitored 53 bpm bpm Respiratory Rate - Anes 17 br/min br/min 06/26/2025 7:45 EDT Heart Rate Monitored 54 bpm bpm Respiratory Rate - Anes 17 br/min br/min Systolic Blood Pressure Non-Invasive 93 mmHg mmHg Diastolic Blood Pressure Non-Invasive 62 mmHg mmHg 06/26/2025 7:40 EDT Heart Rate Monitored 64 bpm bpm Respiratory Rate - Anes 13 br/min br/min Systolic Blood Pressure Non-Invasive 85 mmHg mmHg Diastolic Blood Pressure Non-Invasive 62 mmHg mmHg 06/26/2025 7:37 EDT Systolic Blood Pressure Non-Invasive 84 mmHg mmHg Diastolic Blood Pressure Non-Invasive 58 mmHg mmHg 06/26/2025 7:35 EDT Heart Rate Monitored 68 bpm bpm Respiratory Rate - Anes 23 br/min br/min 06/26/2025 6:35 EDT Temperature Temporal Artery 36.1 DegC Apical Heart Rate 50 bpm LOW Respiratory Rate 16 br/min Systolic Blood Pressure Non-Invasive 116 mmHg Diastolic Blood Pressure Non-Invasive 65 mmHg , Measurements from flowsheet . Mental status: alert & oriented x 4. Respiratory function: respirations are non-labored. Respiratory support: none. CV function: Normal rate. Cardiovascular support: none. Pain. Nausea status: see nursing documentation of medications. Postoperative hydration status: within normal limits. Digitally Signed by RAJAT COLON APRN-MANAGER ZONE on 06/26/2025 07:51 AM [facility]08-27-2025 Anesthesiology Consult note Patient: BRET CINTRON Age: 60 years Sex: Male : 1965 Associated Diagnoses: None Author: RAJAT COLON Preoperative Information Time of last solid food intake: 06/26/2025 00:00:00 Time of last clear liquid intake: 06/26/2025 05:00:00 Anesthesia history Patient's history: negative. Family's history: negative. Health Status Allergies: Nonallergic Reactions (Selected) Severity Not Documented Zetia- Body aches., Allergies (1) ActiveSeverityReaction Zetiabody aches Current medications: (Selected) Inpatient Medications Ordered NS 1,000 mL: 20 mL/hr, Intravenous Prescriptions Prescribed Farxiga 10 mg oral tablet: 10 mg, 1 tab(s), Oral, qDay, 90 tab(s), 3 Refill(s) MetFORMIN (Eqv-Glucophage XR) 500 mg oral tablet, EXTENDED RELEASE: 1,000 mg, 2 tab(s), Oral, BID, for 90 day(s), 360 tab(s), 3 Refill(s) Viagra 100 mg oral tablet: 100 mg, 1 tab(s), Oral, qDay, 1 hour before sexual activity, PRN: as needed for erectile dysfunction, 10 tab(s), 5 Refill(s) atorvastatin 80 mg oral tablet: 80 mg, 1 tab(s), Oral, qDay, for 90 day(s), 90 tab(s), 1 Refill(s) lisinopril 2.5 mg oral tablet: 2.5 mg, 1 tab(s), Oral, qDay, for 90 day(s), 90 tab(s), 3 Refill(s) Documented Medications Documented Multivitamin: 1 tab(s), Oral, Daily, 0 Refill(s) aspirin 81 mg oral delayed release tablet: 81 mg, 1 tab(s), Oral, Daily, 0 Refill(s), Medications (1) Active Scheduled: (0) Continuous: (1) NS (0.9% nacl) 1,000 mL 1,000 mL, Intravenous, 20 mL/hr PRN: (0) Problem list: Medical Overweight with body mass index (BMI) 25.0-29.9 / SNOMED CT 3384231378 / Confirmed Diastasis recti / SNOMED CT 596894359 / Confirmed Personal history of renal cell cancer / SNOMED CT 7351913840 / Confirmed Erectile dysfunction / SNOMED CT 8953846510 / Confirmed Well adult exam / SNOMED CT 178690015 / Confirmed Screening for prostate cancer / SNOMED CT 470380654 / Confirmed Screening for colon cancer / SNOMED CT 141447892 / Confirmed Hyperlipidemia LDL goal <70 / SNOMED CT 685977615 / Confirmed Type 2 diabetes mellitus / SNOMED CT 919841207 / Confirmed, Active Problems (9) Diastasis recti Erectile dysfunction Hyperlipidemia LDL goal <70 Overweight with body mass index (BMI) 25.0-29.9 Personal history of renal cell cancer Screening for colon cancer Screening for prostate cancer Type 2 diabetes mellitus Well adult exam Histories Past Medical History: Resolved Fatigue (928794496): Resolved. Family History: Heart attack Mother () Father () Diabetes Father () Procedure history: Colonoscopy ([id number]) in 2016 at 50 Years. Comments: 10/16/2024 8:37 DIANA - KEIRY WAYNE DO WNL History of partial nephrectomy ([id number]). Comments: 04/17/2024 8:24 ANILAT - Juliana Whitten LPN right side Social History: Social & Psychosocial Habits Alcohol Comment: occasional - 11/12/2019 09:33 - Emma Sawyer RN Employment/School 05/22/2025 Status: Employed Substance Abuse 06/26/2025 Use: Never Tobacco 06/26/2025 Tobacco Use: Never (less than 100 in l Exercise 05/22/2025 Times per week: 5-6 times/week Home/Environment 06/26/2025 Domestic Concerns None Living situation: Home/Independent Lives In Single level home Nutrition/Health 06/26/2025 Caffeine intake amount: tea 1 serving daily Physical Examination Vital Signs 06/26/2025 6:35 EDT Temperature Temporal Artery 36.1 DegC Apical Heart Rate 50 bpm LOW Respiratory Rate 16 br/min Systolic Blood Pressure Non-Invasive 116 mmHg Diastolic Blood Pressure Non-Invasive 65 mmHg Vital Signs (last 24 hrs) Last Charted Temp Ahqjpuim18.1 DegC (JUN 26 06:35) Heart Rate ApicalL 50 bpm (JUN 26 06:35) SRX589 mmHg (JUN 26 06:35) DBP65 mmHg (JUN 26 06:35) BMI27.96 (JUN 26 06:35) Measurements from flowsheet : Measurements 06/26/2025 6:35 EDT Height 180.3 cm Admission Weight 90.9 kg Weight Method Stated [place] Body Weight 75.26 kg BSA Admission 2.11 Body Mass Index 27.96 kg/m2 General: Alert and oriented. Airway: Normal temporomandibular joint mobility, Normal mouth. Mallampati classification: III (soft palate, base of uvula visible). Dentition Evaluation: Denies loose/chipped teeth. Respiratory: Respirations are non-labored. Cardiovascular: Normal rate. Neurologic: Alert, Oriented. Review / Management Results review: No qualifying data available , Lab results 06/26/2025 7:38 EDT SN - Proc - Anesthesia Type MAC SN - Proc - EBL 0 mL SN - Proc - Actual Procedure COLONOSCOPY 06/26/2025 7:33 EDT SN - PP - Body Position Lateral Right Side-up Standard Intra-op 06/26/2025 7:33 EDT SN - GCD - ASA Class 3 SN - GCD - Post-operative Diagnosis SCREENING SN - GCD - Case Level OPD Level 3 06/26/2025 7:33 EDT SN - CAt - Case Attendee SN - CAt - Case Attendee SN - CAt - Case Attendee SN - CAt - Case Attendee SN - CAt - Case Attendee SN - CAt - Case Attendee SN - CAt - Case Attendee SN - CAt - Case Attendee SN - CAt - Role Performed Primary Surgeon SN - CAt - Role Performed Excel Expert 1 SN - CAt - Role Performed Scrub 1 SN - CAt - Role Performed [facility] 06/26/2025 7:02 EDT [facility] History and Physical 06/26/2025 6:53 EDT Antecubital Right 06/26/2025 22 gauge Peripheral IV Activity: Insert new site Peripheral IV Dressing Condition: Clean, Dry, Intact Peripheral IV Dressing Activity: Applied, Transparent dressing Peripheral IV Line Status/Patency: Continuous infusion Peripheral IV Site Condition: No complications Peripheral IV Equipment: Extension set Peripheral IV Number of Attempts: 1 06/26/2025 6:52 EDT Sodium Chloride 0.9% Begin Bag 1,000 mL mL 06/26/2025 6:41 EDT IV Present Present Allergies Yes Anesthesia Extension Set Applied Yes Spindle Frame Carver On Yes Colon Prep Results Good Consent Form Signed Yes Patient Dressed In Hospital gown, No undergarments Pre-op Preparation Undergarments removed History & Physical Update On Chart Yes History & Physical On Chart Yes Bowel Prep Completed Yes Belongings At Bedside Cell phone, Pants, Shirt, Shoes, Socks, Wallet NPO Status Maintained Allergy Band on and Verified Yes Patient ID Band on and Verified Yes Implants Verified Yes Pacemaker/AICD Verified Yes Site Verified by Patient/Family Yes Anesthesia Consent Signed Yes Last Fluid Intake 06/26/2025 3:30 Last Food Intake 06/25/2025 5:00 06/26/2025 6:35 EDT Designated Person #1 We May Share PHI christian [phone] Designated Person #1 Relationship Son Height 180.3 cm Admission Weight 90.9 kg Weight Method Stated [place] Body Weight 75.26 kg BSA Admission 2.11 Body Mass Index 27.96 kg/m2 Temperature Temporal Artery 36.1 DegC Apical Heart Rate 50 bpm LOW Respiratory Rate 16 br/min Systolic Blood Pressure Non-Invasive 116 mmHg Diastolic Blood Pressure Non-Invasive 65 mmHg Respirations Unlabored Respiratory Pattern Regular Breath Sounds Auscultated Anterior only All Lobes Breath Sounds Clear Oxygen Saturation 95 % Abdomen Description Non-distended, Symmetric, Soft Bowel Sounds All Quadrants Present Status N/A Skin Description Mertens, Normal for ethnicity, Dry Skin Temperature Warm Skin Integrity Intact Skin Moisture General Dry Neurological Symptoms Patient denies Extremity Movement Equal Characteristics of Speech Clear Level of Consciousness Alert MENDEZ Yes Strength All Extremities Strong Affect/Behavior Appropriate, Calm, Cooperative Orientation Oriented x 4 Sensory Deficits None Infectious Disease Symptoms Patient states no symptoms Infectious Disease Recent Exposure No Alcohol and Drug Use No Employee of Institutional Living No Health Care Employee No History of Exposure to TB No History of Positive Chest X-Ray for TB No History of Positive TB Skin Test No Homeless No Known Immunosuppression No Recent Immigrant No Resident of Institutional Living No Bloody Sputum No Fatigue No Fever No Loss of Appetite No Night Sweats No Persistent Cough > 3 Weeks No Weight Loss No Sharon Motor (2) Moves 4 extremities voluntarily or on command Sharon Respirations (2) Spontaneous respiration without support, RR > 10 Sharon Blood Pressure (2) BP 20% above or below preanesthetic level Sharon Pulse (2) Pulse 20% above or below preanesthetic level Sharon Oxygen Saturation (2) 94% or more Sharon Level of Consciousness (2) Fully awake Sharon III Score 12 Orientation Assessment Oriented x 4 Barriers to Learning None evident Teaching Method Explanation, Printed materials Preferred Spoken Language Croatian Preferred Written Language Croatian Patient's Current Physicians Dr Arnett Discharge To, Anticipated Home independently Assistive Device None Positioning Repositions self Mobility Assistance Level Independent Activity Status ADL Awake Standard Safety ID band on, Allergy Band on, Call device within reach, Bed in low position, Wheels locked Prev Test Positive/Diagnosis w/COVID-19 No Current Quarantine/Isolated any Illness No Any Contact with Sick Animals/Birds No Traveled Anywhere in Last 30 Days No N/A Personal Devices, Patient Valuables None Admission Note-Nursing Procedure/Therapy Intake . Assessment and Plan [place] [employer] Anesthesiologists (ASA) physical status classification: Class III. Anesthetic Preoperative Plan Anesthetic technique: MAC. Informed consent: signed by patient. Digitally Signed by RAJAT COLON on 06/26/2025 07:39 AM [facility]08-27-2025 Note BRANDON ADMISSION HISTORY AND PHYSICIAL CHIEF COMPLAINT: Colorectal cancer screening HISTORY OF PRESENT ILLNESS: Colorectal cancer screening REVIEW OF SYSTEMS: Constitutional: denies weight loss Cardiovascular:denies chest pain, palpitations Respiratory:denies shortness of breath Gastrointestinal:no abd pain Musculoskeletal: no arthralgias Skin: no rashes ACTIVE PROBLEMS: (9) Diastasis recti (964120364) Erectile dysfunction (4992322761) Hyperlipidemia LDL goal <70 (430614231) Overweight with body mass index (BMI) 25.0-29.9 (0034744745) Personal history of renal cell cancer (3789230725) Screening for colon cancer (580610381) Screening for prostate cancer (834227939) Type 2 diabetes mellitus (758054323) Well adult exam (371600748) MEDICATIONS: Active Inpt Meds: None Active PRN Meds: None One Time Meds: None Active IV Meds: Sodium Chloride 0.9% intravenous solution 1,000 mL (NS 1,000 mL) Start: 06/26/25 6:34:00 EDT, Rate:20 mL/hr, 06/26/25 6:34:00 EDT ALLERGIES: (1) Zetia FAMILY HISTORY: SOCIAL HISTORY: PHYSICAL EXAM: VITALS: [id number](kg) 06/26 06:3536.1--031392--08/27 90.9 24 Hr Tmax: 36.1 at 06/26 06:35 36 Hr Tmax: 36.1 at 06/26 06:35 Vital Signs are the last 5 in the past 48 hours. Weights display the last 5 within 7 days. Initial Wt: 06/26 90.9 kg 200 lb Current Wt: 06/26 90.9 kg 200 lb physical exam alert and oriented cardio; regular without murmur pulm; clear abd; soft, nontender LABS: No 36hr Lab Data DIAGNOSTICS: IMPRESSION: Colorectal cancer screening PLAN: Colonoscopy as discussed in office Digitally Signed by SONIA SCHWARTZ DO on 06/26/2025 07:02 AM [facility]08-22-2025 Evaluation note* Diagnosis Onset Date Resolution Status Admit Date Degenerative disc disease (D DD) of lumbar region with discogenic back pain acute May 8:08am Lumbar stenosis with neuroge samir claudication acute June 21 8:08am Sacroiliitis acute June 21, 2025 8:08am Degenerative disc disease (D DD) of lumbar region with discogenic back pain acute July 11:08am Sacroiliitis acute July 11:08am [facility] Work Phone: 1(421) 982-777108-15-2025 Discharge summary [facility] Physical Therapy [address] [place] [address] / REHABILITATION SERVICES DISCHARGE SUMMARY MR#: [id number] Acct: [id number] Name: BRET CINTRON Rep #: [id number] : 1965 60 From: Pamella Velasquez Referring DrEmir: WYATT Hernandez Status: REG RCR Insurance: [facility] S[employer] PA[employer] INSURANCE Discharge Summary D/C summary: It has been my pleasure to treat BRET CINTRON referred by WYATT Hernandez, with the diagnosis of DDD lumbar with back and leg pain for a total of 10 visit(s). Discharge Date: 06/14/25 Please see the following information for a summary of their discharge status. Subjective Subjective: Pt is better. He is not waking up at night now. If he still does too much he will be inpain. Pt feels he is ok to do his HEP and understands what to do. He will go back to his Dr to see what the next step is. Pain Back pain: Pain Intensity (Out of 10): 3 L Leg pain: Pain Intensity (Out of 10): 5 L knee pain: Pain Intensity (Out of 10): 0 Overall Improvement % Improvement: 60 Objective Objective/Function: Pt really felt the MT to the glut med and the foam rolling to it. ALso felt on all 4's hip hike on the L Goals Goal 1:: I HEP Goal Progress: Goal Met Goal 2:: Walk with normal gait pattern and equal stance time Goal Progress: Progressing Goal 3:: Increase L painfree IT band and pirformis length Goal Progress: Progressing Goal 4:: Be able to sleep without waking up in pain Goal Progress: Goal Met Plan Plan: Dc PT to HEP and back to Dr for reassessment D/C Information Discharge Comments: DC PT to HEP d/c sentence: If there are questions or concerns regarding this patient's physical therapy, please feel free to call me at [phone]. Thank you for the referral of thispatient. Sincerely, WENCESLAO Thomas Balance/Gait/Functional tests Balance/Special Test Scores Oswestry Low Back Score: 9 Improvement % Improvement: 60 06/14/25 0736 CC: WYATT Hernandez; Dr. Keiry Wayne, DO ~ Signed [facility]08-15-2025 Discharge summary Author Pamella Moore [facility] Note Date/Time June 14, 2025 10 :02am [facility] [facility] [facility] [place] [address] / REHABILITATION SERVICES DISCHARGE SUMMARY MR#: [id number] Acct: [id number] Name: BRET CINTRON Rep #: [id number] : 1965 60 From: Pamella Moore MP T Referring Dr.: WYATT Hernandez Status: REG RCR Insurance: [facility] [employer] PA[employer] INSURANCE Discharge Summary D/C summary: It has been my pleasure to treat BRET CINTRON referred by WYATT Hernandez, with the diagnosis of DDD lumbar with back and leg pain for a total of 10 visit(s). Discharge Date: 06/14/25 Please see the following information for a summary of their discharge status. Subjective Subjective: Pt is better. He is not waking up at night now. If he still does too much he will be in pain. Pt feels he is ok to do his HEP and understands what to do. He will go back to his Dr to see what the next step is. Pain Back pain: Pain Intensity (Out of 10): 3 L Leg pain: Pain Intensity (Out of 10): 5 L knee pain: Pain Intensity (Out of 10): 0 Overall Improvement % Improvement: 60 Objective Objective/Function: Pt really felt the MT to the glut med and the foam rolling to it. ALso felt on all 4's hip hike on the L Goals Goal 1:: I HEP Goal Progress: Goal Met Goal 2:: Walk with normal gait pattern and equal stance time Goal Progress: Progressing Goal 3:: Increase L painfree IT band and pirformis length Goal Progress: Progressing Goal 4:: Be able to sleep without waking up in pain Goal Progress: Goal Met Plan Plan: Dc PT to HEP and back to Dr for reassessment D/C Information Discharge Comments: DC PT to HEP d/c sentence: If there are questions or concerns regarding this patient's physical therapy, please feel free to call me at [phone]. Thank you for the referral of thispatient. Sincerely, Pamella Moore, WENCESLAO Balance/Gait/Functional tests Balance/Special Test Scores Oswestry Low Back Score: 9 Improvement % Improvement: 60 <Electronically signed by Pamella Moore MPT> 06/14/25 0736 CC: WYATT Hernandez; Dr. Keiry Wayne, DO ~ Signed [facility] Work Phone: 1(242) 384-222506-26-2025 Evaluation note* Diagnosis Onset Date Resolution Status Admit Date Degenerative disc disease (D DD) of lumbar region with discogenic back pain acute April 25, 2025 7:42am Lumbar stenosis with neuroge samir claudication acute April 25, 2025 7:42am [facility] Work Phone: 1(401) 532-557906-26-2025 Evaluation note* Diagnosis Onset Date Resolution Status Admit Date Degenerative disc disease (D DD) of lumbar region with discogenic back pain acute April 25, 2025 7:42am Lumbar stenosis with neuroge samir claudication acute April 25, 2025 7:42am Degenerative disc disease (D DD) of lumbar region with discogenic back pain acute May 8:08am Lumbar stenosis with neuroge samir claudication acute June 21 8:08am Sacroiliitis acute June 21, 2025 8:08am [facility] Work Phone: [phone]) 575-100604-28-2025 History of Present illness Narrative* Padma Medeiros MD - 02/25/2025 2:45 PM EDT Images from the original note were not included. [facility] UROLOGY ESTABLISHED PATIENT FOLLOW-UP NOTE PATIENT: Bret Cintron (60 year old) PCP: Keiry Wayne, DO SUMMARY: #Renal cell carcinoma of right kidney. 12/30/22 - Right RPN. Final path - [id number] G3 ccRCC. Intermediate risk. #Pulmonary nodule. 2-mm left lung nodule, present at diagnosis, stable on CT-07/2023. Assessment & Plan History of kidney cancer Chronic, unstable. CT results reviewed - SANJEEV. Reassurance provided. Cr is stable. Continue routine cancer surveillance. Orders: CT ABD/PEL W IVCON; Future iv contrast (will be provided with radiology test); CT ABD/PEL -Inject, intravenously, once for 1 dose.No IV access, insert saline lock prior to the beginning of sedation, infusion, injection of imaging exam. Discontinue saline lock post exam. If Pt. has a central line or IVAD, may access for administration according to line specific nursing protocol. Once exam is complete flush line and de-access according to line specific nursing protocol in the CT contrast administration guidelines link. CREATININE BLD; Future XR CHEST 2V FRONTAL/LAT; Future Pulmonary nodule No nodules seen on recent CT. Observe. FOLLOW UP: Return in about 1 year (around 02/25/2026) for CT, CXR, Cr. CHIEF COMPLAINT: Patient presents with: History of kidney cancer HISTORY OF PRESENT ILLNESS: Prior notes were reviewed. The patient reports doing well. CHUCKY/AUASS FORMS No question data found. REVIEW OF SYSTEMS: Noncontributory ALLERGIES: ALLERGIES No Known Allergies MEDICATIONS: iv contrast (will be provided with radiology test) CT ABD/PEL -Inject, intravenously, once for 1 dose.No IV access, insert saline lock prior to the beginning of sedation, infusion, injection of imaging exam. Discontinue saline lock post exam. If Pt. has a central line or IVAD, may access for administration according to line specific nursing protocol. Once exam is complete flush line and de-accessaccording to line specific nursing protocol in the CT contrast administration guidelines link. iv contrast (will be provided with radiology test) CT ABD/PEL -Inject, intravenously, once for 1 dose.No IV access, insert saline lock prior to the beginning of sedation, infusion, injection of imaging exam. Discontinue saline lock post exam. If Pt. has a central line or IVAD, may access for administration according to line specific nursing protocol. Once exam is complete flush line and de-accessaccording to line specific nursing protocol in the CT contrast administration guidelines link. docusate sodium (COLACE) 100 mg capsule Take 1 capsule by mouth twice daily as needed for constipation. (Patient not taking: Reported on 02/25/2025) oxyCODONE-acetaminophen (PERCOCET) 5-325 mg tablet Take 1 tablet by mouth every 6 hours as needed for pain. (Patient not taking: Reported on 02/25/2025) sildenafil (VIAGRA) 100 mg tablet TAKE 1 TABLET BY MOUTH ONCE DAILY NEEDED (1 HOUR BEFORE SEXUALACTIVITY) metformin HCl (METFORMIN ORAL) Take 1,000 mg by mouth twice daily. lisinopril 2.5 mg tablet Take 2.5 mg by mouth once daily. atorvastatin (LIPITOR) 80 mg tablet Take 80 mg by mouth daily at bedtime. pioglitazone (ACTOS) 15 mg tablet Take 45 mg by mouth once daily. (Patient not taking: Reported on 02/25/2025) aspirin, enteric coated (ASPIRIN, ENTERIC COATED) 81 mg EC tablet Take 1 tablet by mouth once daily. qb-HP-GT-Fx-Rax-Zizqrgu-Lutein (CENTRUM) 0.4-162-18 mg tab Take by mouth once daily. PAST HISTORY: PAST MEDICAL HISTORY Diagnosis Date CKD (chronic kidney disease) stage 2, GFR 60-89 ml/min Diabetes mellitus (HCC) History of kidney cancer Pure hypercholesterolemia Renal mass PAST SURGICAL HISTORY Procedure Laterality Date PAST SURGICAL HISTORY OF umbilical hernia repair as a baby TONSILLECTOMY & ADENOIDECTOMY <AGE 13 as a child FAMILY HISTORY Problem Relation Age of Onset other (Mi and age 60) Mother other (diabetes and [place] age 60) Father Social History Tobacco Use Smoking status: Never Smokeless tobacco: Never Vaping Use Vaping status: Never Used Substance Use Topics Alcohol use: Yes Comment: occassionally Drug use: Not Currently PHYSICAL EXAMINATION: There were no vitals taken for this visit. Constitutional: In no acute distress. Well appearing. DATA: Clinic: URINALYSIS: N/a Laboratory: Creatinine Date Value Ref Range Status 02/19/2025 1.12 0.73 - 1.22 mg/dL Final 02/01/2024 1.15 0.73 - 1.22 mg/dL Final 07/21/2023 1.13 0.73 - 1.22 mg/dL Final 01/12/2023 1.22 0.73 - 1.22 mg/dL Final PSA: No results found for: PSA Cultures: No data to display Susceptibility Tests - Past 1 Year No results found for the last 365 days. MEDICAL DECISION MAKING PROBLEM(S): 1 or more, chronic unstable problem(s) with mild exacerbation, progression, or side effects of treatment (moderate) DATA: Category 1 Review of test result(s): Ordering of test(s): CT, CXR, Cr Review of prior external note: Independent historian: Category 2 Independent interpretation of test: Category 3 Discussion of management or test interpretation: RISK: ORDERS THIS VISIT: Orders Placed This Encounter CT ABD/PEL W IVCON Order Comments: In 12 months Standing Status: Future Expiration Date: 03/27/2026 Specify enteric contrast choice:: None CXR - 12 mo Standing Status: Future Expiration Date: 03/27/2026 Scheduling Instructions: In 12 months Cr - 12 mo* Standing Status: Future Expected Date: 02/25/2026 Expiration Date: 05/27/2026 iv contrast (will be provided with radiology test) Sig: CT ABD/PEL -Inject, intravenously, once for 1 dose.No IV access, insert saline lock prior to the beginning of sedation, infusion, injection of imaging exam. Discontinue saline lock post exam. IfPt. has a central line or IVAD, may access for administration according to line specific nursing protocol. Once exam is complete flush line and de-access according to line specific nursing protocol in the CT contrast administration guidelines link. Dispense: 1 each Refill: 0 I have reviewed the problem list, family history, and social history documented by my ancillary staff. Padma Medeiros MD Staff Urologist documented in this encounter[facility]-28-[facility]25 NoteHNO ID: [id number] Author: PADMA MEDEIROS MD Service: ? Author Type: Physician Type: Progress Notes Filed: 02/25/2025 13:50 Note Text: [facility] UROLOGY ESTABLISHED PATIENT FOLLOW-UP NOTE PATIENT: Bret Cintron (60 year old) PCP: Keiry Wayne, DO SUMMARY: #Renal cell carcinoma of right kidney. 12/30/22 - Right RPN. Final path - [id number] G3 ccRCC. Intermediate risk. #Pulmonary nodule. 2-mm left lung nodule, present at diagnosis, stable on CT-07/2023. Assessment AND Plan History of kidney cancer Chronic, unstable. CT results reviewed - SANJEEV. Reassurance provided. Cr is stable. Continue routine cancer surveillance. Orders: CT ABD/PEL W IVCON; Future iv contrast (will be provided with radiology test); CT ABD/PEL -Inject, intravenously, once for 1 dose.No IV access, insert saline lock prior to the beginning of sedation, infusion, injection of imaging exam. Discontinue saline lock post exam. If Pt. has a central line or IVAD, may access for administration according to line specific nursing protocol. Once exam is complete flush line and de-access according to line specific nursing protocol in the CT contrast administration guidelines link. CREATININE BLD; Future XR CHEST 2V FRONTAL/LAT; Future Pulmonary nodule No nodules seen on recent CT. Observe. FOLLOW UP: Return in about 1 year (around 02/25/2026) for CT, CXR, Cr. CHIEF COMPLAINT: Patient presents with: History of kidney cancer HISTORY OF PRESENT ILLNESS: Prior notes were reviewed. The patient reports doing well. CHUCKY/AUASS FORMS No question data found. REVIEW OF SYSTEMS: Noncontributory ALLERGIES: ALLERGIES No Known Allergies MEDICATIONS: iv contrast (will be provided with radiology test) CT ABD/PEL -Inject, intravenously, once for 1 dose.No IV access, insert saline lock prior to the beginning of sedation, infusion, injection of imaging exam. Discontinue saline lock post exam. If Pt. has a central line or IVAD, may access for administration according to line specific nursing protocol. Once exam is complete flush line and de-access according to line specific nursing protocol in the CT contrast administration guidelines link. iv contrast (will be provided with radiology test) CT ABD/PEL -Inject, intravenously, once for 1 dose.No IV access, insert saline lock prior to the beginning of sedation, infusion, injection of imaging exam. Discontinue saline lock post exam. If Pt. has a central line or IVAD, may access for administration according to line specific nursing protocol. Once exam is complete flush line and de-access according to line specific nursing protocol in the CT contrast administration guidelines link. docusate sodium (COLACE) 100 mg capsule Take 1 capsule by mouth twice daily as needed for constipation. (Patient not taking: Reported on 02/25/2025) oxyCODONE-acetaminophen (PERCOCET) 5-325 mg tablet Take 1 tablet by mouth every 6 hours as needed for pain. (Patient not taking: Reported on 02/25/2025) sildenafil (VIAGRA) 100 mg tablet TAKE 1 TABLET BY MOUTH ONCE DAILY NEEDED (1 HOUR BEFORE SEXUAL ACTIVITY) metformin HCl (METFORMIN ORAL) Take 1,000 mg by mouth twice daily. lisinopril 2.5 mg tablet Take 2.5 mg by mouth once daily. atorvastatin (LIPITOR) 80 mg tablet Take 80 mg by mouth daily at bedtime. pioglitazone (ACTOS) 15 mg tablet Take 45 mg by mouth once daily. (Patient not taking: Reported on 02/25/2025) aspirin, enteric coated (ASPIRIN, ENTERIC COATED) 81 mg EC tablet Take 1 tablet by mouth once daily. qp-YD-PC-Zj-Faf-Clgrjey-Lutein (CENTRUM) 0.4-162-18 mg tab Take by mouth once daily. PAST HISTORY: PAST MEDICAL HISTORY Diagnosis Date CKD (chronic kidney disease) stage 2, GFR 60-89 ml/min Diabetes mellitus (HCC) History of kidney cancer Pure hypercholesterolemia Renal mass PAST SURGICAL HISTORY Procedure Laterality Date PAST SURGICAL HISTORY OF umbilical hernia repair as a baby TONSILLECTOMY AND ADENOIDECTOMY as a child FAMILY HISTORY Problem Relation Age of Onset other (Mi and age 60) Mother other (diabetes and [place] age 60) Father Social History Tobacco Use Smoking status: Never Smokeless tobacco: Never Vaping Use Vaping status: Never Used Substance Use Topics Alcohol use: Yes Comment: occassionally Drug use: Not Currently PHYSICAL EXAMINATION: There were no vitals taken for this visit. Constitutional: In no acute distress. Well appearing. DATA: Clinic: URINALYSIS: N/a Laboratory: Creatinine Date Value Ref Range Status 02/19/2025 1.12 0.73 - 1.22 mg/dL Final 02/01/2024 1.15 0.73 - 1.22 mg/dL Final 07/21/2023 (more content not included)...[facility]04-22-2025 History of Present illness Narrative* Reef Irma Chambers RT(R) - 02/19/2025 8:40 AM EDT Radiology Service Progress Note DATE OF SERVICE: February 19, 2025 TIME: 3:52 PM PATIENT IDENTITY VERIFICATION COMPLETED USING TWO (2) STANDARD IDENTIFIERS: Name and Date of confirmed by patient verbally. FALL SCREENING: Has the patient had 2 falls in the last year or 1 fall with injury or currently using an Ambulatory Assistive Device (Walker, Cane, Wheelchair, Crutches, etc.)? No PATIENT GENDER DATA: Assigned male at PATIENT RELEVANT IMPLANT DATA REVIEWED: Yes PATIENT PRESENTS WITH AN IMPLANTABLE OR ATTACHED FRUIT CULLER: No ALLERGIES: Reviewed and unchanged CONTRAST ALLERGY: NO. EXAM: CT -CONTRAST INDUCED NEPHROPATHY RISK FACTORS: Not applicable CREATININE: Creatinine Date Value Ref Range Status 02/19/2025 1.12 0.73 - 1.22 mg/dL Final 02/01/2024 1.15 0.73 - 1.22 mg/dL Final 07/21/2023 1.13 0.73 - 1.22 mg/dL Final Estimated Glomerular Filtration Rate Date Value Ref Range Status 02/19/2025 76 >=60 mL/min/1.73m Final Comment: Estimated Glomerular Filtration Rate (eGFR) is calculated using the 2020 CKD-EPI creatinine equation. This equation utilizes serum creatinine, sex, and age as parameters. The creatinine assay has traceable calibration to isotope dilution- mass spectrometry. Refer to KDIGO guidelines for clinical interpretation. In patients with unstable renal function, e.g. those with acute kidney injury, the eGFRmay not accurately reflect actual GFR. P.O.C.T. RESULTS: POC done: Yes, See Lab Tab February 19, 2025 TREATMENT: N/A PERIPHERAL IV DATA: Ambulatory: A peripheral IV was started in the Left antecubital site with a Angio cath: 22 gauge. RADIOLOGY DEPARTMENT: CT; Exam(s) Completed: Chest Abdomen Pelvis SIGNATURE: RT Brian(Heena) PATIENT NAME: Bret Cintron DATE: February 19, 2025 TIME: 3:52 PM documented in this encounterOhiohealth [facility]04-22-2025 NoteHNO ID: [id number] Author: IRMA DURON RT(R) Service: ? Author Type: Lisw Type: Progress Notes Filed: 02/19/2025 15:53 Note Text: Radiology Service Progress Note DATE OF SERVICE: February 19, 2025 TIME: 3:52 PM PATIENT IDENTITY VERIFICATION COMPLETED USING TWO (2) STANDARD IDENTIFIERS: Name and Date of confirmed by patient verbally. FALL SCREENING: Has the patient had 2 falls in the last year or 1 fall with injury or currently using an Ambulatory Assistive Device (Walker, Cane, Wheelchair, Crutches, etc.)? No PATIENT GENDER DATA: Assigned male at PATIENT RELEVANT IMPLANT DATA REVIEWED: Yes PATIENT PRESENTS WITH AN IMPLANTABLE OR ATTACHED FRUIT CULLER: No ALLERGIES: Reviewed and unchanged CONTRAST ALLERGY: NO. EXAM: CT -CONTRAST INDUCED NEPHROPATHY RISK FACTORS: Not applicable CREATININE: Creatinine Date Value Ref Range Status 02/19/2025 1.12 0.73 - 1.22 mg/dL Final 02/01/2024 1.15 0.73 - 1.22 mg/dL Final 07/21/2023 1.13 0.73 - 1.22 mg/dL Final Estimated Glomerular Filtration Rate Date Value Ref Range Status 02/19/2025 76 >=60 mL/min/1.73m? Final Comment: Estimated Glomerular Filtration Rate (eGFR) is calculated using the 2020 CKD-EPI creatinine equation. This equation utilizes serum creatinine, sex, and age as parameters. The creatinine assay has traceable calibration to isotope dilution-mass spectrometry. Refer to KDIGO guidelines for clinical interpretation. In patients with unstable renal function, e.g. those with acute kidney injury, the eGFR may not accurately reflect actual GFR. P.O.C.T. RESULTS: POC done: Yes, See Lab Tab February 19, 2025 TREATMENT: N/A PERIPHERAL IV DATA: Ambulatory: A peripheral IV was started in the Left antecubital site with a Angio cath: 22 gauge. RADIOLOGY DEPARTMENT: CT; Exam(s) Completed: Chest Abdomen Pelvis SIGNATURE: RT Brian(R) PATIENT NAME: Bret Cintron DATE: February 19, 2025 TIME: 3:52 [facility]04-21-2025 Telephone encounter Note* Telephone Encounter - Khanh Rock PSS - 02/18/2025 9:42 AM EDT Please place order for stat creatinine order for pt , pt appt on 02/19/[address] Pt knows to come in early [facility]04-21-2025 Miscellaneous Notes* Telephone Encounter - Khanh Rock PSS - 02/18/2025 9:[address] order for stat creatinine order for pt , pt appt on 02/19/[address] Pt knows to come in early documented in this encounterOhio[facility]04-16-2024 Miscellaneous Notes* Telephone Encounter - Shweta Pineda - 02/14/2024 8:06 AM EDT Images from the original note were not included. Padma Medeiros MD [facility] Clerical Pool Please fax a copy of my office note to Dr. Wayne. Thank you, M Faxed office note to Dr. Wayne to [phone] Shweta Pineda documented in this encounterOhio[facility]04-15-2024 History of Present illness Narrative* Padma Medeiros MD - 02/13/2024 1:45 PM EDT Images from the original note were not included. [facility] UROLOGY ESTABLISHED PATIENT FOLLOW-UP NOTE PATIENT: Bret Cintron (59 year old) PCP: Keiry Wayne, DO SUMMARY: #Renal cell carcinoma of right kidney. 12/30/22 - R-RPN. Final path - [id number] G3 ccRCC. Intermediaterisk. #Pulmonary nodule. 2-mm left lung nodule, present at diagnosis, stable on CT-07/2023. ASSESSMENT: 1. History of kidney cancer - ICD9: V10.52, ICD10: Z85.528 (primary diagnosis) 2. Pulmonary nodule - ICD9: 793.11, ICD10: R91.1 3. Glucosuria - ICD9: 791.5, ICD10: R81 PLAN: #1 Chronic, stable. CT c/a/p results reviewed- no evidence of cancer recurrence. Continue cancer surveillance per AUA guidelines. #2 Chronic, stable. CT chest results reviewed- 2 mm nodule is stable, suggesting a benign etiology. #3 New, undiagnosed. I counseled the patient that I do not have expertise in this area. I recommended follow up with Dr. Wayne the patient's primary care provider for further discussion, work up, and management of this problem. Visit complexity inherent to evaluation and management associated with medical care services that serve as the continuing focal point for all needed health care services and/or with medical care services that are part of ongoing care related to a patient s single, serious condition or a complex condition. ORDERS THIS VISIT: Orders Placed This Encounter BLADDER SCAN CT ABD/PEL W IVCON Order Comments: No oral contrast. In 12 months Standing Status: Future Standing Expiration Date: 03/14/2025 Order Specific Question: Specify enteric contrast choice: Answer: None CT CHEST W IVCON Order Comments: In 12 months Standing Status: Future Standing Expiration Date: 03/14/2025 UA DIP, URINE (POC) iv contrast (will be provided with radiology test) Sig: CT ABD/PEL -Inject, intravenously, once for 1 dose.No IV access, insert saline lock prior to the beginning of sedation, infusion, injection of imaging exam. Discontinue saline lock post exam. IfPt. has a central line or IVAD, may access for administration according to line specific nursing protocol. Once exam is complete flush line and de-access according to line specific nursing protocol in the CT contrast administration guidelines link. Dispense: 1 Each Refill: 0 iv contrast (will be provided with radiology test) Sig: CT Chest W -Inject, intravenously, once for 1 dose.No IV access, insert saline lock prior to the beginning of sedation, infusion, injection of imaging exam. Discontinue saline lock post exam. IfPt. has a central line or IVAD, may access for administration according to line specific nursing protocol. Once exam is complete flush line and de-access according to line specific nursing protocol in the CT contrast administration guidelines link. Dispense: 1 Each Refill: 0 FOLLOW UP: Return in about 1 year (around 02/12/2025) for kidney cancer surveillance with CT scan results. CHIEF COMPLAINT: Patient presents with: History of kidney cancer HISTORY OF PRESENT ILLNESS: Prior notes were reviewed. The patient reports doing well. CHUCKY/AUASS FORMS TIMES IN THE PAST MONTH YOU HAD A FEELING OF NOT EMPTYING BLADDER? 0 TIMES IN PAST MONTH NEED TO URINATE AGAIN WITHIN 2 HRS OF LAST EMPTY? 0 TIMES IN PAST MONTH YOU HAVE STOPPED AND STARTED URINE FLOW? 0 TIMES IN THE PAST MONTH YOU FOUND IT DIFFICULT TO POSTPONE URINATING? 0 TIMES IN THE PAST MONTH YOU HAVE HAD A WEAK URINARY STREAM? 0 TIMES IN PAST MONTH YOU HAVE HAD TO PUSH OR STRAIN TO URINATE? 0 TIMES IN PAST MONTH YOU GET UP TO URINATE FROM SLEEP UNTIL AWAKE? 1 HOW WOULD YOU FEEL IF YOU HAD TO LIVE WITH YOUR URINARY CONDITION IT IS NOW? 0 - Delighted WHAT IT THE TOTAL AUA SCORE? 1 How do you rate your confidence that you could get and keep an erection? 2 - Low When you had erections with sexual stimuation, how often were your erections hard enough for penetration (entering your partner)? 2 - A Few Times (Much Less Than Half The Time) During sexual intercouse, how often were you able to maintain your erection after you had penetrated (entered) your partner? 2 - A Few Times (Much Less Than Half The Time) During sexual intercourse, how difficult was it to maintain your erection to completion of intercourse? 2 - Very Difficult When you attempted sexual intercourse, how often was it satisfactory for you? 2 - A Few Times (MuchLess Than Half The Time) Total Score 10 Score Breakdown 8-11 Moderate ED REVIEW OF SYSTEMS: Noncontributory ALLERGIES: ALLERGIES No Known Allergies MEDICATIONS: sildenafil (VIAGRA) 100 mg tablet TAKE 1 TABLET BY MOUTH ONCE DAILY NEEDED (1 HOUR BEFORE SEXUALACTIVITY) metformin HCl (METFORMIN ORAL) Take 1,000 mg by mouth twice daily. lisinopril 2.5 mg tablet Take 2.5 mg by mouth once daily. atorvastatin (LIPITOR) 80 mg tablet Take 80 mg by mouth daily at bedtime. aspirin, enteric coated (ASPIRIN, ENTERIC COATED) 81 mg EC tablet Take 1 tablet by mouth once daily. ry-JF-VP-Hy-Juo-Tfhlgbm-Lutein (CENTRUM) 0.4-162-18 mg tab Take by mouth once daily. iv contrast (will be provided with radiology test) CT ABD/PEL -Inject, intravenously, once for 1 dose.No IV access, insert saline lock prior to the beginning of sedation, infusion, injection of imaging exam. Discontinue saline lock post exam. If Pt. has a central line or IVAD, may access for administration according to line specific nursing protocol. Once exam is complete flush line and de-accessaccording to line specific nursing protocol in the CT contrast administration guidelines link. iv contrast (will be provided with radiology test) CT Chest W -Inject, intravenously, once for 1 dose.No IV access, insert saline lock prior to the beginning of sedation, infusion, injection of imaging exam. Discontinue saline lock post exam. If Pt. has a central line or IVAD, may access for administration according to line specific nursing protocol. Once exam is complete flush line and de-accessaccording to line specific nursing protocol in the CT contrast administration guidelines link. docusate sodium (COLACE) 100 mg capsule Take 1 capsule by mouth twice daily as needed for constipation. (Patient not taking: Reported on 02/13/2024) oxyCODONE-acetaminophen (PERCOCET) 5-325 mg tablet Take 1 tablet by mouth every 6 hours as needed for pain. (Patient not taking: Reported on 02/13/2024) pioglitazone (ACTOS) 15 mg tablet Take 45 mg by mouth once daily. (Patient not taking: Reported on 02/13/2024) PAST HISTORY: PAST MEDICAL HISTORY Diagnosis Date CKD (chronic kidney disease) stage 2, GFR 60-89 ml/min Diabetes mellitus (HCC) Pure hypercholesterolemia Renal mass PAST SURGICAL HISTORY Procedure Laterality Date PAST SURGICAL HISTORY OF umbilical hernia repair as a baby TONSILLECTOMY & ADENOIDECTOMY <AGE 13 as a child FAMILY HISTORY Problem Relation Age of Onset other (Mi and age 60) Mother other (diabetes and [place] age 60) Father Social History Tobacco Use Smoking status: Never Smokeless tobacco: Never Vaping Use Vaping Use: Never used Substance Use Topics Alcohol use: Yes Comment: occassionally Drug use: Not Currently PHYSICAL EXAMINATION: BP 134/77 Ht 180.3 cm (5' 11) Wt 93.4 kg (206 lb) BMI 28.73 kg/m Constitutional: In no acute distress. Well appearing. DATA: Clinic: URINALYSIS: URINE POC GLUCOSE UA (POCT) 100 02/13/2024 BILIRUBIN UA (POCT) Negative 02/13/2024 KETONE UA (POCT) Negative 02/13/2024 SPECIFIC GRAVITY UA (POCT) 1.020 02/13/2024 HEMOGLOBIN/BLOOD UA (POCT) Negative 02/13/2024 PH UA (POCT) 6.5 02/13/2024 PROTEIN UA (POCT) Negative 02/13/2024 UROBILINOGEN UA (POCT) 0.2 02/13/2024 NITRITE UA (POCT) Negative 02/13/2024 LEUKOCYTES UA (POCT) Negative 02/13/2024 COLOR UA (POCT) Yellow 02/13/2024 CLARITY UA (POCT) Clear 02/13/2024 Laboratory: Creatinine Date Value Ref Range Status 02/01/2024 1.15 0.73 - 1.22 mg/dL Final 07/21/2023 1.13 0.73 - 1.22 mg/dL Final 01/12/2023 1.22 0.73 - 1.22 mg/dL Final 12/31/2022 1.33 (H) 0.73 - 1.22 mg/dL Final PSA: No results found for: PSA Cultures: No data to display Susceptibility Tests - Past 1 Year No results found for the last 365 days. MEDICAL DECISION MAKING PROBLEM(S): DATA: Category 1 Review of test result(s): Ordering of test(s): Review of prior external note: Independent historian: Category 2 Independent interpretation of test: Category 3 Discussion of management or test interpretation: RISK: I have reviewed the problem list, family history, and social history documented by my ancillary staff. Padma Medeiros MD Staff Urologist documented in this encounterOhio[facility]04-03-2024 History of Present illness Narrative* Reef Irma Chambers, RT(R) - 02/01/2024 8:40 AM EDT Radiology Service Progress Note DATE OF SERVICE: February 01, 2024 TIME: 2:33 PM PATIENT IDENTITY VERIFICATION COMPLETED USING TWO (2) STANDARD IDENTIFIERS: Name and Date of confirmed by patient verbally. FALL SCREENING: Has the patient had 2 falls in the last year or 1 fall with injury or currently using an Ambulatory Assistive Device (Walker, Cane, Wheelchair, Crutches, etc.)? No PATIENT GENDER DATA: Male PATIENT RELEVANT IMPLANT DATA REVIEWED: Yes PATIENT PRESENTS WITH AN IMPLANTABLE OR ATTACHED FRUIT CULLER: No ALLERGIES: Reviewed and unchanged CONTRAST ALLERGY: NO. EXAM: CT -CONTRAST INDUCED NEPHROPATHY RISK FACTORS: Not applicable CREATININE: Creatinine Date Value Ref Range Status 02/01/2024 1.15 0.73 - 1.22 mg/dL Final 07/21/2023 1.13 0.73 - 1.22 mg/dL Final 01/12/2023 1.22 0.73 - 1.22 mg/dL Final Estimated Glomerular Filtration Rate Date Value Ref Range Status 02/01/2024 74 >=60 mL/min/1.73m Final Comment: Estimated Glomerular Filtration Rate (eGFR) is calculated using the 2020 CKD-EPI creatinine equation. This equation utilizes serum creatinine, sex, and age as parameters. The creatinine assay has traceable calibration to isotope dilution- mass spectrometry. Refer to KDIGO guidelines for clinical interpretation. In patients with unstable renal function, e.g. those with acute kidney injury, the eGFRmay not accurately reflect actual GFR. P.O.C.T. RESULTS: POC done: Yes, See Lab Tab February 01, 2024 TREATMENT: N/A PERIPHERAL IV DATA: Ambulatory: A peripheral IV was started in the Left antecubital site with a Angio cath: 18 gauge. RADIOLOGY DEPARTMENT: CT; Exam(s) Completed: Chest and Kidney SIGNATURE: RT Brina(R) PATIENT NAME: Bret Cintron DATE: February 01, 2024 TIME: 2:33 PM documented in this encounterOhiohealth [facility]10-03-2023 NoteHNO ID: [id number] Author: Padma Medeiros MD Service: ? Author Type: Physician Type: Progress Notes Filed: 08/02/2023 4:06 PM Note Text: [facility] UROLOGY ESTABLISHED PATIENT FOLLOW-UP NOTE PATIENT: Bret Cintron (58 year old) PCP: Keiry Wayne, DO SUMMARY: 1. Renal cell carcinoma of right kidney. 12/30/22 - R-RPN. Final path - [id number] G3 ccRCC. Intermediate risk. 2. Pulmonary nodule. 2-mm left lung nodule, present at diagnosis, stable on CT-07/2023. ASSESSMENT: 1. History of kidney cancer - ICD9: V10.52, ICD10: Z85.528 (primary diagnosis) 2. Malignant neoplasm of right kidney, except renal pelvis (HCC) - ICD9: 189.0, ICD10: C64.1 3. Lung nodules - ICD9: 793.19, ICD10: R91.8 PLAN: #1 Chronic, stable. CT chest and kidney results reviewed. There is no evidence of disease recurrence or metastasis. The previously seen lung nodule is stable. Continue surveillance. Follow up in [address] chest and renal. If the lung nodule is stable, then chest imaging can be switched to chest x-ray. FOLLOW UP: Return in about 6 months (around 02/01/2024) for CT scans and Creatinine. CHIEF COMPLAINT: Patient presents with: Follow Up: Renal cell carcinoma of right kidney (HCC HISTORY OF PRESENT ILLNESS: Prior notes were reviewed. The patient reports doing well. CHUCKY/AUASS FORMS No question data found. REVIEW OF SYSTEMS: Not applicable ALLERGIES: ALLERGIES No Known Allergies MEDICATIONS: iv contrast (will be provided with radiology test) CT kidney wow Inject, intravenously, once for 1 dose.No IV access, insert saline lock prior to the beginning of sedation, infusion, injection of imaging exam. Discontinue saline lock post exam. If Pt. has a central line or IVAD, may access for administration according to line specific nursing protocol. Once exam is complete flush line and de-access according to line specific nursing protocol in the CT contrast administration guidelines link. iv contrast (will be provided with radiology test) CT Chest W -Inject, intravenously, once for 1 dose.No IV access, insert saline lock prior to the beginning of sedation, infusion, injection of imaging exam. Discontinue saline lock post exam. If Pt. has a central line or IVAD, may access for administration according to line specific nursing protocol. Once exam is complete flush line and de-access according to line specific nursing protocol in the CT contrast administration guidelines link. docusate sodium (COLACE) 100 mg capsule Take 1 capsule by mouth twice daily as needed for constipation. oxyCODONE-acetaminophen (PERCOCET) 5-325 mg tablet Take 1 tablet by mouth every 6 hours as needed for pain. sildenafil (VIAGRA) 100 mg tablet TAKE 1 TABLET BY MOUTH ONCE DAILY NEEDED (1 HOUR BEFORE SEXUAL ACTIVITY) metformin HCl (METFORMIN ORAL) Take 1,000 mg by mouth twice daily. lisinopril 2.5 mg tablet Take 2.5 mg by mouth once daily. atorvastatin (LIPITOR) 80 mg tablet Take 80 mg by mouth daily at bedtime. pioglitazone (ACTOS) 15 mg tablet Take 45 mg by mouth once daily. aspirin, enteric coated (ASPIRIN, ENTERIC COATED) 81 mg EC tablet Take 1 tablet by mouth once daily. vl-JB-HC-Sq-Itr-Cdwzefp-Lutein (CENTRUM) 0.4-162-18 mg tab Take by mouth once daily. PAST HISTORY: PAST MEDICAL HISTORY Diagnosis Date CKD (chronic kidney disease) stage 2, GFR 60-89 ml/min Diabetes mellitus (HCC) Pure hypercholesterolemia Renal mass PAST SURGICAL HISTORY Procedure Laterality Date PAST SURGICAL HISTORY OF umbilical hernia repair as a baby TONSILLECTOMY AND ADENOIDECTOMY as a child FAMILY HISTORY Problem Relation Age of Onset other ([place] and age 60) Mother other (diabetes and [place] age 60) Father Social History Tobacco Use Smoking status: Never Smokeless tobacco: Never Vaping Use Vaping Use: Never used Substance Use Topics Alcohol use: Yes Comment: occassionally Drug use: Not Currently PHYSICAL EXAMINATION: BP 124/76 Ht 180.3 cm (5' 11) Wt 93.4 kg (206 lb) BMI 28.73 kg/m? Genitourinary: (1) Rectal: . (2) CVA: . (3) Genital: . (4) Gonads: . (5) Other: . Constitutional: In no acute distress. Well appearing. Respiratory: Normal respiratory effort without use of accessory muscles. Musculoskeletal: Normal gait and station Cardiovascular: Gastrointestinal: DATA: Clinic: URINALYSIS: N/a Laboratory: Creatinine Date Value Ref Range Status 07/21/2023 1.13 0.73 - 1.22 mg/dL Final 01/12/2023 1.22 0.73 - 1.22 mg/dL Final 12/31/2022 1.33 (H) 0.73 - 1.22 mg/dL Final 12/16/2022 0.95 0.73 - 1.22 mg/dL Final PSA: No results found for: (more content not included)...[facility]03-21-2023 NoteHNO ID: [id number] Author: Padma Medeiros MD Service: ? Author Type: Physician Type: Progress Notes Filed: 01/18/2023 4:14 PM Note Text: REASON FOR VISIT: Post-operative visit IMPRESSION: Bret Cintron is a 57 year old male s/p Robotic-assisted laparoscopic right partial nephrectomy; intraoperative renal ultrasound for tumor identification on 12/30/22. 1. Renal cell carcinoma of right kidney (HCC) - ICD9: 189.0, ICD10: C64.1 (primary diagnosis). 12/30/22 - R-RPN. Final path - [id number] G3 ccRCC. Intermediate risk. 2. Pulmonary nodule - ICD9: 793.11, ICD10: R91.1 3. Malignant neoplasm of right kidney, except renal pelvis (HCC) - ICD9: 189.0, ICD10: C64.1. PLAN: 1) Doing well. Pathology results reviewed; significance discussed. Proceed with surveillance. Activity restrictions until 01/30/23. Follow up in [address] renal wwo contrast, CT chest (due to pulmonary nodule on preop CT), and sCr. 2) Obtain CT chest to monitor pulmonary nodule. HPI: The patient presents for postoperative follow up. He is doing well. Pain is minimal. PATHOLOGY: FINAL DIAGNOSIS A. 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 Diagnosis Comment This case has been reviewed by Dr. Pamella Cotton, who concurs with the above findings. Synoptic Report KIDNEY: Nephrectomy 8th Edition - Protocol posted: 04/29/2021 KIDNEY: RESECTION - A SPECIMEN Procedure Partial nephrectomy Specimen Laterality Right TUMOR Tumor Focality Unifocal Tumor Site Not specified Tumor Size Greatest Dimension (Centimeters): 3.0 cm Additional Dimension (Centimeters) 2.8 cm 2 cm Histologic Type Clear cell renal cell carcinoma Histologic Grade (WHO / ISUP) G3 (nucleoli conspicuous and eosinophilic at 100x magnification) Tumor Extent Limited to kidney Sarcomatoid Features Not identified Rhabdoid Features Not identified Tumor Necrosis Not identified Lymphovascular Invasion Not identified MARGINS Margin Status All margins negative for invasive carcinoma REGIONAL LYMPH NODES Regional Lymph Node Status Not applicable (no regional lymph nodes submitted or found) PATHOLOGIC STAGE CLASSIFICATION (pTNM, AJCC 8th Edition) Reporting of pT, pN, and (when applicable) pM categories is based on information available to the pathologist at the time the report is issued. As per the AJCC (Chapter 1, 8th Ed.) it is the managing physician?s responsibility to establish the final pathologic stage based upon all pertinent information, including but potentially not limited to this pathology report. 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 LABS: Hemoglobin Date Value Ref Range Status 01/12/2023 15.6 13.0 - 17.0 g/dL Final 12/31/2022 13.6 13.0 - 17.0 g/dL Final Hematocrit Date Value Ref Range Status 01/12/2023 46.2 39.0 - 51.0 % Final 12/31/2022 41.3 39.0 - 51.0 % Final Creatinine Date Value Ref Range Status 01/12/2023 1.22 0.73 - 1.22 mg/dL Final 12/31/2022 1.33 (H) 0.73 - 1.22 mg/dL Final 12/16/2022 0.95 0.73 - 1.22 mg/dL Final No results found for: PSA URINALYSIS: No results found for: PH, SPGR, UGLUC, UBILI, UKET, UHB, UPROT, UROBIL, NITRITES, UWBC, SSA IMAGING: N/a PHYSICAL EXAMINATION BP 148/76 Ht 180.3 cm (5' 11) Wt 93.4 kg (206 lb) BMI 28.73 kg/m? General appearance: Well appearing, alert, in no acute distress, and well-hydrated, well nourished Abdomen: Abdomen soft, non-tender. Incision: c/d/i Genitourinary: n/a Padma Medeiros, [facility]03-21-2023 History of Present illness Narrative* Padma Medeiros MD - 01/18/2023 3:45 PM EDT REASON FOR VISIT: Post-operative visit IMPRESSION: Bret Cintron is a 57 year old male s/p Robotic-assisted laparoscopic right partial nephrectomy; intraoperative renal ultrasound for tumor identification on 12/30/22. 1. Renal cell carcinoma of right kidney (HCC) - ICD9: 189.0, ICD10: C64.1 (primary diagnosis). 12/30/22 - R-RPN. Final path - [id number] G3 ccRCC. Intermediate risk. 2. Pulmonary nodule - ICD9: 793.11, ICD10: R91.1 3. Malignant neoplasm of right kidney, except renal pelvis (HCC) - ICD9: 189.0, ICD10: C64.1. PLAN: 1) Doing well. Pathology results reviewed; significance discussed. Proceed with surveillance. Activity restrictions until 01/30/23. Follow up in [address] renal wwo contrast, CT chest (due to pulmonary nodule on preop CT), and sCr. 2) Obtain CT chest to monitor pulmonary nodule. HPI: The patient presents for postoperative follow up. He is doing well. Pain is minimal. PATHOLOGY: FINAL DIAGNOSIS A. 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 Diagnosis Comment This case has been reviewed by Dr. Pamella Cotton, who concurs with the above findings. Synoptic Report KIDNEY: Nephrectomy 8th Edition - Protocol posted: 04/29/2021 KIDNEY: RESECTION - A SPECIMEN Procedure Partial nephrectomy Specimen Laterality Right TUMOR Tumor Focality Unifocal Tumor Site Not specified Tumor Size Greatest Dimension (Centimeters): 3.0 cm Additional Dimension (Centimeters) 2.8 cm 2 cm Histologic Type Clear cell renal cell carcinoma Histologic Grade (WHO / ISUP) G3 (nucleoli conspicuous and eosinophilic at 100x magnification) Tumor Extent Limited to kidney Sarcomatoid Features Not identified Rhabdoid Features Not identified Tumor Necrosis Not identified Lymphovascular Invasion Not identified MARGINS Margin Status All margins negative for invasive carcinoma REGIONAL LYMPH NODES Regional Lymph Node Status Not applicable (no regional lymph nodes submitted or found) PATHOLOGIC STAGE CLASSIFICATION (pTNM, AJCC 8th Edition) Reporting of pT, pN, and (when applicable) pM categories is based on information available to the pathologist at the time the report is issued. As per the AJCC (Chapter 1, 8th Ed.) it is the managingphysician s responsibility to establish the final pathologic stage based upon all pertinent information, including but potentially not limited to this pathology report. 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 LABS: Hemoglobin Date Value Ref Range Status 01/12/2023 15.6 13.0 - 17.0 g/dL Final 12/31/2022 13.6 13.0 - 17.0 g/dL Final Hematocrit Date Value Ref Range Status 01/12/2023 46.2 39.0 - 51.0 % Final 12/31/2022 41.3 39.0 - 51.0 % Final Creatinine Date Value Ref Range Status 01/12/2023 1.22 0.73 - 1.22 mg/dL Final 12/31/2022 1.33 (H) 0.73 - 1.22 mg/dL Final 12/16/2022 0.95 0.73 - 1.22 mg/dL Final No results found for: PSA URINALYSIS: No results found for: PH, SPGR, UGLUC, UBILI, UKET, UHB, UPROT, UROBIL, NITRITES, UWBC, SSA IMAGING: N/a PHYSICAL EXAMINATION BP 148/76 Ht 180.3 cm (5' 11) Wt 93.4 kg (206 lb) BMI 28.73 kg/m General appearance: Well appearing, alert, in no acute distress, and well- hydrated, well nourished Abdomen: Abdomen soft, non-tender. Incision: c/d/i Genitourinary: n/a Padma Medeiros MD documented in this encounterOhio[facility]03-08-2023 Miscellaneous Notes* Addendum Note - Padma Medeiros MD - 01/05/2023 2:50 PM ESTAddended by: PADMA MEDEIROS on: 01/05/2023 02:50 PM Modules accepted: Orders * Telephone Encounter - Padma Medeiros MD - 01/05/2023 2:47 PM EST Bowel symptoms are usually uncommon after kidney surgery. Constipation due to narcotic pain medications is the most common side effect. I have sent a script for simethicone (gas-ex) to his pharmacy to help with the gas and bloating feeling. I recommend sticking with a more bland diet. I encourage him to wean off narcotic pain medications if he hasn't already. If he is already off narcotic pain medications and having a daily bowel movement, then he can stop Colace as well. If he develops worsening pain, nausea/vomiting, fevers/chills, then he should go to the ER. Thanks * Telephone Encounter - Arminda Byers MA - 01/05/2023 1:42 PM EST Patient called stating that he is having some issues with the site of his surgery incision. He stated that he is having bloating and cramping in the lower right abdomin area. He feels like he needs to have a BM or to pass gas, however he is not having any trouble doing either. He is feeling nauseous, becomes hot and then cold. He says that he does not feel as if he has a fever and no other signs of infection. Patient would like to know if there is something that can be can or given to help? Please advise. Arminda Byers MA documented in this encounterOhio[facility]-2023 NoteHNO ID: [id number] Author: Rajat Chandler MD Service: Urology Author Type: Resident Type: Progress Notes Filed: 12/31/2022 8:38 AM Note Text: Attestation signed by Howard Abbott MD at 12/31/2022 2:50 PM Discussed with the resident and agree with resident's findings and plan as documented in the resident's note. Howard Abbott MD UROLOGY PROGRESS NOTE PATIENT NAME: Bret Cintron DATE OF : 1965 ADMISSION DATE: 12/30/2022 10:05 AM Subjective No acute events overnight. Has ambulated multiple times Minimal pain No nausea or vomiting No fevers or chills Objective VS: BP 105/55 Pulse 73 Temp 36.7 ?C (98.1 ?F) (Oral) Resp 18 Ht 180.3 cm (5' 11) Wt 92.5 kg (204 lb) SpO2 96% BMI 28.45 kg/m? I AND O - 24hr: Intake/Output Summary (Last 24 hours) at 12/31/2022 0724 Last data filed at 12/31/2022 0549 Gross per 24 hour Intake 2300 ml Output 2350 ml Net -50 ml Physical Exam: General: Neck: Resp: Abdomen: No acute distress Supple Normal effort Soft, minimal ttp, nondistended : Catheter draining yellow urine Labs and Imaging Studies LABS: BMP: Glucose (mg/dL) Date Value 12/31/2022 141 Potassium (mmol/L) Date Value 12/31/2022 4.3 Sodium (mmol/L) Date Value 12/31/2022 135 Chloride (mmol/L) Date Value 12/31/2022 100 CO2 (mmol/L) Date Value 12/31/2022 23 Creatinine (mg/dL) Date Value 12/31/2022 1.33 BUN (mg/dL) Date Value 12/31/2022 19 Anion Gap (mmol/L) Date Value 12/31/2022 12 Calcium, Total (mg/dL) Date Value 12/31/2022 8.4 CBC: Hemoglobin (g/dL) Date Value 12/31/2022 13.6 Hematocrit (%) Date Value 12/31/2022 41.3 WBC (k/uL) Date Value 12/31/2022 12.88 Platelet Count (k/uL) Date Value 12/31/2022 198 Urinalysis: No results found for: PH, SPGR, UGLUC, UBILI, UKET, UHB, UPROT, UROBIL, NITRITES, UWBC, SSA Urine Culture: No results found for: URCUL RADIOLOGY: Assessment and Plan ASSESSMENT: 57 year old male with history of a right renal mass s/p robotic right partial nephrectomy 12/30 PLAN: - discontinue catheter - advance to regular diet - 500cc bolus due to borderline BP - maintain KEYLA drain for now, will remove prior to discharge since output low - continue to encourage ambulation and IS usage - labs reviewed - Cr increased to 1.33 - will need outpatient follow up in a few weeks for pathology review Dale Chandler MD Urology, PGY-4 December 31, 2022 7:24 [facility]03-02-2023 Miscellaneous Notes * Telephone Encounter - Padma Medeiros MD - 12/30/2022 10:03 PM EST The patient is s/p robotic partial nephrectomy. Please schedule follow up visit with me in 2 weeks with CBC and BMP. Thanks documented in this encounterOhiohealth [facility]heastern [facility] Center03-02-2023 NoteHNO ID: [id number] Author: Marcella Johnson APRN.MANAGER ZONE Service: Anesthesiology Author Type: Nurse Branch Account Executive Type: Anesthesia Procedure Notes Filed: 12/30/2022 1:02 PM Note Text: ANESTHESIOLOGY PROCEDURE NOTE Airway General Information Procedure Start Time/Medication Administration: 12/30/2022 12:19 PM Procedure End Time: 12/30/2022 2:20 PM Patient location during procedure: OR Consent Obtained: Yes Staffing MANAGER ZONE: Marcella Johnson APRN.MANAGER ZONE Performed by: MANAGER ZONE Indications and Patient Condition Indications for airway management: anesthesia Preoxygenated: yes anesthesia circuit Patient position: sniffing Method: asleep Cricoid Pressure: Yes Final Airway Details Final airway type: endotracheal airway Final Endotracheal Airway: ETT Cuffed: yes Successful intubation technique: direct laryngoscopy Endotracheal tube insertion site: oral Blade: Darcie Blade size: #4 ETT size (mm): 7.5 Measured from: lips Measurement (cm): 23 Placement verified by: capnometry Cormack-Lehane Classification: grade I - full view of glottis SIGNATURE: Marcella Johnson APRN.MANAGER ZONE PATIENT NAME: Bret Cintron DATE: December 30, 2022 TIME: 1:01 PM CSN: [id number] NoteHNO ID: [id number] Author: Kathy Burns MD Service: Anesthesiology Author Type: Anesthesiologist Type: Anesthesia Procedure Notes Filed: 12/30/2022 12:57 PM Note Text: ANESTHESIOLOGY PROCEDURE NOTE A-Line General Information Procedure Start Time/Medication Administration: 12/30/2022 12:17 PM Patient location during procedure: OR Timeout Performed Pre-procedure: timeout performed Indications: continuous blood pressure monitoring Staffing Anesthesiologist: Kathy Burns MD Performed by: anesthesiologist Preparation Sterility Preparation: hand hygiene performed prior to procedure, sterile gloves, drapes, and procedure tray, surgical cap used, mask used, skin prep agent completely dried prior to procedure Site Prep: Chloraprep Procedure Details Catheter Type: arterial line Catheter Size: 20 G Catheter Length: 1.75 in Micropuncture Kit Used: No Guidewire Used: Yes Guidewire Removed Intact: Yes Laterality: left Site: radial artery Ultrasound Guided: No Line Secured: tape and Tegaderm Events Events: patient tolerated procedure well with no complications SIGNATURE: Kathy Burns MD PATIENT NAME: Bret Cintron DATE: December 30, 2022 TIME: 12:57 PM CSN: [id number]02-[facility]-2023 NoteHNO ID: [id number] Author: Miguelina Carrillo APRN.MONKEY TRAINER Service: Anesthesiology Author Type: Nurse Practitioner Type: Progress Notes Filed: 12/20/2022 10:03 AM Note Text: Left a message to Surgeons office to get a copy of the medical optimization per PST visit. Will have Edilia in CC follow up to retrieve a copy.[facility] History and physical note* Emiliano Mcallister APRN.MONKEY TRAINER - 12/16/2022 11:20 AM EST HISTORY AND PHYSICAL EXAMINATION SERVICE DATE: 12/16/2022 SERVICE TIME: 7:27 AM PRIMARY CARE PHYSICIAN: Keiry Wayne DO REASON FOR VISIT: Bret Cintron is a 57 year old male who is scheduled for Procedure(s): XI ROBOTIC LAPAROSCOPIC NEPHRECTOMY PARTIAL (Right) S&I INTRAOPERATIVE ULTRASOUND GUIDANCE (N/A) at the request of Dr. Padma Medeiros for. My final recommendation will be communicated back to the requesting physician by way of shared medical record or letter.Visit type: PST. Subjective The patient has the following: ACTIVE PROBLEM LIST Dysmetabolic Syndrome X Mixed Hyperlipidemia Type 2 Diabetes Mellitus (Hcc) Controlled Type 2 Diabetes Mellitus Without Complication, Without Long-Term Current Use of Insulin (Hcc) Primary Hypertension COVID-19 Immunization Status Overdue - COVID-19 VACCINE (4 - Booster for Moderna series) Overdue since 11/26/2021 10/01/2021 Imm Admin: COVID-19 original vaccine, full dose, monovalent (MODERNA) 11/26/2020 Imm Admin: COVID-19 original vaccine, full dose, monovalent (MODERNA) 10/29/2020 Imm Admin: COVID-19 original vaccine, full dose, monovalent (MODERNA) CHIEF COMPLAINT: Kidney cancer HPI: Patient incidentally noted to have an enhancing 2.9 cm interpolar medial right renal mass on CT 11/12/22 in the work up for possible recurrent umbilical hernia. No hernia was noted. Renal mass isconcerning for malignancy. Patient denies pain or urinary issues. REVIEW OF SYSTEMS: General: No weight loss, malaise or fevers. Neurological: Negative for: headaches, seizures and strokes. Respiratory: Denies coughing, wheezing, SOB Cardiovascular: HLD. Denies HTN, on Lisinopril for kidney protection. Denies chest pain, palpitations, or CHF GI: Negative for: abdominal pain, nausea and vomiting. : See HPI. Endocrine: DM-oral meds Negative for: hypothyroidism. Hematology: Denies bleeding/clotting disorder Oncology: See HPI. Psych: Negative for: anxiety and depression. Musculoskeletal: Negative for: back pain, joint pain and swelling. PAST MEDICAL HISTORY Diagnosis Date CKD (chronic kidney disease) stage 2, GFR 60-89 ml/min Diabetes mellitus (HCC) Pure hypercholesterolemia Renal mass PAST SURGICAL HISTORY Procedure Laterality Date PAST SURGICAL HISTORY OF umbilical hernia repair as a baby TONSILLECTOMY & ADENOIDECTOMY <AGE 13 as a child FAMILY HISTORY Problem Relation Age of Onset other ([place] and age 60) Mother other (diabetes and [place] age 60) Father Social History Tobacco Use Smoking status: Never Smokeless tobacco: Never Vaping Use Vaping Use: Never used Substance Use Topics Alcohol use: Yes Comment: occassionally Drug use: Not Currently Prior to Admission medications as of 12/16/22 1127 Medication Sig Last Dose Taking metformin HCl (METFORMIN ORAL) Take 1,000 mg by mouth twice daily. Yes lisinopril 2.5 mg tablet Take 2.5 mg by mouth once daily. Yes atorvastatin (LIPITOR) 80 mg tablet Take 80 mg by mouth daily at bedtime. Yes pioglitazone (ACTOS) 15 mg tablet Take 45 mg by mouth once daily. Yes aspirin, enteric coated (ASPIRIN, ENTERIC COATED) 81 mg EC tablet Take 1 tablet by mouth once daily. Yes iq-PS-UZ-Rw-Grf-Ndrfldv-Lutein (CENTRUM) 0.4-162-18 mg tab Take by mouth once daily. Yes sildenafil (VIAGRA) 100 mg tablet TAKE 1 TABLET BY MOUTH ONCE DAILY NEEDED (1 HOUR BEFORE SEXUALACTIVITY) No medication comments found. ALLERGIES No Known Allergies Objective PHYSICAL EXAM: General: alert and oriented and healthy appearance. Skin: Warm, dry, no diaphoresis. HEENT: Normocephalic, atraumatic, no lymphadenopathy. Cardiovascular: regular rate and rhythm, normal S1 and S2, no rub, murmurs, or gallop. Respiratory: normal breath sounds, no wheezes or crackles. Abdomen: Soft, nontender, BSx4. Extremities: no deformity, no edema or tenderness, no joint swelling or clubbing. Neurological: normal cognition and motor skills. PAIN ASSESSMENT: VITALS: BP 130/79 Pulse 62 Temp 97.9 Resp 14 Ht 5' 11 (1.80m) Wt 204 lb (92.5kg) SpO2 99% BMI 28.46 kg/(m^2). Diagnostic tests reviewed for today's visit: Lab Value Units Date High Low HB No results within date range. HCT No results within date range. WBC No results within date range. PLT No results within date range. NA No results within date range. K No results within date range. GLUC No results within date range. BUN No results within date range. CREAT No results within date range. PTSEC No results within date range. INR No results within date range. APTT No results within date range. ALT No results within date range. AST No results within date range. TBILI No results within date range. TSH No results within date range. Lab Value Units Date High Low HCGQT No results within date range. UHCG No results within date range. HCG, BODY* No results within date range. Lab Value Units Date High Low ABORHD No results within date range. ABSCREEN No results within date range. HBA1C, [place] (%) Date Value 12/29/2011 6.3 Assessment Controlled type 2 diabetes mellitus without complication, without long-term current use of insulin (HCC) No A1C in Epic, patient states well controlled with A1C was low 6's in September 2022, on oral meds Primary hypertension Denies HTN, on Lisinopril for kidneys Prakash Activity Status Index: METS: Climb a flight of stairs or walk up a hill (5.50 METs) DASI Score: 5.5 Patient denies any chest pain or undue shortness of breath with the above physical activity. STOP-Bang Score: STOP-Bang Score: 0 [id number] Score: [id number] Score: 0 ARISCAT Score: Age: 51-80 Preoperative SpO2: >=96% Respiratory infection in the last month: No Preoperative anemia: No Surgical incision: peripheral Duration of surgery: >3 hrs Emergency procedure: No ARISCAT Score: 26 ANESTHESIA FINDINGS: Intubation History: No history of difficult intubation Significant Anesthesia Considerations: none Airway History: No history of difficult airway I - PHYSICAL EVALUATION AIRWAY Patient intubated: No. DENTAL Dental findings: teeth intact. II - ANESTHESIA PLAN Anesthetic Plan: general Beta Julienne Monitoring Plan Post Procedure Analgesic Plan Prepared for Surgery: CONSULTS: Planned Anesthetic: general The Following Tests/Procedures Have Been Initiated: Orders Placed This Encounter CBC Standing Status: Future Standing Expiration Date: 02/15/2023 BASIC METABOLIC PNL Standing Status: Future Standing Expiration Date: 02/15/2023 Type and Screen, 30 day Standing Status: Future Standing Expiration Date: 02/15/2023 Order Specific Question: Hospital of Planned Surgery or Procedure: Answer: [facility] Confirm Blood Type Order Comments: Draw separate from TSCR Standing Status: Future Standing Expiration Date: 02/15/2023 Order Specific Question: Did Blood Bank direct you to place this order: Answer: No - Presurgical Workflow FAMILY HISTORY OF ANESTHESIA:No known history of adverse anesthetic event Anticoagulation: ASA 81mg-instructed to call surgeon for preop instructions. Verbalizes understanding. Implantable Devices: None Assessment/Plan PLAN Planned Procedure: Procedure(s): XI ROBOTIC LAPAROSCOPIC NEPHRECTOMY PARTIAL (Right) S&I INTRAOPERATIVE ULTRASOUND GUIDANCE (N/A) CONSULTS Medical clearance -Dr. Keiry Wayne, appointment December 28 The Following Tests/Procedures Have Been Initiated: CBC, BMP, T&S, CONABO ordered in [facility] by FIDENCIO for surgeon Instructions Given to Patient: Instructions located in the after visit summary. Hibiclens and instructions given to patient. Patient given verbal and written preop instructions and voices comprehension and compliance. SIGNATURE: Emiliano Mcallister APRN.CNP PATIENT NAME: Bret Cintron DATE: December 16, 2022 TIME: 7:27 AM PAGER/CONTACT #: documented in this encounterOhiohealth [facility]heastern [facility] Center02-14-2023 Instructions* Patient Instructions* Emiliano Mcallister APRN.CNP - 12/14/2022 9:25 AM EST PATIENT PREOPERATIVE INSTRUCTIONS Padma Medeiros MD has scheduled you for your procedure at this surgery center: [facility]: [phone], [address] [address] Please read below carefully for your personalized instructions. Date of Surgery: December 30, 2022 Time of surgery: 12:15 pm Arrival Time for Surgery: 10:15 am Please be aware that emergency situations arise, which may delay or change your surgical time. If this happens, we will notify you as soon as possible and regret any inconvenience. Blood Thinning Medications: - Stop NSAIDS (Ibuprofen, Advil, Aleve, Motrin, Celebrex, Mobic, etc.) 7 days before surgery, as directed by your surgeon. - Stop Vitamin E, fish oil, Ginko, Vader's Wort, flax seed oil, multivitamins, CBD oil, marijuana and other over the counter herbals and dietary supplements 7 days before surgery. This would not apply to cancer patients who are prescribed Marinol or any other prescription form of marijuana or CBD. - If you take any of the following blood thinners, please contact your surgeon and the physician who prescribes it for you in order to get perioperative instructions as soon as possible: Aspirin,Coumadin, Plavix, Eliquis, Pradaxa, Xarelto, Lovenox, Brilinta, Effient, Savaysa, etc. Pain Medications: - You may take Tylenol (Acetaminophen) or any of your current prescribed pain medications that do not contain aspirin or NSAIDS as needed. Dietary Restrictions: - No solid food after midnight. - You may have 12 ounces of clear liquids (water, clear juices such as apple juice or Gatorade, carbonated beverages) until 4 hours before scheduled surgery. Medications: Approved medications to take the morning of surgery with a sip of water: Lisinopril You may take BP, heart, thyroid, anxiety/depression, seizure, and pain medications excluding NSAIDS(see above list of NSAIDS) Use inhalers as prescribed. Please bring inhalers. Please follow up with the provider that manages your diabetes and how to prepare you for surgery. If you are taking the following medications for Type 2 diabetes: Canagliflozin (INVOKANA), dapagliflozin (FARXIGA), and empagliflozin (JARDIANCE) should each be discontinued at least 3 days before scheduled surgery. Ertugliflozin (STEGLATRO) should be discontinued at least four days before scheduled surgery If you take any medications for erectile dysfunction-Cialis (Tadalafil), Levitra, Staxyn (Vardenafil) Viagra (Sildenenafil please do not take these for 48 hours before surgery. If you start any new medications after today's visit, please contact the surgeon's office. Important Reminders: - If you use CPAP/BIPAP, bring the machine with you to the surgery center. - If you are prescribed inhalers for breathing, continue using them AND bring them to the surgery center. - Candy, mints, gum and tobacco products are NOT permitted the morning of surgery. - Hearing aids, dentures and glasses may be worn the morning of surgery. - NO jewelry, body piercings, makeup, hairpins or contacts are to be worn the day of surgery. - NO lotion, creams, powders or deodorants on the skin the day of surgery -If you have a stimulator, implant or pump that requires a remote, please bring the remote with youthe day of surgery. - You will need to have someone else (Family or friend) drive you home once discharged from the hospital. You cannot take a cab or Uber. You are not allowed to drive yourself home after surgery. You will need someone to stay with you for 24 hours after surgery. -Hibiclens with instructions given day of PST. If you develop symptoms such as a fever, cold, or flu, or have other changes to your health within TWO DAYS of scheduled surgery or the morning of surgery, please contact the surgery center above. Personal Belongings: - Leave ALL valuables and money at home or with family members. - You will need a form of ID and insurance card to check in the morning of surgery. - You will have to wear a hospital gown during your stay but if you wish to bring undergarments forafter surgery you may. Emiliano Mcallister APRN.NIYA documented in this encounterOhiohealth [facility]heastern [facility] Center02-09-2023 Miscellaneous Notes* Telephone Encounter - Colton Artis RN - 12/09/2022 2:08 PM EST Patient calling about results of chest CT that you ordered. Please advise. Bridget documented in this encounterOhiohealth Southeastern Medical Center02-07-2023 NoteHNO ID: [id number] Author: JN Montiel) Service: Radiology Author Type: Technologist Type: Progress Notes Filed: 12/07/2022 7:04 AM Note Text: Radiology Service Progress Note PATIENT NAME: Bret Cintron DATE OF SERVICE: December 07, 2022 TIME: 7:04 AM PATIENT IDENTITY VERIFICATION COMPLETED USING TWO (2) IDENTIFIERS: Name and Date of confirmed by patient verbally. FALL SCREENING: Has the patient had 2 falls in the last year or 1 fall with injury or currently using an Ambulatory Assistive Device (Walker, Cane, Wheelchair, Crutches, etc.)? No PATIENT GENDER DATA: Male PATIENT RELEVANT IMPLANT DATA REVIEWED: Not Applicable RADIOLOGY DEPARTMENT: CT; Exam(s) Completed: Chest PERIPHERAL IV DATA: Not applicable SIGNED BY: RT Dinesh(Heena) December 07, 2022 7:04 AMMillinocket [facility]02-07-2023 History of Present illness Narrative* JN Montiel) - 12/07/2022 7:00 AM EST Radiology Service Progress Note PATIENT NAME: Bret Cintron DATE OF SERVICE: December 07, 2022 TIME: 7:04 AM PATIENT IDENTITY VERIFICATION COMPLETED USING TWO (2) IDENTIFIERS: Name and Date of confirmedby patient verbally. FALL SCREENING: Has the patient had 2 falls in the last year or 1 fall with injury or currently using an Ambulatory Assistive Device (Walker, Cane, Wheelchair, Crutches, etc.)? No PATIENT GENDER DATA: Male PATIENT RELEVANT IMPLANT DATA REVIEWED: Not Applicable RADIOLOGY DEPARTMENT: CT; Exam(s) Completed: Chest PERIPHERAL IV DATA: Not applicable SIGNED BY: RT Dinesh(Heena) December 07, 2022 7:04 AM documented in this encounterOhiohealth Southeastern Medical Center01-24-2023 NoteHNO ID: [id number] Author: Padma Medeiros MD Service: ? Author Type: Physician Type: Progress Notes Filed: 11/23/2022 9:00 AM Note Text: [facility] UROLOGY ESTABLISHED PATIENT FOLLOW-UP NOTE PATIENT: Bret Cintron (57 year old) PCP: Keiry Wayne, DO SUMMARY: Incidentally noted to have an enhancing 2.9 cm interpolar medial right renal mass on CT 11/12/22 in the work up for possible recurrent umbilical hernia. No hernia was detected. ASSESSMENT: 1. Right renal mass - ICD9: 593.9, ICD10: N28.89 (primary diagnosis) 2. Malignant neoplasm of right kidney, except renal pelvis (HCC) - ICD9: 189.0, ICD10: C64.1 3. CKD (chronic kidney disease) stage 2, GFR 60-89 ml/min - ICD9: 585.2, ICD10: N18.2 PLAN: The diagnosis of small renal mass was discussed in detail. Cr/GFR in 09/2022 was 1.07/71. Based on its radiographic appearance, I counseled the patient that there is an 80-90% risk of malignancy. Of malignant tumors, I counseled that 75% are indolent while 25% tend to be aggressive. At its current size, I estimate that the risk of metastasis is <2% (<4 cm). I reviewed the rationale, positive and negative predictive values (95-100% and 65-70%, respectively), potential risks (including pain, hemorrhage, hematuria, and pneumothorax), and non-diagnostic rate (up to 20%) of renal mass biopsy. For these reasons, I have counseled the patient against pursuing renal mass biopsy as it is unlikely to alter management and carries serious risks. Treatment options were discussed, including expectant management or active surveillance, partial nephrectomy, radical nephrectomy, and thermal ablation. In terms of active treatments, we discussed radical and partial nephrectomy. I discussed the fact that partial nephrectomy has the advantage of better long-term renal functional preservation, which may be advantageous in select patients, and offers equivalent long-term oncologic efficacy with a small (<5%) risk of local recurrence. We discussed the higher complication rate with partial nephrectomy and the need for long-term radiographic surveillance after surgery. In terms of thermal ablation, I discussed percutaneous cryoablation. I counseled the patient that this approach is reserved for small (<3 cm), well-located masses. I discussed the increased risk of recurrence and possible need for retreatment with this modality. The patient is interested in partial nephrectomy. I counseled the patient that partial nephrectomy is considered a major surgery that carries potential surgical risks including, but not limited to, bleeding, infection, adjacent organ injury, kidney loss, renal insufficiency, need for short-term or long-term dialysis, and cancer recurrence and anesthetic risks including, but not limited to, heart attack, stroke, pulmonary embolism/deep venous thrombosis, and . I discussed risks unique to partial nephrectomy, including ureteral injury, positive surgical margin, and conversion to radical nephrectomy. I discussed the open, laparoscopic, and robotic approaches and risk of open conversion with the minimally invasive surgery. I discussed the patient's overall health and how the patient's comorbidities may increase the risk of medical and/or surgical complications. I informed the patient that these complications may require longer hospitalization and/or additional surgery. The operation was reviewed in detail, including my preferred approach (robotic) and anticipated duration (4-6 hours). I discussed the expected postoperative course, including overnight stay in the hospital. I discussed the need for a Aranda catheter for overnight. I discussed the need for an abdominal drain that is usually removed prior to discharge from the hospital. I discussed that the patient would be on activity restrictions (no heavy lifting >15 lbs or strenuous activity) for 1 month after surgery. The patient was informed that another board-certified urologist would be assisting me with the surgery. The patient wishes to proceed with right robotic partial nephrectomy with intraoperative ultrasound for tumor identification, possible radical nephrectomy, possible open conversion . (MICHELLE) In terms of preoperative preparation for surgery, I discussed the following. Obtain CT thorax.I have asked the patient to stop the following blood thinners prior to surgery: aspirin for 7 days. A presurgical testing appointment will be requested. Clearance for surgery will be requested from: PCP. All questions were answered. (MICHELLE) I spent 40 minutes on the patient's care, including review of the chart, seeing the patient, answering questions, and documenting in the medical record. FOLLOW UP: Return for surgery. -- (more content not included)...[facility]01-24-2023 Miscellaneous Notes* Telephone Encounter - Padma Medeiros MD - 11/23/2022 8:43 AM EST Surgery: Right robotic partial nephrectomy with intraoperative ultrasound for tumor identification,possible radical nephrectomy, possible open conversion Duration: 5 hour(s) Surgeon: Padma Medeiros MD Language And Literature Division Chair: Rylan Angeles MD Location: main Anesthesia: General Fluoroscopy: No Special equipment: Yes, If yes describe:robot Presurgical testing: Yes Clearance: Yes, If yes describe: medical Orders: No Bowel prep: No Blood thinners to stop: aspirin for 7 days [facility] of Present illness Narrative* Padma Medeiros MD - 11/23/2022 8:00 AM EST [facility] UROLOGY ESTABLISHED PATIENT FOLLOW-UP NOTE PATIENT: Bret Cintron (57 year old) PCP: Keiry Wayne, DO SUMMARY: Incidentally noted to have an enhancing 2.9 cm interpolar medial right renal mass on CT 11/12/22 in the work up for possible recurrent umbilical hernia. No hernia was detected. ASSESSMENT: 1. Right renal mass - ICD9: 593.9, ICD10: N28.89 (primary diagnosis) 2. Malignant neoplasm of right kidney, except renal pelvis (HCC) - ICD9: 189.0, ICD10: C64.1 3. CKD (chronic kidney disease) stage 2, GFR 60-89 ml/min - ICD9: 585.2, ICD10: N18.2 PLAN: The diagnosis of small renal mass was discussed in detail. Cr/GFR in 09/2022 was 1.07/71. Based on its radiographic appearance, I counseled the patient that there is an 80-90% risk of malignancy. Of malignant tumors, I counseled that 75% are indolent while 25% tend to be aggressive. At its current size, I estimate that the risk of metastasis is <2% (<4 cm). I reviewed the rationale, positive and negative predictive values (95-100% and 65-70%, respectively), potential risks (including pain, hemorrhage, hematuria, and pneumothorax), and non-diagnostic rate (up to 20%) of renal mass biopsy. For these reasons, I have counseled the patient against pursuing renal mass biopsy as itis unlikely to alter management and carries serious risks. Treatment options were discussed, including expectant management or active surveillance, partial nephrectomy, radical nephrectomy, and thermal ablation. In terms of active treatments, we discussed radical and partial nephrectomy. I discussed the fact that partial nephrectomy has the advantage of better long- term renal functional preservation, which may be advantageous in select patients, and offers equivalent long-term oncologic efficacy with a small (<5%) risk of local recurrence. We discussed the higher complication rate with partial nephrectomy and the need for long-term radiographic surveillance after surgery. In terms of thermal ablation, I discussed percutaneous cryoablation. I counseled the patient that this approach is reserved forsmall (<3 cm), well-located masses. I discussed the increased risk of recurrence and possible need for retreatment with this modality. The patient is interested in partial nephrectomy. I counseled the patient that partial nephrectomy is considered a major surgery that carries potential surgical risks including, but not limited to, bleeding, infection, adjacent organ injury, kidney loss, renal insufficiency, need for short-term or long-term dialysis, and cancer recurrence and anesthetic risks including, but not limited to, heart attack, stroke, pulmonary embolism/deep venous thrombosis, and . I discussed risks unique to partial nephrectomy, including ureteral injury, positive surgical margin, and conversion to radical nephrectomy. I discussed the open, laparoscopic, and robotic approaches and risk of open conversion with the minimally invasive surgery. I discussed the patient's overall health and how the patient's comorbidities may increase the risk of medical and/or surgical complications. I informed the patient that these complications may require longer hospitalization and/or additional surgery. The operation was reviewed in detail, including my preferred approach (robotic) and anticipated duration (4-6 hours). I discussed the expected postoperative course, including overnight stay in the hospital. I discussed the need for a Aranda catheter for overnight. I discussed the need for an abdominal drain that is usually removed prior to discharge from the hospital. I discussed that the patient would be on activity restrictions (no heavy lifting >15 lbs or strenuous activity) for 1 month after surgery. The patient was informed that another board-certified urologist would be assisting me with the surgery. The patient wishes to proceed with right robotic partial nephrectomy with intraoperative ultrasound for tumor identification, possible radical nephrectomy, possible open conversion . (MICHELLE) In terms of preoperative preparation for surgery, I discussed the following. Obtain CT thorax.I have asked the patient to stop the following blood thinners prior to surgery: aspirin for 7 days. A presurgical testing appointment will be requested. Clearance for surgery will be requested from: PCP. All questions were answered. (MICHELLE) I spent 40 minutes on the patient's care, including review of the chart, seeing the patient, answering questions, and documenting in the medical record. FOLLOW UP: Return for surgery. CHIEF COMPLAINT: Patient presents with: Kidney Problem HISTORY OF PRESENT ILLNESS: The patient was last seen by Dr. Zavala on 02/18/20 for ED. Prior notes were reviewed. CT images were personally reviewed. He is feeling well. History of umbilical hernia repair as a child. No other abdominal surgeries. AUASS/CHUCKY FORMS No question data found. REVIEW OF SYSTEMS: Cardiovascular: new or worsening chest pain - denies Respiratory: new or worsening shortness of breath - denies ALLERGIES: ALLERGIES No Known Allergies MEDICATIONS: lisinopril 2.5 mg tablet Take 2.5 mg by mouth once daily. atorvastatin (LIPITOR) 80 mg tablet Take 80 mg by mouth once daily. metFORMIN ER (GLUMETZA) 1,000 mg 24 hr tablet Take 1,000 mg by mouth daily with breakfast. pioglitazone (ACTOS) 15 mg tablet Take 30 mg by mouth once daily. aspirin, enteric coated (ASPIRIN, ENTERIC COATED) 81 mg EC tablet Take 1 tablet by mouth once daily. ry-UU-OG-Qj-Wsx-Gbqafzt-Lutein (CENTRUM) 0.4-162-18 mg tab Take by mouth once daily. phentolamine-alprostadil 0.5 mg-20 mcg/mL injection Inject 10 units in office as directed. Bring COLD to injection appt. (Patient not taking: Reported on 11/23/2022) Flaxseed Oil 1,000 mg ORAL Cap Take by mouth. (Patient not taking: Reported on 11/23/2022) PAST HISTORY: History reviewed. No pertinent past medical history. History reviewed. No pertinent surgical history. History reviewed. No pertinent family history. Social History Tobacco Use Smoking status: Never Smokeless tobacco: Never Substance Use Topics Alcohol use: Yes PHYSICAL EXAMINATION: BP 128/82 Ht 180.3 cm (5' 11) Wt 94.3 kg (208 lb) BMI 29.01 kg/m Genitourinary: (1) Rectal: . (2) CVA: . (3) Genital: . (4) Gonads: . (5) Other: . Constitutional: In no acute distress. Well appearing. Respiratory: Normal respiratory effort without use of accessory muscles. Musculoskeletal: Normal gait and station Cardiovascular: Gastrointestinal: DATA: Clinic: URINALYSIS: URINE POC GLUCOSE UA (POCT) Negative 11/23/2022 BILIRUBIN UA (POCT) Negative 11/23/2022 KETONE UA (POCT) Negative 11/23/2022 SPECIFIC GRAVITY UA (POCT) 1.025 11/23/2022 HEMOGLOBIN/BLOOD UA (POCT) Negative 11/23/2022 PH UA (POCT) 6.0 11/23/2022 PROTEIN UA (POCT) Negative 11/23/2022 UROBILINOGEN UA (POCT) 0.2 11/23/2022 NITRITE UA (POCT) Negative 11/23/2022 LEUKOCYTES UA (POCT) Negative 11/23/2022 COLOR UA (POCT) Yellow 11/23/2022 CLARITY UA (POCT) Clear 11/23/2022 Laboratory: No results found for: CREAT PSA: No results found for: PSA Cultures: No flowsheet data found. Susceptibility Tests - Past 1 Year No results found for the last 365 days. MEDICAL DECISION MAKING PROBLEM(S): 1 or more, chronic, unstable problem(s) (4) DATA: Category 1 Review of test result(s): Ordering of test(s): Review of prior external note: Independent historian: Category 2 Independent interpretation of test: CT Category 3 Discussion of management or test interpretation: RISK: High (i.e. drug therapy with intensive monitoring; major surgery with patient or procedure risk factors; emergency major surgery; decision regarding hospitalization; decision not to treat due to poor prognosis) I have reviewed the problem list, family history, and social history documented by my ancillary staff. Padma Medeiros MD Staff Urologist [facility] + Plan note Future Appointments Appointment Date:10/26/2022 01:30:00 PM Scheduled Provider:KEIRY WAYNE DO Location:[facility] Appointment Type:PC OV Appointment Date:01/12/2023 08:00:00 AM Scheduled Provider:KEIRY WAYNE DO Location:[facility] Appointment Type:PC OV [facility] Evaluation + Plan note Future Appointments Appointment Date:04/24/2024 08:00:00 AM Scheduled Provider:KEIRY WAYNE DO Location:[facility] Appointment Type:PC OV Follow Up Future Scheduled Tests Laboratory* Albumin/Creatinine Ratio, Random Urine 10/25/23 [facility] evaluation note* Diagnosis Right renal mass- Primary Unspecified disorder of kidney and ureter Malignant neoplasm of right kidney, except renal pelvis (HCC) Malignant neoplasm of kidney, except pelvis CKD (chronic kidney disease) stage 2, GFR 60-89 ml/min Chronic kidney disease, Stage II (mild) documented in this encounter [facility] note* Diagnosis Onset Date Resolution Status Recurrent umbilical hernia a [facility] Work Phone: evaluation note* Diagnosis Right renal mass- Primary Unspecified disorder of kidney and ureter Malignant neoplasm of right kidney, except renal pelvis (HCC) Malignant neoplasm of kidney, except pelvis Controlled type 2 diabetes mellitus without complication, without long-term current use of insulin (HCC) Primary hypertension Unspecified essential hypertension Renal mass, right Unspecified disorder of kidney and ureter documented in this encounter [facility] note* Diagnosis Right renal mass- Primary Unspecified disorder of kidney and ureter Preoperative testing- Primary Preoperative examination, unspecified Controlled type 2 diabetes mellitus without complication, without long-term current use of insulin (HCC) Primary hypertension Unspecified essential hypertension Renal mass [N28.89 (ICD-10-CM)] Unspecified disorder of kidney and ureter Renal mass, right Unspecified disorder of kidney and ureter documented in this encounter [facility] note* Diagnosis Right renal mass- Primary Unspecified disorder of kidney and ureter documented in this encounter [facility] note* Diagnosis Bloating- Primary Flatulence, eructation, and gas pain [facility]* Diagnosis Renal cell carcinoma of right kidney (HCC)- Primary Pulmonary nodule Solitary pulmonary nodule Malignant neoplasm of right kidney, except renal pelvis (HCC) Malignant neoplasm of kidney, except pelvis Lung nodules Other nonspecific abnormal finding of lung field documented in this encounter [facility] note* Diagnosis History of kidney cancer Personal history of malignant neoplasm of kidney Malignant neoplasm of right kidney, except renal pelvis (HCC) Malignant neoplasm of kidney, except pelvis Lung nodules Other nonspecific abnormal finding of lung field documented in this encounter [facility] note* Diagnosis History of kidney cancer- Primary Personal history of malignant neoplasm of kidney Pulmonary nodule Solitary pulmonary nodule Glucosuria Glycosuria documented in this encounter [facility] note* Diagnosis Preoperative testing- Primary Preoperative examination, unspecified Controlled type 2 diabetes mellitus without complication, without long-term current use of insulin (HCC) Primary hypertension Unspecified essential hypertension Renal mass [N28.89 (ICD-10-CM)] Unspecified disorder of kidney and ureter History of kidney cancer- Primary Personal history of malignant neoplasm of kidney documented in this encounter [facility] note* Diagnosis Preoperative testing- Primary Preoperative examination, unspecified Controlled type 2 diabetes mellitus without complication, without long-term current use of insulin (HCC) Primary hypertension Unspecified essential hypertension Renal mass [N28.89 (ICD-10-CM)] Unspecified disorder of kidney and ureter History of kidney cancer Personal history of malignant neoplasm of kidney Pulmonary nodule Solitary pulmonary nodule documented in this encounter [facility] note* Diagnosis Preoperative testing- Primary Preoperative examination, unspecified Controlled type 2 diabetes mellitus without complication, without long-term current use of insulin (HCC) Primary hypertension Unspecified essential hypertension Renal mass [N28.89 (ICD-10-CM)] Unspecified disorder of kidney and ureter History of kidney cancer- Primary Personal history of malignant neoplasm of kidney Pulmonary nodule Solitary pulmonary nodule documented in this encounter [facility] noteNo assessment information availableMission [facility]al [facility] Work Phone: Hospital course Narrative No data available for this section [facility] Hospital Discharge instructions No data available for this section [facility] Hospital Discharge instructionsAmbulatory Orders* Pain Management Location: None Selected [facility] Work Phone: Proqayzs note No data available for this section [facility] Progrnew note Author Laurie May [facility] Note Date/Time August 09, 2025 1 1:49am [facility] [address] [place] [address] [address] [place] [address] OFFICE VISIT Date of Service: 08/09/25 MR#: [id number] Acct: [id number] Name: BRET CINTRON Rep #: [id number] : 1965 Provider: WYATT Hernandez Age/Sex: 60/M Location: [facility] Status: Signed Intake Vital Signs 04/25/25 08:03 Height 5 ft 11 in Intake Visit Reasons: LUMBAR SPINE Chief Complaint: MRI Review Accompanied by: Self Is patient in pain?: Yes Pain scale (1-10): 5 Allergies No Known Allergies Allergy (Verified 08/09/25 11:32) Medications ?Medication ?Instructions ?Recorded ?Confirmed ?Type lisinopril 2.5 mg tablet 1 tab PO DAILY 09/29/1907/31 History metformin 500 mg tablet,extended See Rx Instructions P O DAILY 02/05/20 08/09/25 History release 24 hr atorvastatin 80 mg tablet 80 mg PO DAILY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 Hernandez Attending physician Active Sta rt: August 01, 2025 End: August 01, 2025 Laurie May PA Referring Provider Active Star t: August 01, 2025 End: August 01, 2025 Team Status: Inactive Member Role/Relationship Status Dates Dr. Keiry Wayne DO Primary care physician Active Start: August 09, 2025 End: August 09, 2025 Dr. Keiry Wayne DO Referring Provider Active Start: August 09, 2025 End: August 09, 2025 WYATT Hernandez Attending physician Active Sta rt: August 09, 2025 End: October 10th, 2025 Goals (unrecognized section and content) Goals may be documented in a n alternate section (unrecognized sect ion and content) No Status Records FoundNo Status Records FoundNo Status Records FoundNo Status Records FoundNo Status Records FoundNo Status Records Found INFORMATION SOURCE (unrecogn ized section and content) DATE CREATED AUTHOR 08/06/2023 [facility] DATE CREATED AUTHOR AUTHOR'S ORGANIZ ATION 10/27/2023 [facility] ([place]) DATE CREATED AUTHOR AUTHOR'S ORGANIZ ATION 02/26/2025 [facility] DATE CREATED AUTHOR AUTHOR'S ORGANIZ ATION 03/06/2025 [facility] DATE CREATED AUTHOR AUTHOR'S ORGANIZ ATION 07/14/2025 [facility] DATE CREATED AUTHOR AUTHOR'S ORGANIZ ATION 08/29/2025 [facility] FOR RECORDS PERTAINING TO PATIENTS WHO ARE OR HAVE BEEN ENROLLED IN A CHEMICAL DEPENDENCY/SUBSTANCEABUSE PROGRAM, SOME INFORMATION MAY BE OMITTED. This clinical summary was aggregated from multiple sources. Caution should be exercised in using it in the provision of clinical care. This summary normalizes information from multiple sources, and as a consequence, information in this document may materially change the coding, format and clinical context of patient data. In addition, data may be omitted in some cases. CLINICAL DECISIONS SHOULD BE BASED ON THE PRIMARY CLINICAL RECORDS. [facility] [employer] [facility]. provides no warranty or guarantee of the accuracy or completeness of information in this document.
== END 2025-10-14 14:27 | disposition home or self-care (01) ==
LOC: SDC 12:05 → AC 12:16
PROVIDERS: PCP Nurse Practitioner Family; Referring Provider Anesthesiology Pain Medicine; Visit Provider Anesthesiology Pain Medicine
PROC: 3E0S3BZ Introduction of Anesthetic Agent into Epidural Space, Percutaneous Approach (ICD-10-PCS; CPT 62282; principal; 2025-10-14 13:45)
DX: M51.17 Intervertebral disc disorders with radiculopathy, lumbosacral region (principal); E11.9 Type 2 diabetes mellitus without complications; M48.07 Spinal stenosis, lumbosacral region; Z79.84 Long term (current) use of oral hypoglycemic drugs; Z79.899 Other long term (current) drug therapy
CPT/HCPCS: 62323; 01992; 64483; 77003; 82962